=== PATIENT | female | born 1980 | race Caucasian/White ===

== ENCOUNTER 2017-12-29 21:03 | Emergency (ER) | payer OTHER, SELFPAY ==
[2017-12-29 21:10] VITALS: BP 126/74; PULSE 93; RESP 20; TEMP 37.2; O2SAT 99
--- NOTE | 2017-12-29 21:20 | W.ED.GENAD ---
Discharge Plan Disposition Patient Disposition: HOME Condition: Good Discharge Details Chief Complaint: Sorethroat Clinical Impression: Acute cervical adenitis Primary Care Provider: Rosa Martin ED Provider: Benigno Bentley Home Meds and New Rx's Prescriptions: New amoxicillin-pot clavulanate 875-125 mg tablet 1 tab PO BID 10 Days Qty: 20 RF: 0 fluconazole [Diflucan] 150 mg tablet 150 mg PO ONCE PRN (Reason: vaginal yeast infection) Qty: 1 RF: 0 No Action multivitamin [Daily Multi-Vitamin] 1 EACH tablet 1 ea PO DAILY RF: 0 Discharge Instructions Instructions: Adenitis (ED) Additional Instructions: Home to rest this evening. Small, frequent sips of fluids to maintain hydration. Please take Augmentin as prescribed. May use the prescribed Diflucan x1 if needed for the development of a vaginal yeast infection. Follow-up with regular doctor if not improving in 5 days time. Return to the emergency department for any acute concerns Medical Decision Making 37year-old female with left submandibular adenitis in the face of resolving URI, that was associated with expression of purulent fluid. I do feel that she ought to be treated for bacterial adenitis and will place on a course of Augmentin. Discussed with her home management. She does state that she has had antibiotic associated vaginal yeast infections therefore will prescribe a single one-time dose of Diflucan to be used if needed. Patient appropriate outpatient management. HPI General Mode of arrival: ambulatory. Date/Time Provider Initiated Documentation: 12/29/17 21:06. Limitations to Documentation: no limitations. Information obtained by: patient. HPI Narrative: Left submandibular swelling, discomfort, purulent discharge. This is a 37-year-old healthy female presents emerged department today complaining of 7-10 days of cough, congestion, sinus pain and pressure that is begun to improve. Associated with left submandibular lymphadenopathy and intraoral swelling. She states that she expressed some purulent fluid from her left tonsillar pillar at home and had some improvement. She has not had any change to voice or inability to swallow ; no shortness of breath Related Data Home Medications Medication Instructions Recorded Confirmed multivitamin [Multi-Vitamin Daily] 1 ea PO DAILY 11/07/14 12/29/17 amoxicillin-pot clavulanate 1 tab PO BID 10 Days #20 tab 12/29/17 fluconazole [Diflucan] 150 mg PO ONCE PRN #1 tab 12/29/17 Previous Rx's Medication Instructions Recorded amoxicillin-pot clavulanate 1 tab PO BID 10 Days #20 tab 12/29/17 fluconazole [Diflucan] 150 mg PO ONCE PRN #1 tab 12/29/17 Allergies Allergy/AdvReac Type Severity Reaction Status Date / Time prochlorperazine edisylate AdvReac Severe Extrapyramidal Unverified 12/29/17 21:14 [From Compazine] affects Metronidazole HCl AdvReac Intermediate HEADACHE Unverified 12/29/17 21:14 [From Flagyl] oxycodone AdvReac Intermediate VOMITS Unverified 12/29/17 21:14 General Stated Complaint: Sorethroat DO: 4 Review of Systems Review of Systems 4 systems reviewed and otherwise neg PFSH Family History Mother Essential hypertension Father Essential hypertension Heart disease Sister No problems noted. Brother No problems noted. Grandfather No problems noted. Grandfather No problems noted. Grandmother Personal history of malignant neoplasm Grandmother Personal history of malignant neoplasm Social History Smoking/Tobacco Use Status: Never Exam Narrative Exam Narrative: GEN: awake, alert, oriented 3. Pleasant, well groomed, interactive. HEAD: Normocephalic, atraumatic ENT: Mucous membranes moist, oropharynx with erythematous tonsillar pillars, the uvula is midline. There is no asymmetry. There is left submandibular tender adenopathy present. No overlying rash appreciated. Tympanic members are clear bilaterally without distention or erythema EYES: PERRL, EOMI NECK: Full ROM, no JAX, no menigismus CHEST/RESP: Nontender, clear to auscultation bilateral, no wheeze/rhonchi/rales CARDIOVASCULAR: RRR, no murmur, rub jamey. 2+ Rad pulse bilateral Neuro: Grossly normal neurologic exam, conversant, interactive. Psych: Speech fluent, thoughts congruent, affect normal Course Vital Signs Temperature 37.2 C 12/29/17 21:10 Pulse 93 H 12/29/17 21:10 Respiratory Rate 20 12/29/17 21:10 Blood Pressure 126/74 12/29/17 21:10 Pulse Oximetry 99 12/29/17 21:10 Temperature 37.2 C 12/29/17 21:10 Pulse 93 H 12/29/17 21:10 Respiratory Rate 20 12/29/17 21:10 Respiratory Effort Non-Labored 12/29/17 21:11 Blood Pressure 126/74 12/29/17 21:10 Blood Pressure Position Sitting 12/29/17 21:10 Pulse Oximetry 99 12/29/17 21:10 Oxygen Delivery Method Room Air 12/29/17 21:10 Oxygen Flow Rate 0 12/29/17 21:10 Pain Level 5 12/29/17 21:10
[2017-12-29] MEDS: Amoxicillin 875/Clav. 125 TAB PO (21:24)
--- NOTE | 2017-12-29 21:24 | ED.GENADUL_ITS ---
Discharge Plan Disposition Patient Disposition: HOME Condition: Good Discharge Details Chief Complaint: Sorethroat Clinical Impression: Acute cervical adenitis Primary Care Provider: Rosa Martin ED Provider: Benigno Bentley Home Meds and New Rx's Prescriptions: New amoxicillin-pot clavulanate 875-125 mg tablet 1 tab PO BID 10 Days Qty: 20 RF: 0 fluconazole [Diflucan] 150 mg tablet 150 mg PO ONCE PRN (Reason: vaginal yeast infection) Qty: 1 RF: 0 No Action multivitamin [Daily Multi-Vitamin] 1 EACH tablet 1 ea PO DAILY RF: 0 Discharge Instructions Instructions: Adenitis (ED) Additional Instructions: Home to rest this evening. Small, frequent sips of fluids to maintain hydration. Please take Augmentin as prescribed. May use the prescribed Diflucan x1 if needed for the development of a vaginal yeast infection. Follow-up with regular doctor if not improving in 5 days time. Return to the emergency department for any acute concerns Medical Decision Making 37year-old female with left submandibular adenitis in the face of resolving URI , that was associated with expression of purulent fluid. I do feel that she ought to be treated for bacterial adenitis and will place on a course of Augmentin. Discussed with her home management. She does state that she has had antibiotic associated vaginal yeast infections therefore will prescribe a single one-time dose of Diflucan to be used if needed. Patient appropriate outpatient management. HPI General Mode of arrival: ambulatory . Date/Time Provider Initiated Documentation: 12/29/17 21:06 . Limitations to Documentation: no limitations . Information obtained by: patient . HPI Narrative: Left submandibular swelling, discomfort, purulent discharge. This is a 37-year-old healthy female presents emerged department today complaining of 7-10 days of cough, congestion, sinus pain and pressure that is begun to improve. Associated with left submandibular lymphadenopathy and intraoral swelling. She states that she expressed some purulent fluid from her left tonsillar pillar at home and had some improvement. She has not had any change to voice or inability to swallow ; no shortness of breath Related Data Home Medications Medication Instructions Recorded Confirmed multivitamin [Multi-Vitamin Daily] 1 ea PO DAILY 11/07/14 12/29/17 amoxicillin-pot clavulanate 1 tab PO BID 10 Days #20 tab 12/29/17 fluconazole [Diflucan] 150 mg PO ONCE PRN #1 tab 12/29/17 Previous Rx's Medication Instructions Recorded amoxicillin-pot clavulanate 1 tab PO BID 10 Days #20 tab 12/29/17 fluconazole [Diflucan] 150 mg PO ONCE PRN #1 tab 12/29/17 Allergies Allergy/AdvReac Type Severity Reaction Status Date / Time prochlorperazine edisylate AdvReac Severe Extrapyramidal Unverified 12/29/17 21: 14 [From Compazine] affects Metronidazole HCl AdvReac Intermediate HEADACHE Unverified 12/29/17 21:14 [From Flagyl] oxycodone AdvReac Intermediate VOMITS Unverified 12/29/17 21:14 General Stated Complaint: Sorethroat DO: 4 Review of Systems Review of Systems 4 systems reviewed and otherwise neg PFSH Family History Mother Essential hypertension Father Essential hypertension Heart disease Sister No problems noted. Brother No problems noted. Grandfather No problems noted. Grandfather No problems noted. Grandmother Personal history of malignant neoplasm Grandmother Personal history of malignant neoplasm Social History Smoking/Tobacco Use Status: Never Exam Narrative Exam Narrative: GEN: awake, alert, oriented 3. Pleasant, well groomed, interactive. HEAD: Normocephalic, atraumatic ENT: Mucous membranes moist, oropharynx with erythematous tonsillar pillars, the uvula is midline. There is no asymmetry. There is left submandibular tender adenopathy present. No overlying rash appreciated. Tympanic members are clear bilaterally without distention or erythema EYES: PERRL, EOMI NECK: Full ROM, no JAX, no menigismus CHEST/RESP: Nontender, clear to auscultation bilateral, no wheeze/rhonchi/rales CARDIOVASCULAR: RRR, no murmur, rub jamey. 2+ Rad pulse bilateral Neuro: Grossly normal neurologic exam, conversant, interactive. Psych: Speech fluent, thoughts congruent, affect normal Course Vital Signs Temperature 37.2 C 12/29/17 21:10 Pulse 93 H 12/29/17 21:10 Respiratory Rate 20 12/29/17 21:10 Blood Pressure 126/74 12/29/17 21:10 Pulse Oximetry 99 12/29/17 21:10 Temperature 37.2 C 12/29/17 21:10 Pulse 93 H 12/29/17 21:10 Respiratory Rate 20 12/29/17 21:10 Respiratory Effort Non-Labored 12/29/17 21:11 Blood Pressure 126/74 12/29/17 21:10 Blood Pressure Position Sitting 12/29/17 21:10 Pulse Oximetry 99 12/29/17 21:10 Oxygen Delivery Method Room Air 12/29/17 21:10 Oxygen Flow Rate 0 12/29/17 21:10 Pain Level 5 12/29/17 21:10
[2017-12-29 21:33] VITALS: BP 133/80; PULSE 88; RESP 16; TEMP 36.8; O2SAT 99
== END 2017-12-29 21:34 | disposition home or self-care (01) ==
PROVIDERS: Emergency Provider Emergency Medicine; PCP Nurse Practitioner Gerontology
DX: L04.0 Acute lymphadenitis of face, head and neck (principal)
CPT/HCPCS: 99283

== ENCOUNTER 2019-01-28 00:37 | Outpatient (CLI) | payer OTHER, SELFPAY ==
[2019-01-28 08:00] LABS: Hemoglobin A1C 5.2 % (4.5-6.2)
[2019-01-28 08:23] LABS: Calculated LDL 109 mg/dL; Cholesterol 184 mg/dL (50-200); HDL Cholesterol 60 mg/dL (40-60); Triglyceride 77 mg/dL (30-150)
== END 2019-01-28 00:57 ==
PROVIDERS: PCP Nurse Practitioner; Visit Provider Nurse Practitioner
DX: Z13.6 Encounter for screening for cardiovascular disorders (principal); Z13.1 Encounter for screening for diabetes mellitus
CPT/HCPCS: 36415; 80061; 83036

== ENCOUNTER 2019-01-28 03:10 | Outpatient (CLI) | payer OTHER, SELFPAY ==
--- NOTE | 2019-01-28 08:40 | DI.US_ITS ---
EXAM: US PELVIS TRANSVAGINAL CLINICAL HISTORY: Irregular menses, N92.6 TECHNIQUE: Ultrasound performed using standard protocol. COMPARISON: No exams were available for comparison FINDINGS: Pelvic ultrasound was performed transabdominal and transvaginally. Please see the accompanying data sheet for measurements of the pelvic structures. Uterus is unremarkable in appearance with a 4 brandy meter homogeneous endometrial stripe. No free fluid identified in the cul-de-sac. Limited scanning of the kidneys is unremarkable. The ovaries have a normal follicular appearance. Note is made of prominence of ovarian veins bilater ally measuring up to 13-14 millimeters in diameter, clinical correlation requested regarding any poss ibility of pelvic congestion syndrome. IMPRESSION: Unremarkable examination except for prominent pelvic veins, consider pelvic congestion syndrome. Ple ase correlate clinically.
== END 2019-01-28 03:30 ==
PROVIDERS: PCP Nurse Practitioner; Visit Provider Obstetrics & Gynecology
DX: N92.6 Irregular menstruation, unspecified (principal); N94.89 Other specified conditions associated with female genital organs and menstrual cycle
CPT/HCPCS: 76830; 76856

== ENCOUNTER 2019-01-30 10:50 | Inpatient (IN) | payer OTHER, SELFPAY ==
[2019-01-30] VITALS (89 sets, daily range): BP systolic 77–115; BP diastolic 40–70; PULSE 68–113; RESP 10–36; TEMP 37–39; O2SAT 95–100
[2019-01-30] MEDS: Normal Saline 1,000 ML 1000 ML IV ×2 (11:25→12:42)
--- NOTE | 2019-01-30 11:31 | W.ED.GENAD ---
Discharge Plan Disposition Patient Disposition: [facility] INPATIENT Condition: Serious Discharge Details Chief Complaint: Abd Prob Clinical Impression: Nausea & vomiting, Acute hypotension, RUQ abdominal tenderness Primary Care Provider: Monique Bruno ED Provider: Julián Pena Home Meds and New Rx's Prescriptions: No Action ibuprofen 200 mg tablet 200 mg PO Q6H PRNRF: 0 Medical Decision Making 1130??38-year-old female presents with nausea, intractable vomiting, left upper abdominal pain since last night. Suspect gastritis. Patient notes Zofran not working. Allergy to Compazine. Has tolerated Phenergan in the past and requests this. We will give Phenergan IV slowly. Will give IV fluid bolus. Consider biliary disease. Will check LFTs. Less likely pancreatitis. Will check lipase. -- Labs reviewed and non diagnostic. LFTs nl. Lipase nl. Plan to give additional NS 1L. -- Patient hypotensive 77/40. Abdomen re examined and ttp RUQ. No peritoneal findings. Now febrile [address]F. Will CT abdomen and pelvis to assess for acute surgical process. Consider ulcer although no hematemesis, bright red blood per rectum or melena. --CT the abdomen pelvis interpreted by radiology: IMPRESSION: 1. No calcified gallstones. No definite gallbladder wall thickening or pericholecystic fluid. No significant biliary ductal dilatation. 2. The bowel is not opacified with contrast but there are findings suspicious for some bowel wall thickening particularly involving the distal small bowel. Findings could represent enteritis. 3. Small amount of free fluid within the pelvic cul-de-sac likely physiologic in a patient this age. 4. Prominent pelvic venous structures noted in the adnexa bilaterally greater on the left than the right. Prominence of the ovarian veins. In the appropriate setting the findings could be related to pelvic congestion syndrome. -- Repeat Hb decreased to 12.8 - suspect dillutional but will need to trend. Patient to recieve another 500mL bolus. 18:35 -- On reassessment, patient still feels generally weak. BP improved to 100/56 and HR improved 90s. Plan to admit. I called and spoke with Dr. Mireles who will admit the patient. He request surgery be notified of the patient's presentation. Patient has received approximately 2.5L IVF. 18:40 -- I called and consulted Dr. Westfall and discussed ED presentation and course including diagnostics. HPI General Mode of arrival: ambulatory. Date/Time Provider Initiated Documentation: 01/30/19 10:53. Limitations to Documentation: no limitations. Information obtained by: patient. HPI Narrative: 38-year-old female here with chief complaint of nausea. Patient notes she has been nauseous and vomiting every hour since last night around 9 PM. Symptoms are severe with no modifiers. She took Zofran 2 times this morning without relief. She has associated left upper abdominal discomfort that she believes is dyspepsia. She states she did have some abdominal pain prior to the onset of vomiting. She denies associated loose stool. There is a coworker with similar GI distress although shorter duration. She denies recent travel. No exotic or undercooked foods. Related Data Home Medications Medication Instructions Recorded Confirmed ibuprofen 200 mg tablet 200 mg PO Q6H PRN 01/28/19 01/30/19 Allergies Allergy/AdvReac Type Severity Reaction Status Date / Time prochlorperazine edisylate Allergy Severe Extrapyramidal Unverified 01/30/19 11:25 [From Compazine] affects Metronidazole HCl AdvReac Intermediate HEADACHE Unverified 01/30/19 11:25 [From Flagyl] oxycodone AdvReac Intermediate VOMITS Unverified 01/30/19 11:25 General Stated Complaint: Abd Prob DO: 3 Review of Systems All systems reviewed & are unremarkable except as noted in HPI and below Constitutional Constitutional: Denies fever(s) Gastrointestinal Gastrointestinal: Reports abdominal pain, Denies melena, Denies hematochezia, Denies coffee ground emesis, Denies diarrhea, Reports nausea and Reports vomiting PFSH Family History Mother Essential hypertension Father Essential hypertension Heart disease Aortic stenosis, CABG with valve in 2014 Alcohol abuse Colon cancer hemicolectomy Sister Cancer Substance abuse Maternal Grandfather No problems noted. Paternal Grandfather , MVA 1986 No problems noted. Maternal Grandmother Breast cancer Paternal Grandmother Colorectal cancer Daughter No problems noted. Daughter No problems noted. Social History Smoking/Tobacco Use Status: Never Alcohol Intake: current Alcohol Intake frequency: 0-2 drinks per day Alcohol type: wine Drug use: Never Substance use type: does not use Caregiver/Support person: No Household members: spouse and children Housing: house Communication Needs: Corrective Lenses Do you need help understanding health information?: Never Pets and animals: Yes Pets and animals: cat(s) Sexually active: Yes Do you think of yourself as: straight/heterosexual Current gender identity: female What is your relationship status?: How often do you talk on the phone with friends or family?: twice per week How often do you get together with friends or relatives?: once per week How often do you attend yazidi or episcopalian services?: decline to answer Do you belong to any clubs or organized social groups?: no Panel score (0-1 are the most socially isolated patients): 2 What type of physical activity do you participate in: bicycling, other Details: Skiing and running Duration: 45-60 minutes/day Frequency: 5-6 times per week Carmencita/Roman Catholic: None Special carmencita needs: No Seatbelt use: always Helmet use: Yes Drive intox or ride w/intox jitney driver: No Do you feel safe at home: Yes Do you feel safe in your relationship?: Yes Exam Const General: cooperative and uncomfortable HENKS Head: normocephalic Mouth: mucous membranes dry Eyes Conjunctivae: normal conjunctivae Sclera: normal sclerae Neck Neck: trachea midline and supple Resp Auscultation: clear to auscultation bilaterally, no rales, no rhonchi and no wheezes Cardio Jugular venous pressure: no JVD Rate: tachycardic Rhythm: regular rhythm GI Palpation: soft, not firm, no guarding, no masses, not rigid and tender in the RUQ; with no rebound tenderness Skin General skin exam: no rashes or lesions noted Neuro General: alert, awake and tone normal Extrem General: no edema Psych Appearance: grossly normal Mental Status: mental status grossly normal Course Vital Signs Vital signs: Vital Signs Temperature 37.0 C 01/30/19 10:53 Pulse 108 H 01/30/19 10:53 Respiratory Rate 20 01/30/19 10:53 Blood Pressure 115/70 01/30/19 10:53 Pulse Oximetry 98 01/30/19 10:53 Temperature 37.0 C 01/30/19 10:53 Temperature Source Tympanic 01/30/19 10:53 Pulse 108 H 01/30/19 10:53 Respiratory Rate 20 01/30/19 10:53 Respiratory Effort Non-Labored 01/30/19 11:19 Blood Pressure 115/70 01/30/19 10:53 Pulse Oximetry 98 01/30/19 10:53 Oxygen Delivery Method Room Air 01/30/19 10:53 Oxygen Flow Rate 0 01/30/19 10:53 Pain Level 6 01/30/19 10:53 Comment 01/30/19 10:53
[2019-01-30 11:37] LABS: Abs Immature Grans 0.01 k/cumm (0.0-0.09); Absolute Basophil Count 0.02 k/cumm (0.0-0.2); Absolute Eosinophil Count 0.01 k/cumm (0.0-0.7); Absolute Lymphocyte Count 0.17 k/cumm (1.2-3.4); Absolute Monocyte Count 0.63 k/cumm (0.11-0.7); Absolute Neutrophil Count 7.85 k/cumm (1.2-6.7); Basophils % 0.2; Eosinophils % 0.1; HGB 13.9 g/dL (12.0-15.5); Immature Grans % 0.1; Mean Corp. HGB Concentration 33.1 g/dL (32.0-36.0); Mean Corpuscular Volume 90.5 fL (80-95); Mean Platelet Volume 9.7 fL (8.0-11.0); Monocytes % 7.2; Neutrophils % 90.4; Platelet Count 332 x1000/uL (130-400); RBC 4.64 m/cumm (4.00-5.20); RBC Distribution Width 13.2 % (11.7-14.6); White Blood Cell Count 8.69 k/cumm (4.4-10.8)
[2019-01-30 11:58] LABS: ALT 21 U/L (14-59); AST 15 U/L (15-37); Albumin 3.9 g/dL (3.4-5.0); Alkaline Phosphatase 54 U/L (46-116); Anion Gap 11.3 mmol/L (3-11); BUN 19 mg/dL (7-18); Bilirubin, Total 0.8 mg/dL (0.2-1.0); CO2 24.7 mmol/L (21.0-32.0); CREATININE 0.78 mg/dL (0.55-1.02); Calcium 8.9 mg/dL (8.5-10.1); Chloride 106 mmol/L (98-107); Glucose 115 mg/dL (70-100); Lipase 53 U/L (73-393); Potassium 3.7 mmol/L (3.5-5.1); Sodium 142 mmol/L (136-145); Total Protein 7.8 g/dL (6.4-8.2)
[2019-01-30] MEDS: FAMOTIDINE 20 MG/50 ML BAG 200 MG IVPB (12:01)
[2019-01-30] MEDS: DEXTROSE 5%-0.9% SALINE 1,000 ML 150 ML IV (13:42)
[2019-01-30 13:46] LABS: Bilirubin Negative (Negative); Blood Trace-lysed (Negative); Clarity Clear (Clear); Glucose Negative (Negative); Ketones Trace mg/dL (Negative); Leukocyte Esterase Negative (Negative); Nitrite Negative (Negative); Urobilinogen 0.2 EU/dL (Up TO 0.2); pH 7.5 (5-8)
[2019-01-30 13:47] LABS: Lactate 1.3 mmol/L (0.6-1.4)
[2019-01-30 13:53] LABS: HCT 38.5 % (36.0-46.0); HGB 12.8 g/dL (12.0-15.5); Mean Corp. HGB Concentration 33.2 g/dL (32.0-36.0); Mean Corpuscular Hemoglobin 30.5 pg (27.0-33.0); Mean Corpuscular Volume 91.7 fL (80-95); Mean Platelet Volume 9.5 fL (8.0-11.0); Platelet Count 291 x1000/uL (130-400); RBC Distribution Width 13.1 % (11.7-14.6); White Blood Cell Count 7.53 k/cumm (4.4-10.8)
[2019-01-30 14:05] LABS: Bacteria Rare HPF (Negative); C & S Indicated? No; Casts Negative LPF (Negative); Crystals Negative HPF (Negative); Epithelial Cells Moderate HPF (Negative); Mucus Trace (Negative); Other Cells Rare Renal (Negative); WBC 0-2 HPF (0-5)
--- NOTE | 2019-01-30 14:16 | DI.CT_ITS ---
EXAM: CT ABDOMEN PELVIS W CLINICAL HISTORY: ruq ttp, low BP, nausea and vomiting TECHNIQUE: The exam was performed according to the usual protocol utilizing 100 cc's of Omnipaque 35 0. COMPARISON: No exams were available for comparison FINDINGS: No focal consolidating infiltrates are seen in the lung bases. The dome of the liver is not included. No hepatic mass is seen. The portal, superior mesenteric and splenic veins are patent. There are no stones seen within the gallbladder. No gallbladder wall thickening is present. There i s no biliary ductal dilatation. There is decreased attenuation adjacent to the gallbladder in the li raimundo. This may represent focal fatty infiltration. The pancreas and adrenal glands are unremarkable. Spleen is unremarkable except for a 9 mm cyst anteriorly. The kidneys, ureters and bladder are unremarkable. There are prominent venous structures within the adnexa bilaterally. The findings are more prominent on the left. This may represent pelvic congestion syndrome. The aorta is of normal caliber. There are mildly prominent lymph nodes in the mesentery in the left periaortic region. There is a small amount of free fluid in the pelvis. This may be physiologic in a patient of this ag e. No pneumoperitoneum is present. There does appear to be mild bowel wall thickening in the right lower quadrant. This appears to be w ithin the distal small bowel/ileum. There is no evidence of bowel obstruction. The appendix is not visualized definitively. There is a moderate amount of stool seen throughout the colon. There are mild degenerative changes seen in the spine. Incidental note is made of a small fat containing umbilical hernia. IMPRESSION: 1. Mild bowel wall thickening in the distal small bowel/ileum. The findings are suspicious for enter itis. 2. No evidence of cholelithiasis or gallbladder wall thickening. No biliary ductal dilatation. 3. Prominent veins in the adnexa bilaterally. This may reflect pelvic congestion syndrome. Please c orrelate clinically. 4. Small amount of free fluid in the pelvis. This may be physiologic in a patient this age.
[2019-01-30] MEDS: Omnipaque 350 MG/ML 100 ML BTL IJ (14:20)
[2019-01-30] MEDS: Normal Saline Flush 10 ML SYR IVP ×2 (14:21→23:02)
--- NOTE | 2019-01-30 14:34 | DI.VRAD_ITS ---
Addendum created by Damaris Goode MD on 01/30/2019 7:12:38 PM EST Results discussed withMiriam Sykeskhloe at 6:12 PM central time Initial report created on 01/30/2019 2:34:20 PM EST PROCEDURE INFORMATION: Exam: CT Abdomen And Pelvis With Contrast Exam date and time: 01/30/2019 2:10 PM Clinical history: 38 years old, female; Abdominal pain; Localized; Right upper quadrant (ruq) TECHNIQUE: Imaging protocol: Computed tomography of the abdomen and pelvis with intravenous contrast. Contrast material: OMNIPAQUE 350; Contrast volume: 100 ml; Contrast route: IV 20G RAC; COMPARISON: US PELVIS TRANSVAGINAL 01/28/2019 9:18 AM FINDINGS: Lungs: Lung bases are clear. Pleural effusion is not seen. Liver: No focal intrahepatic abnormality is identified. Gallbladder and bile ducts: No calcified gallstones are identified. There is no definite gallbladder wall thickening, significant pericholecystic fluid identified. There is no significant intra-nor extrahepatic biliary ductal dilatation. Pancreas: Pancreas is unremarkable. No pancreatic duct dilatation. No peripancreatic inflammation. Spleen: There is a small cyst noted anteriorly within the spleen. It measures approximately 9 mm in maximum diameter on series 4 image 8. Spleen is normal in size. Adrenals: Adrenals are unremarkable Kidneys and ureters: No radiopaque urinary tract calculi. No evidence of hydronephrosis. Stomach and bowel: There is no evidence of bowel obstruction, mass or pneumatosis. There are findings suspicious for possible bowel wall thickening particularly involving the distal small bowel/ileum. Findings could represent enteritis. Appendix: The appendix is not well delineated but there are no definite findings to suggest acute appendicitis. Intraperitoneal space: Small amount of free fluid is seen within the pelvic cul-de-sac which may be physiologic in a patient of this age. No significant ascites focal collections or free intraperitoneal air is identified. Vasculature: Aorta is non-aneurysmal. Lymph nodes: There are a few small mesenteric nodes which do not appear significantly enlarged by size criteria. Bladder: Bladder is unremarkable Reproductive: The uterus is anteverted. Prominent pelvic veins are noted greater on the left than the right. There is enlargement of the ovarian veins. There is no evidence of an adnexal mass. Bones/joints: There is no acute or destructive bony abnormality. Soft tissues: No significant subcutaneous abnormality. Incidental note is made of a small fat containing ventral/embolus hernia. IMPRESSION: 1. No calcified gallstones. No definite gallbladder wall thickening or pericholecystic fluid. No significant biliary ductal dilatation. 2. The bowel is not opacified with contrast but there are findings suspicious for some bowel wall thickening particularly involving the distal small bowel. Findings could represent enteritis. 3. Small amount of free fluid within the pelvic cul-de-sac likely physiologic in a patient this age. 4. Prominent pelvic venous structures noted in the adnexa bilaterally greater on the left than the right. Prominence of the ovarian veins. In the appropriate setting the findings could be related to pelvic congestion syndrome. Dictated and Authenticated by: Damaris Goode MD. Ordering:SIMEON Gallego MD
[2019-01-30] MEDS: Normal Saline 500 ML IV (18:47)
--- NOTE | 2019-01-30 19:46 | NUR.NOTE ---
Nursing Note: IVF rate decreased to 125ml/hour
--- NOTE | 2019-01-30 20:54 | SCONE_ITS ---
Date of service: 01/30/19 Time of Service: 20:54 Assessment and Plan Assessment and plan (1) Enteritis: Status: Acute Assessment and plan: I did speak w/ the rads who read her CT. The GB was nl- there was no GB wall thickening, no pericholecystic fluid, no GS, the intra/extra-H. ducts are nl. Bile ducts and pancreatic ducts are nl. Pancrease appears nl. There is no s/s of SBO. There is no s/s of any conduit cleaner pathology. The appendix wasn't seen. But, there was no fecalith/there is fluid in there area. There is some mild bowel wall thickening in the distal ileum/TI region. It does not involve the cecum. (there is no hx of IBD). There was a sm amount of fluid in the abdomen, but this is w/in the parameters of physiologic. (2) Hypotension: Status: Acute Assessment and plan: Her mucous membranes are still very dry. Her urine still appears concentrated despite for 4L of IVF. She has had a period ongoing for over 30days, but she did not have a Hgb checked. Her last Hgb on file was 07/02/15 nad was 12. her intial hgb on presentation to the ED was 123.9. repat was 12.8 and #3 11.9. Excluding - her hgb seems to run around 12. Again, she has been bleeding for the last 30 days, but did not have a hgb done on 01/28. Her hgb at this time may actually be lower than her nl of 12. She has not vomited up any blood at home. She has not vomited blood since she h as been in the ED. She does feel slt nauseated. She has no abdominal pain at this time, no distention. Mild pain with deep palpation- but this is prob from wretching. She is not passing any blood through the lower GI tract. I don't think this is from blood loss or sepsis. Continue hydration and antiemetics. follow hgb. PPI supportive care (3) Dehydration, moderate: Status: Acute History of Present Illness Narrative: pt presented to ED today w/ c/o of N/V. She was sin her normal state of good health [place] at work, but she has been having lots of back pain. This is more low back adn sciatica area, not in the T10 o the right area. She has had children. She has been taking lg amounts of NSAID's for this pain. She is not currently on a stomach meds. She has no HX of stomach problems. 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 She was started on a PPI, but didn't notice any difference and is not currently on any stomach meds. She does drink lots of coffee. Social ETOH use and non-smoker. She is very active. No one at home is ill. A co worker did have the flu- but it only lasted 24 hrs. Everyone in the family ate the same food and no one is ill. Prior to Friday night- She has not had any RUQ pain, no fatty food/pork intolerances. She has had no problems w/ H/I. She has no reflux s/s. She has had no diarrhea assoc w/ eating. She did eat maldonado last night. Prior to this episode, her bowels are regular. She has had no bloating or diarrhea. no wt loss, no food intolerances/allergies. She doesn't think she vomited up any blood. She has not noticed any blood om her stools. She has been having problems w/ continuous menstrual bleeding, and has had a period for more than 30 days. She had an pelvic US done on 01/28 than was nl except for enlargement of one of the ovarian veins. She says she doesn't have any abdominal pain currently. She had no pain prior to the n/v. She kobi fever/chills. She has no abdominal pain at this time. She has not had any diarrhea. She has never had anything like beofre. She denies trauma or unusual activity. She feels very tired. The nausea has passed. She is noted to be still very hypotensive adn dizzy when she stands She has not thrown up since she has been in the ED or ICU. She has not had a BM. Her urine is still very dark adn concentrated and has many a 1/2 tsp of blood in it. Her mucous membranes are still very dry. I did perform a bedside US- I was able to visualize the GB. There was no pericholecystic fluid, no wall thickening, no stones or sludge. No shadowing. The V. Cava appears full. There was no fluid around the liver. Consults Consult date: 01/30/19 Requesting physician: Cedrick Mireles Review of Systems All systems reviewed & are unremarkable except as noted in HPI and below Constitutional Constitutional: Reports as per HPI [facility] Medical History (Updated 01/30/19 @ 23:30 by Michelle Westfall DO) Dehydration, moderate (Acute) Enteritis (Acute) Hypotension (Acute) Nausea and vomiting in adult (Acute) Family History Mother Essential hypertension Father Essential hypertension Heart disease Aortic stenosis, CABG with valve in 2015 Alcohol abuse Colon cancer hemicolectomy Sister Cancer Substance abuse Maternal Grandfather No problems noted. Paternal Grandfather , MVA 1986 No problems noted. Maternal Grandmother Breast cancer Paternal Grandmother Colorectal cancer Daughter No problems noted. Daughter No problems noted. Social History Smoking/Tobacco Use Status: Never Alcohol Intake: current Alcohol Intake frequency: 0-2 drinks per day Alcohol type: wine Drug use: Never Substance use type: does not use Caregiver/Support person: No Household members: spouse and children Housing: house Communication Needs: Corrective Lenses Do you need help understanding health information?: Never Pets and animals: Yes Pets and animals: cat(s) Sexually active: Yes Do you think of yourself as: straight/heterosexual Current gender identity: female What is your relationship status?: How often do you talk on the phone with friends or family?: twice per week How often do you get together with friends or relatives?: once per week How often do you attend congregation or pentecostal services?: decline to answer Do you belong to any clubs or organized social groups?: no Panel score (0-1 are the most socially isolated patients): 2 What type of physical activity do you participate in: bicycling, other Details: Skiing and running Duration: 45-60 minutes/day Frequency: 5-6 times per week Carmencita/Temple: None Special carmencita needs: No Seatbelt use: always Helmet use: Yes 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 Do you feel safe at home: Yes Do you feel safe in your relationship?: Yes Exam Const General: cooperative, healthy appearing, comfortable, no acute distress, well developed and well groomed Nutritional Appearance: average body habitus and well nourished Orientation: alert, awake and oriented x3 [facility] Head: normal to inspection, normocephalic and atraumatic Ears: hearing grossly normal bilaterally and external ears normal General nose exam: external nose normal Face and sinus: normal facial exam and sinuses nontender Mouth: oral mucosae normal, lip normal, tongue normal and moist mucous membranes abnormal Teeth and gingiva: dentition normal Eyes General: appearance normal, both eyes and all related structures Conjunctivae: conjunctivae normal Sclera: sclerae normal Pupils: PERRL Neck Neck: normal visual inspection and full ROM Chest Chest: normal inspection of the chest Resp Effort & Inspection: normal respiratory effort, able to speak in complete sentences, no cough, no nasal flaring, not tachypneic and no use of accessory muscles Auscultation: clear to auscultation bilaterally, no rales, no rhonchi and no wheezes Cardio Jugular venous pressure: no JVD Rate: regular rate Rhythm: regular rhythm GI Inspection: normal to inspection, no edema and non-distended Palpation: soft, no masses, nontender and No ascites Auscultation: normal bowel sounds Other: no pain. some mild soreness in upper abdomen- but this may be from retching. no distention . no R/R/G + BS Skin General skin exam: no rashes or lesions noted Trauma: no lacerations or abrasions Neuro General: alert, oriented x3, oriented, gait normal, moves all extremities, no focal motor deficits and CN's II-XI intact bilaterally Cognition: normal cognition Speech: speech normal Gait: normal gait Motor: muscle tone normal throughout Extrem General: normal to inspection, full ROM and no clubbing, cyanosis or edema Psych Appearance: grossly normal and well kempt Mental Status: mental status grossly normal Speech and Movement: speech and movement normal Affect: normal affect Results Last Vital Signs Temp 37.2 C 01/30/19 20:21 Pulse 83 01/30/19 19:46 Resp 20 01/30/19 19:50 BP 89/48 L 01/30/19 19:46 Pulse Ox 98 01/30/19 19:50 Labs Result diagrams: 01/30/19 20:42 01/30/19 20:42 Labs: Laboratory Results - last 24 hr 01/30/19 01/30/19 01/30/19 11:00 11:00 13:27 WBC 8.69 RBC 4.64 Hgb 13.9 Hct 42.0 MCV 90.5 MCH 30.0 MCHC 33.1 RDW 13.2 Plt Count 332 MPV 9.7 Immature Gran % 0.1 Neutrophils % 90.4 Lymphocytes % 2.0 Monocytes % 7.2 Eosinophils % 0.1 Basophils % 0.2 Absolute Neutrophils 7.85 H Absolute Lymphocytes 0.17 L Absolute Monocytes 0.63 Absolute Eosinophils 0.01 Absolute Basophils 0.02 Sodium 142 Potassium 3.7 Chloride 106 Carbon Dioxide 24.7 Anion Gap 11.3 H BUN 19 H Creatinine 0.78 Estimated GFR/1.73 m2 >= 60.00 Glucose 115 H Lactate 1.3 Calcium 8.9 Total Bilirubin 0.8 AST 15 ALT 21 Alkaline Phosphatase 54 Total Protein 7.8 Albumin 3.9 Lipase 53 L Urine Color Urine Clarity Urine pH Ur Specific [place] Urine Protein Urine Ketones Urine Blood Urine Nitrite Urine Bilirubin Urine Urobilinogen Ur Leukocyte Esterase Urine RBC Urine WBC Ur Epithelial Cells Urine Crystals Urine Bacteria Urine Casts Urine Mucus Urine Other Ur Culture Indicated? Urine Glucose 01/30/19 01/30/19 13:27 13:40 WBC 7.53 RBC 4.20 Hgb 12.8 Hct 38.5 MCV 91.7 MCH 30.5 MCHC 33.2 RDW 13.1 Plt Count 291 MPV 9.5 Immature Gran % Neutrophils % Lymphocytes % Monocytes % Eosinophils % Basophils % Absolute Neutrophils Absolute Lymphocytes Absolute Monocytes Absolute Eosinophils Absolute Basophils Sodium Potassium Chloride Carbon Dioxide Anion Gap BUN Creatinine Estimated GFR/1.73 m2 Glucose Lactate Calcium Total Bilirubin AST ALT Alkaline Phosphatase Total Protein Albumin Lipase Urine Color Yellow Urine Clarity Clear Urine pH 7.5 Ur Specific [place] 1.020 Urine Protein Negative Urine Ketones Trace H Urine Blood Trace-lysed H Urine Nitrite Negative Urine Bilirubin Negative Urine Urobilinogen 0.2 Ur Leukocyte Esterase Negative Urine RBC 3-5 H Urine WBC 0-2 Ur Epithelial Cells Moderate Urine Crystals Negative Urine Bacteria Rare Urine Casts Negative Urine Mucus Trace Urine Other Rare renal Ur Culture Indicated? No Urine Glucose Negative
[2019-01-30 21:01] LABS: Lactate 0.8 mmol/L (0.6-1.4)
[2019-01-30 21:02] LABS: Abs Immature Grans 0.01 k/cumm (0.0-0.09); Absolute Basophil Count 0.01 k/cumm (0.0-0.2); Absolute Lymphocyte Count 0.44 k/cumm (1.2-3.4); Absolute Monocyte Count 0.46 k/cumm (0.11-0.7); Absolute Neutrophil Count 5.05 k/cumm (1.2-6.7); Basophils % 0.2; HCT 36.9 % (36.0-46.0); HGB 11.9 g/dL (12.0-15.5); Immature Grans % 0.2; Lymphocytes % 7.4; Mean Corp. HGB Concentration 32.2 g/dL (32.0-36.0); Mean Corpuscular Volume 92.9 fL (80-95); Mean Platelet Volume 9.6 fL (8.0-11.0); Monocytes % 7.7; Neutrophils % 84.5; Platelet Count 256 x1000/uL (130-400); RBC 3.97 m/cumm (4.00-5.20); RBC Distribution Width 13.4 % (11.7-14.6); White Blood Cell Count 5.97 k/cumm (4.4-10.8)
--- NOTE | 2019-01-30 21:14 | W.PM.HP.N ---
Date of service: 01/30/19 Time of Service: 21:14 Assessment and Plan Assessment and plan (1) RUQ abdominal pain: Status: Acute Assessment and plan: possible gastritis vs PUD vs GB disease. She may have developed stress ulcer or NSAID ulcer, her labs are not consistent w/ GB disease or pancreatitis and certainly nothing seen on her CT abd/pelvis other than possible enteritis however she has had no diarrhea to suggest and enteritis. I will allow her clear liquids and treat her w/ PPI and get a formal abdominal US either tomorrow or Friday and ask Dr. Westfall from surgery to evaluate her tonight. I will repeat her labs in the a.m. (2) Dehydration: Status: Acute Assessment and plan: Her BP seems to have stabilized after 3 1/2 liters of fluids. I have decreased her iv fluid rate but will watch her overnight in the ICU to be sure that she does not become hypotensive again. I have typed and screened her in the event she shows signs of GI bleeding. (3) Hypotension: Status: Acute Assessment and plan: continue iv fluids and monitor her hemogram and monitor for further hypotension. Qualifiers: Hypotension type: hypotension due to hypovolemia Qualified Code(s): I95.89 - Other hypotension; E86.1 - Hypovolemia (4) Anemia: Status: Acute Assessment and plan: she was not anemic on presentation but I suspect she was hemoconcentrated, she dropped 2 gm after 3 liters of iv fluids. I suspect that she was anemic from her metrorrhagia. I will chekc her iron levels off her admission labs from presentation to the ER. monitor her hemogram overnight. 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 She had been experiencing increased low back pain w/ radiation in left leg d/t prolonged standing in the OR this past week so she had been taking 600 to 1000 mg ibuprofen. However, she developed protracted vomting and nausea beginning Friday night. No hematemesis and no melena nor hematochezia or diarrhea. No rigors or chills and no dysuria or hematuria. She does report menorrhagia w/ daily menstrual bleeding for about one month which just stopped this past Friday. She followed up with her [employer] Dr. Freeman on Friday and had a pelvic US which she says was totally normal. For her nausea, the patient tried multiple doses of zofran w/out relief of her nausea and vomiting and therefore had a friend bring her to the ER so her would not have to bring her children into the ER with her. Upon presentation to the ER, the patient was hypotensive, 85/41 and 77/40 but not tachycardic, HR in the 80's and afebrile. During her stay in the ER she continued to demonstrate hypotensive even after couple liters of iv fluids. Workup in the ER included routine labs: CBC, CMP, lactate, lipase and CT of abdomen and pelvis with contrast only demonstrated some distal small bowel wall thickening suggestive of enteritis. No dilatation of the GB, no gall stones, no hydronephrosis, no ascites. She has some physiologic pelvic fluid in the cul de sac and she has prominent bilateral venous congestion of the ovarian veins. Labs did not show any leukocytosis and LFT's, renal function, electrolytes, lactate and lipase were all normal. CBC did not show any leukocytosis nor anemia. Labs were repeated and again did not show any leukocytosis nor any change in her LFT's. Potassium dropped to 3.4 and calcium dropped to 7.6 gm after 3 liters of iv fluids. Her hemoglobin dropped from 13.9 gm to 11.9 gm. Patient is admitted for hypotension and abdominal pain of undetermined origin. Surgical consultation has been requested of Dr. Westfall. [facility] Family History Mother Essential hypertension Father Essential hypertension Heart disease Aortic stenosis, CABG with valve in 2014 Alcohol abuse Colon cancer hemicolectomy Sister Cancer Substance abuse Maternal Grandfather No problems noted. Paternal Grandfather , MVA 1986 No problems noted. Maternal Grandmother Breast cancer Paternal Grandmother Colorectal cancer Daughter No problems noted. Daughter No problems noted. Social History Smoking/Tobacco Use Status: Never Alcohol Intake: current Alcohol Intake frequency: 0-2 drinks per day Alcohol type: wine Drug use: Never Substance use type: does not use Caregiver/Support person: No Household members: spouse and children Housing: house Communication Needs: Corrective Lenses Do you need help understanding health information?: Never Pets and animals: Yes Pets and animals: cat(s) Sexually active: Yes Do you think of yourself as: straight/heterosexual Current gender identity: female What is your relationship status?: How often do you talk on the phone with friends or family?: twice per week How often do you get together with friends or relatives?: once per week How often do you attend adventist or cheondoism services?: decline to answer Do you belong to any clubs or organized social groups?: no Panel score (0-1 are the most socially isolated patients): 2 What type of physical activity do you participate in: bicycling, other Details: Skiing and running Duration: 45-60 minutes/day Frequency: 5-6 times per week Carmencita/Quaker: None Special carmencita needs: No Seatbelt use: always Helmet use: Yes Drive 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 Do you feel safe at home: Yes Do you feel safe in your relationship?: Yes Meds Home Medications and Allergies Home Medications Medication Instructions Recorded Confirmed Type ibuprofen 200 mg tablet 200 mg PO Q6H PRN 01/28/19 01/30/19 History Allergies Allergy/AdvReac Type Severity Reaction Status Date / Time prochlorperazine edisylate Allergy Severe Extrapyramidal Unverified 01/30/19 11:25 [From Compazine] affects Metronidazole HCl AdvReac Intermediate HEADACHE Unverified 01/30/19 11:25 [From Flagyl] oxycodone AdvReac Intermediate VOMITS Unverified 01/30/19 11:25 Exam Const General: cooperative, well developed and ill appearing acutely Nutritional Appearance: average body habitus Orientation: alert, awake and oriented x3 HENMT Head: normal to inspection, no palpable skull fracture, normocephalic and atraumatic Ears: hearing grossly normal bilaterally, external ears normal, TM's normal bilaterally and EAC's normal General nose exam: external nose normal, nares normal, nasal mucous membranes and turbinates normal and no nasal discharge Face and sinus: normal facial exam and sinuses nontender Mouth: oral mucosae normal Teeth and gingiva: dentition normal Throat: posterior oropharynx normal Neck Neck: normal visual inspection, full ROM, no lymphadenopathy and no JVD Thyroid: thyroid normal Carotids: normal carotid upstroke Lymphatic: no lymphadenopathy noted Resp Effort & Inspection: normal respiratory effort and able to speak in complete sentences Auscultation: clear to auscultation bilaterally Cardio Jugular venous pressure: no JVD Palpation: normal PMI Rate: tachycardic Rhythm: regular rhythm Heart Sounds: S1 normal, S2 normal, normal, physiologic split S2, no gallops and no murmurs Bruits: no abdominal aortic bruits and no carotid bruits Pulses: normal peripheral pulses GI Inspection: normal to inspection Palpation: soft, no hepatosplenomegaly and tender in the RUQ; Sims's sign negative, psoas sign negative and with no rebound tenderness Percussion: normal to percussion Auscultation: normal bowel sounds General: bimanual renal exam normal bilaterally, bladder normal to inspection, bladder normal to palpation and No CVA tenderness Bimanual Exam- Vagina & Uterus: bladder normal to palpation Back/Spine/Pelvis Back: no CVA tenderness Cervical Spine: normal cervical lordosis Thoracic/Lumbar Spine: thoracic and lumbar spine normal to inspection, No paraspinal tenderness and No straight leg raise positive Pelvis: no pain with anterior-posterior compression and no pain with lateral compression Sacroiliac joints: on the right nontender and on the left nontender Skin General skin exam: no rashes or lesions noted Lesions: no lesions Rashes: no rashes Neuro General: alert, awake, oriented x3, moves all extremities, no meningeal signs and no focal motor deficits Cognition: normal cognition Speech: speech normal Motor: muscle tone normal throughout and strength 5/5 throughout Sensory Exam: no sensory deficits noted Extrem General: normal to inspection, full ROM, normal capillary refill, no joint enlargement, no clubbing, cyanosis or edema, no pedal edema and no calf tenderness Psych Appearance: grossly normal Mental Status: mental status grossly normal Speech and Movement: speech and movement normal Mood: congruent mood Affect: normal affect Attitude: cooperative Thought Process: normal Thought Content: normal Insight: insight good Judgment: judgment good Results Labs Result diagrams: 01/30/19 13:27 01/30/19 11:00 Labs: Laboratory Results - last 24 hr 01/30/19 01/30/19 01/30/19 11:00 11:00 13:27 WBC 8.69 RBC 4.64 Hgb 13.9 Hct 42.0 MCV 90.5 MCH 30.0 MCHC 33.1 RDW 13.2 Plt Count 332 MPV 9.7 Immature Gran % 0.1 Neutrophils % 90.4 Lymphocytes % 2.0 Monocytes % 7.2 Eosinophils % 0.1 Basophils % 0.2 Absolute Neutrophils 7.85 H Absolute Lymphocytes 0.17 L Absolute Monocytes 0.63 Absolute Eosinophils 0.01 Absolute Basophils 0.02 Sodium 142 Potassium 3.7 Chloride 106 Carbon Dioxide 24.7 Anion Gap 11.3 H BUN 19 H Creatinine 0.78 Estimated GFR/1.73 m2 >= 60.00 Glucose 115 H Lactate 1.3 Calcium 8.9 Total Bilirubin 0.8 AST 15 ALT 21 Alkaline Phosphatase 54 Total Protein 7.8 Albumin 3.9 Lipase 53 L Urine Color Urine Clarity Urine pH Ur Specific [place] Urine Protein Urine Ketones Urine Blood Urine Nitrite Urine Bilirubin Urine Urobilinogen Ur Leukocyte Esterase Urine RBC Urine WBC Ur Epithelial Cells Urine Crystals Urine Bacteria Urine Casts Urine Mucus Urine Other Ur Culture Indicated? Urine Glucose 01/30/19 01/30/19 01/30/19 13:27 13:40 20:42 WBC 7.53 RBC 4.20 Hgb 12.8 Hct 38.5 MCV 91.7 MCH 30.5 MCHC 33.2 RDW 13.1 Plt Count 291 MPV 9.5 Immature Gran % Neutrophils % Lymphocytes % Monocytes % Eosinophils % Basophils % Absolute Neutrophils Absolute Lymphocytes Absolute Monocytes Absolute Eosinophils Absolute Basophils Sodium Potassium Chloride Carbon Dioxide Anion Gap BUN Creatinine Estimated GFR/1.73 m2 Glucose Lactate 0.8 Calcium Total Bilirubin AST ALT Alkaline Phosphatase Total Protein Albumin Lipase Urine Color Yellow Urine Clarity Clear Urine pH 7.5 Ur Specific [place] 1.020 Urine Protein Negative Urine Ketones Trace H Urine Blood Trace-lysed H Urine Nitrite Negative Urine Bilirubin Negative Urine Urobilinogen 0.2 Ur Leukocyte Esterase Negative Urine RBC 3-5 H Urine WBC 0-2 Ur Epithelial Cells Moderate Urine Crystals Negative Urine Bacteria Rare Urine Casts Negative Urine Mucus Trace Urine Other Rare renal Ur Culture Indicated? No Urine Glucose Negative Last Vital Signs Temp 37.2 C 01/30/19 20:21 Pulse 83 01/30/19 19:46 Resp 20 01/30/19 19:50 BP 89/48 L 01/30/19 19:46 Pulse Ox 98 01/30/19 19:50
[2019-01-30 21:17] LABS: ALT 17 U/L (14-59); AST 12 U/L (15-37); Albumin 3.1 g/dL (3.4-5.0); Alkaline Phosphatase 45 U/L (46-116); BUN 14 mg/dL (7-18); Bilirubin, Total 0.6 mg/dL (0.2-1.0); CREATININE 0.82 mg/dL (0.55-1.02); Calcium 7.6 mg/dL (8.5-10.1); Chloride 110 mmol/L (98-107); Glucose 97 mg/dL (70-100); Potassium 3.4 mmol/L (3.5-5.1); Sodium 143 mmol/L (136-145); Total Protein 6.6 g/dL (6.4-8.2)
[2019-01-30 21:33] LABS: Procalcitonin 0.1 ng/mL
[2019-01-30] MEDS: Lactated Ringers 1,000 ML 150 ML IV (21:41)
[2019-01-30] MEDS: Pantoprazole 40 MG VIAL IVP (23:02)
[2019-01-30 23:15] LABS: Magnesium 1.7 mg/dL (1.8-2.4)
[2019-01-31] VITALS (15 sets, daily range): BP systolic 92–113; BP diastolic 47–76; PULSE 62–88; RESP 16–43; TEMP 36.5–38.2; O2SAT 97–100
[2019-01-31] MEDS: MAGNESIUM SULFATE 2 GM/50 ML BAG IVPB (00:42)
[2019-01-31] MEDS: Normal Saline Flush 10 ML SYR IVP ×2 (03:05→22:03)
[2019-01-31] MEDS: Lactated Ringers 1,000 ML 200 ML IV ×2 (04:20→09:17)
[2019-01-31 06:54] LABS: Abs Immature Grans 0.02 k/cumm (0.0-0.09); Absolute Basophil Count 0.02 k/cumm (0.0-0.2); Absolute Eosinophil Count 0.02 k/cumm (0.0-0.7); Absolute Lymphocyte Count 0.78 k/cumm (1.2-3.4); Absolute Monocyte Count 0.54 k/cumm (0.11-0.7); Absolute Neutrophil Count 4.61 k/cumm (1.2-6.7); Basophils % 0.3; Eosinophils % 0.3; HCT 33.4 % (36.0-46.0); HGB 10.7 g/dL (12.0-15.5); Immature Grans % 0.3; Mean Corpuscular Hemoglobin 29.7 pg (27.0-33.0); Mean Corpuscular Volume 92.8 fL (80-95); Mean Platelet Volume 9.8 fL (8.0-11.0); Neutrophils % 77.1; Platelet Count 222 x1000/uL (130-400); RBC Distribution Width 13.3 % (11.7-14.6); White Blood Cell Count 5.99 k/cumm (4.4-10.8)
[2019-01-31 07:12] LABS: ALT 13 U/L (14-59); AST 10 U/L (15-37); Albumin 2.8 g/dL (3.4-5.0); Alkaline Phosphatase 41 U/L (46-116); Anion Gap 8.2 mmol/L (3-11); BUN 9 mg/dL (7-18); Bilirubin, Total 0.5 mg/dL (0.2-1.0); CO2 22.8 mmol/L (21.0-32.0); CREATININE 0.61 mg/dL (0.55-1.02); Calcium 7.7 mg/dL (8.5-10.1); Chloride 110 mmol/L (98-107); Glucose 101 mg/dL (70-100); Potassium 3.5 mmol/L (3.5-5.1); Sodium 141 mmol/L (136-145); Total Protein 5.8 g/dL (6.4-8.2)
[2019-01-31] MEDS: Ondansetron 4 MG/2 ML VIAL IVP (09:15)
[2019-01-31] MEDS: Potassium Chloride 20 MEQ TABCR 40 MEQ PO (10:41)
[2019-01-31] MEDS: MAGNESIUM SULFATE 1 GM/100 ML BAG IVPB (10:43)
[2019-01-31] MEDS: Sucralfate 1 GM TAB PO ×3 (11:17→19:54)
--- NOTE | 2019-01-31 11:55 | PHARADMIT ---
Admission Pharmacy Clinical Review Abdominal pain, Hypotension Code Status Full Code Current Weight Wgt- 76 kg Renally Cleared and Narrow Therapeutic Index Meds CrCl~ 84.95 mL/min Meds-OK QTc Value / Action Taken NA BP Control, Fever BP-108/73 Tmax-37.6C Electrolytes reviewed Na- 141 K+3.5 Mag-1.7 DVT Prophylaxis DCD Lovenox Opiate Usage / Scheduled Bowel Regimen Ordered No No Plt/SCr for Heparin / Enoxaparin Plts-222 SCr-0.61 INR for Warfarin NA H/H stable, WBC/Bands H&H- 10.7/33.4 WBC-5.99 Antibiotic appropriateness none Cultures and Sensitivities Blood-pending Surgical ABX d/c within 24 hr NA DM control / Insulin Dosing BG- 101 Heart Failure (Check EF%) (KEATON's, B-Block, Diuretics) none IV to PO Switch No Home Meds Reviewed Yes Home Meds Not Ordered KEFLEX,IBUPROFEN, Comments
--- NOTE | 2019-01-31 12:02 | W.PM.PROGNOT ---
Date of Service Date of service: 01/31/19 Time of Service: 12:02 Assessment and Plan Assessment and plan (1) Enteritis: Start date: 01/31/19 Start time: 12:16 Status: Acute Assessment and plan: Pain is improving but still there. Pain to midepigastric area. Pain worse with palpation. Slightly distended. Continue PPI, add carafate Clear diet. IVF for hydration Surgery Consult (2) Dehydration, moderate: Start date: 01/31/19 Start time: 12:17 Status: Acute Assessment and plan: Prior to admission having tea colored urine, still appearing dry. Continue IVF, Monitor I/O (3) Hypotension: Start date: 01/31/19 Start time: 12:18 Status: Acute Assessment and plan: Likely secondary to slight anemia from a month long menses and dehydration. Continue to Hydrate. Followed by [facility] as outpatient for menses. Will hold off consult at this time. (4) Low back pain: Start date: 01/31/19 Start time: 12:25 Status: Acute Assessment and plan: Severe Pain resulting in nsaid use. Seen by PCP. MRI ordered for tomorrow. Qualifiers: Chronicity: chronic Back pain laterality: left Sciatica presence: with sciatica Sciatica laterality: sciatica of left side Qualified Code(s): M54.42 - Lumbago with sciatica, left side; G89.29 - Other chronic pain (5) Irregular menses: Start date: 01/31/19 Start time: 12:42 Status: Acute Assessment and plan: Endorses a month long menses. Ending just days ago. Seen by [facility] as an outpatient. Monitor H/H. See above. Above case was discussed with Dr. Garcia who is in agreement. Subjective Subjective Patient reports: no new complaints Interval history since last seen: Pain improving. Tolerating clears. After speaking with surgery at this time does not feel abd u/s needed. Likely gastritis/enteritis from NSAID use for severe back pain. MRI ordered for tomorrow for back. HH likely decreased after having menses for a month and diluted from hydration. Will order stool cultures. Denies CP, SOB, N/V/D. Appears to be dry still, continue IVF overnight. Exam Narrative Exam Narrative: Const: Young healthy appearing female sitting up in bed, cooperative. AAoX3 Eyes: PERRLA, EOMI, Neck: no lymphedema, goiter or jvd Resp: Even unlabored respiration. LSCTAB Cardio: regular rate and rhythm. No murmur appreciated. GI: pain to midepigastric area with palpation. Soft, slightly distended. SKin: intact, no clubbing, edema, or cyanosis. Objective Objective Clinical Data: Abnormal lab results 01/30/19 01/30/19 01/30/19 Range/Units 11:00 13:40 20:42 RBC (4.00-5.20) m/cumm Hgb (12.0-15.5) g/dL Hct (36.0-46.0) % Absolute Lymphocytes (1.2-3.4) k/cumm Potassium 3.4 L (3.5-5.1) mmol/L Chloride 110 H (98-107) mmol/L Anion Gap 11.3 H (3-11) mmol/L BUN 19 H (7-18) mg/dL Glucose 115 H (70-100) mg/dL Calcium 7.6 L (8.5-10.1) mg/dL Magnesium (1.8-2.4) mg/dL AST 12 L (15-37) U/L ALT (14-59) U/L Alkaline Phosphatase 45 L (46-116) U/L Total Protein (6.4-8.2) g/dL Albumin 3.1 L (3.4-5.0) g/dL Lipase 53 L (73-393) U/L Urine Ketones Trace H (Negative) mg/dL Urine Blood Trace-lysed H (Negative) Urine RBC 3-5 H (0-2) 01/30/19 01/30/19 01/31/19 Range/Units 20:42 20:42 06:20 RBC 3.97 L (4.00-5.20) m/cumm Hgb 11.9 L (12.0-15.5) g/dL Hct (36.0-46.0) % Absolute Lymphocytes 0.44 L (1.2-3.4) k/cumm Potassium (3.5-5.1) mmol/L Chloride 110 H (98-107) mmol/L Anion Gap (3-11) mmol/L BUN (7-18) mg/dL Glucose 101 H (70-100) mg/dL Calcium 7.7 L (8.5-10.1) mg/dL Magnesium 1.7 L (1.8-2.4) mg/dL AST 10 L (15-37) U/L ALT 13 L (14-59) U/L Alkaline Phosphatase 41 L (46-116) U/L Total Protein 5.8 L (6.4-8.2) g/dL Albumin 2.8 L (3.4-5.0) g/dL Lipase (73-393) U/L Urine Ketones (Negative) mg/dL Urine Blood (Negative) Urine RBC (0-2) 01/31/19 Range/Units 06:20 RBC 3.60 L (4.00-5.20) m/cumm Hgb 10.7 L (12.0-15.5) g/dL Hct 33.4 L (36.0-46.0) % Absolute Lymphocytes 0.78 L (1.2-3.4) k/cumm Potassium (3.5-5.1) mmol/L Chloride (98-107) mmol/L Anion Gap (3-11) mmol/L BUN (7-18) mg/dL Glucose (70-100) mg/dL Calcium (8.5-10.1) mg/dL Magnesium (1.8-2.4) mg/dL AST (15-37) U/L ALT (14-59) U/L Alkaline Phosphatase (46-116) U/L Total Protein (6.4-8.2) g/dL Albumin (3.4-5.0) g/dL Lipase (73-393) U/L Urine Ketones (Negative) mg/dL Urine Blood (Negative) Urine RBC (0-2) Vital Signs Temperature 37.1 C 01/31/19 08:34 Temperature Source Tympanic 01/31/19 08:34 Pulse 83 01/31/19 08:34 Pulse 84 01/31/19 07:01 Respiratory Rate 16 01/31/19 08:34 Respiratory Effort 01/31/19 06:31 Respiratory Depth Normal 01/31/19 06:31 Respiratory Pattern Normal 01/31/19 06:31 Blood Pressure 108/73 01/31/19 08:34 Blood Pressure Mean 84 01/31/19 07:01 Blood Pressure Position Supine 01/30/19 22:06 Pulse Oximetry 100 01/31/19 08:34 Oxygen Delivery Method Room Air 01/31/19 08:34 Oxygen Flow Rate 0 01/31/19 08:34 Pain Level 3 01/31/19 08:34 Comment 01/30/19 10:53 Intake & Output 01/30/19 01/31/19 01/31/19 23:59 11:59 23:59 Intake Total 3585.0 / 3636.0 2290.0 / 2290.0 Output Total 300 / 300 1500 / 1500 Balance 3285.0 / 3336.0 790.0 / 790.0 Weight 75.4 kg 76 kg Intake: IV 3345.0 / 3396.0 2040.0 / 2040.0 Oral 240 / 240 250 / 250 Output: Urine 300 / 300 1500 / 1500 Other: Urine Color Light Yazmin Yellow Urine Appearance Clear Clear Urine Odor None None Comment urine contained a moderate sized clot which pt reported was shed from her vagina. urine is mixed with stool Stool Occult Blood Negative Stool Size Small Stool Characteristics Formed Brown Voiding Methods Bedside Commode Toilet Laboratory Results WBC 5.99 k/cumm (4.4-10.8) 01/31/19 06:20 RBC 3.60 m/cumm (4.00-5.20) L 01/31/19 06:20 Hgb 10.7 g/dL (12.0-15.5) L 01/31/19 06:20 Hct 33.4 % (36.0-46.0) L 01/31/19 06:20 MCV 92.8 fL (80-95) 01/31/19 06:20 MCH 29.7 pg (27.0-33.0) 01/31/19 06:20 MCHC 32.0 g/dL (32.0-36.0) 01/31/19 06:20 RDW 13.3 % (11.7-14.6) 01/31/19 06:20 Plt Count 222 x1000/uL (130-400) 01/31/19 06:20 MPV 9.8 fL (8.0-11.0) 01/31/19 06:20 Immature Gran % 0.3 01/31/19 06:20 Neutrophils % 77.1 01/31/19 06:20 Lymphocytes % 13.0 01/31/19 06:20 Monocytes % 9.0 01/31/19 06:20 Eosinophils % 0.3 01/31/19 06:20 Basophils % 0.3 01/31/19 06:20 Absolute Neutrophils 4.61 k/cumm (1.2-6.7) 01/31/19 06:20 Absolute Lymphocytes 0.78 k/cumm (1.2-3.4) L 01/31/19 06:20 Absolute Monocytes 0.54 k/cumm (0.11-0.7) 01/31/19 06:20 Absolute Eosinophils 0.02 k/cumm (0.0-0.7) 01/31/19 06:20 Absolute Basophils 0.02 k/cumm (0.0-0.2) 01/31/19 06:20 Sodium 141 mmol/L (136-145) 01/31/19 06:20 Potassium 3.5 mmol/L (3.5-5.1) 01/31/19 06:20 Chloride 110 mmol/L (98-107) H 01/31/19 06:20 Carbon Dioxide 22.8 mmol/L (21.0-32.0) 01/31/19 06:20 Anion Gap 8.2 mmol/L (3-11) 01/31/19 06:20 BUN 9 mg/dL (7-18) 01/31/19 06:20 Creatinine 0.61 mg/dL (0.55-1.02) 01/31/19 06:20 Estimated GFR/1.73 m2 >= 60.00 (mL/min/1.73m2) 01/31/19 06:20 Glucose 101 mg/dL (70-100) H 01/31/19 06:20 Lactate 0.8 mmol/L (0.6-1.4) 01/30/19 20:42 Calcium 7.7 mg/dL (8.5-10.1) L 01/31/19 06:20 Magnesium 1.7 mg/dL (1.8-2.4) L 01/30/19 20:42 Total Bilirubin 0.5 mg/dL (0.2-1.0) 01/31/19 06:20 AST 10 U/L (15-37) L 01/31/19 06:20 ALT 13 U/L (14-59) L 01/31/19 06:20 Alkaline Phosphatase 41 U/L (46-116) L 01/31/19 06:20 Total Protein 5.8 g/dL (6.4-8.2) L 01/31/19 06:20 Albumin 2.8 g/dL (3.4-5.0) L 01/31/19 06:20 Lipase 53 U/L (73-393) L 01/30/19 11:00 Procalcitonin 0.1 ng/mL 01/30/19 20:42 Urine Color Yellow (Yellow) 01/30/19 13:40 Urine Clarity Clear (Clear) 01/30/19 13:40 Urine pH 7.5 (5-8) 01/30/19 13:40 Ur Specific [place] 1.020 (1.005-1.025) 01/30/19 13:40 Urine Protein Negative mg/dL (Negative) 01/30/19 13:40 Urine Ketones Trace mg/dL (Negative) H 01/30/19 13:40 Urine Blood Trace-lysed (Negative) H 01/30/19 13:40 Urine Nitrite Negative (Negative) 01/30/19 13:40 Urine Bilirubin Negative (Negative) 01/30/19 13:40 Urine Urobilinogen 0.2 EU/dL (Up TO 0.2) 01/30/19 13:40 Ur Leukocyte Esterase Negative (Negative) 01/30/19 13:40 Urine RBC 3-5 (0-2) H 01/30/19 13:40 Urine WBC 0-2 HPF (0-5) 01/30/19 13:40 Ur Epithelial Cells Moderate HPF (Negative) 01/30/19 13:40 Urine Crystals Negative HPF (Negative) 01/30/19 13:40 Urine Bacteria Rare HPF (Negative) 01/30/19 13:40 Urine Casts Negative LPF (Negative) 01/30/19 13:40 Urine Mucus Trace (Negative) 01/30/19 13:40 Urine Other Rare renal (Negative) 01/30/19 13:40 Ur Culture Indicated? No 01/30/19 13:40 Urine Glucose Negative mg/dL (Negative) 01/30/19 13:40 Patient ABO/Rh O Positive 01/30/19 20:42 Antibody Screen Negative 01/30/19 20:42
[2019-01-31 12:18] LABS: HCT 34.6 % (36.0-46.0); HGB 11.2 g/dL (12.0-15.5)
--- NOTE | 2019-01-31 15:27 | W.PM.PROGNOT ---
Date of Service Date of service: 01/31/19 Time of Service: 15:28 Assessment and Plan Assessment and plan (1) Enteritis: Status: Acute Assessment and plan: I think this stems from a bad virus and dehydration However, she has been taking lg amounts of NSAID's for chronic back pain. I advised her to use carafate when she needs NSAID's. I do think she needs a MRI of her low back for diagnosis. continue supportive care. (2) Anemia: Status: Acute Qualifiers: Anemia type: unspecified type Qualified Code(s): D64.9 - Anemia, unspecified (3) Dehydration, moderate: Status: Acute Subjective Subjective Interval history since last seen: pt is tolerating po's. The nausea has passed. She had a lg BM. There was no blood- BRB or dark blood. She has not thrown up any blood. She still has generalized mild abdominal pain that feels more sore- possibly from retching. No fever/chills. No localized RUQ or RLQ pain. She is still having vaginal bleeding. Her urine is still quite yellow. She doesn't feel dizzy or light headed. Just very tired. Her mucous membranes are moist today. Exam Const General: cooperative, healthy appearing, comfortable, no acute distress, well developed and well groomed Nutritional Appearance: average body habitus and well nourished Orientation: alert, awake and oriented x3 HENMT Head: normal to inspection, normocephalic and atraumatic Ears: hearing grossly normal bilaterally and external ears normal General nose exam: external nose normal Face and sinus: normal facial exam and sinuses nontender Mouth: oral mucosae normal, lip normal, tongue normal and moist mucous membranes Teeth and gingiva: dentition normal Eyes General: appearance normal, both eyes and all related structures Conjunctivae: conjunctivae normal Sclera: sclerae normal Pupils: PERRL Neck Neck: normal visual inspection and full ROM Chest Chest: normal inspection of the chest Resp Effort & Inspection: normal respiratory effort, able to speak in complete sentences, no cough, no nasal flaring, not tachypneic and no use of accessory muscles Auscultation: clear to auscultation bilaterally, no rales, no rhonchi and no wheezes Cardio Jugular venous pressure: no JVD Rate: regular rate Rhythm: regular rhythm GI Inspection: normal to inspection, no edema and non-distended Palpation: soft, no masses, nontender and No ascites Auscultation: normal bowel sounds Other: minimal tenderness in periumilical region. no R/R/G Skin General skin exam: no rashes or lesions noted Trauma: no lacerations or abrasions Neuro General: alert, oriented x3, oriented, gait normal, moves all extremities, no focal motor deficits and CN's II-XI intact bilaterally Cognition: normal cognition Speech: speech normal Gait: normal gait Motor: muscle tone normal throughout Other: chronic low back pain and sciatica- mild today. this has been chronic in nature. Extrem General: normal to inspection, full ROM and no clubbing, cyanosis or edema Psych Appearance: grossly normal and well kempt Mental Status: mental status grossly normal Speech and Movement: speech and movement normal Affect: normal affect Objective Objective Clinical Data: Abnormal lab results 01/30/19 01/30/19 01/30/19 Range/Units 20:42 20:42 20:42 RBC 3.97 L (4.00-5.20) m/cumm Hgb 11.9 L (12.0-15.5) g/dL Hct (36.0-46.0) % Absolute Lymphocytes 0.44 L (1.2-3.4) k/cumm Potassium 3.4 L (3.5-5.1) mmol/L Chloride 110 H (98-107) mmol/L Glucose (70-100) mg/dL Calcium 7.6 L (8.5-10.1) mg/dL Magnesium 1.7 L (1.8-2.4) mg/dL AST 12 L (15-37) U/L ALT (14-59) U/L Alkaline Phosphatase 45 L (46-116) U/L Total Protein (6.4-8.2) g/dL Albumin 3.1 L (3.4-5.0) g/dL 01/31/19 01/31/19 01/31/19 Range/Units 06:20 06:20 12:00 RBC 3.60 L (4.00-5.20) m/cumm Hgb 10.7 L 11.2 L (12.0-15.5) g/dL Hct 33.4 L 34.6 L (36.0-46.0) % Absolute Lymphocytes 0.78 L (1.2-3.4) k/cumm Potassium (3.5-5.1) mmol/L Chloride 110 H (98-107) mmol/L Glucose 101 H (70-100) mg/dL Calcium 7.7 L (8.5-10.1) mg/dL Magnesium (1.8-2.4) mg/dL AST 10 L (15-37) U/L ALT 13 L (14-59) U/L Alkaline Phosphatase 41 L (46-116) U/L Total Protein 5.8 L (6.4-8.2) g/dL Albumin 2.8 L (3.4-5.0) g/dL Vital Signs Temperature 37.1 C 01/31/19 08:34 Temperature Source Tympanic 01/31/19 08:34 Pulse 83 01/31/19 08:34 Pulse 84 01/31/19 07:01 Respiratory Rate 16 01/31/19 08:34 Respiratory Effort 01/31/19 06:31 Respiratory Depth Normal 01/31/19 06:31 Respiratory Pattern Normal 01/31/19 06:31 Blood Pressure 108/73 01/31/19 08:34 Blood Pressure Mean 84 01/31/19 07:01 Blood Pressure Position Supine 01/30/19 22:06 Pulse Oximetry 100 01/31/19 08:34 Oxygen Delivery Method Room Air 01/31/19 08:34 Oxygen Flow Rate 0 01/31/19 08:34 Pain Level 3 01/31/19 08:34 Comment 01/30/19 10:53 Intake & Output 01/30/19 01/31/19 01/31/19 23:59 11:59 23:59 Intake Total 3585.0 / 3636.0 2576.667 / 2826.667 250 / 2826.667 Output Total 300 / 300 2300 / 2300 Balance 3285.0 / 3336.0 276.667 / 526.667 250 / 526.667 Weight 75.4 kg 76 kg Intake: IV 3345.0 / 3396.0 2326.667 / 2326.667 Oral 240 / 240 250 / 500 250 / 500 Output: Urine 300 / 300 2300 / 2300 Other: Urine Color Light Yazmin Yellow Urine Appearance Clear Clear Urine Odor None None Comment urine contained a moderate sized clot which pt reported was shed from her vagina. urine is mixed with stool Stool Occult Blood Negative Stool Size Small Stool Characteristics Formed Brown Voiding Methods Bedside Commode Toilet Laboratory Results WBC 5.99 k/cumm (4.4-10.8) 01/31/19 06:20 RBC 3.60 m/cumm (4.00-5.20) L 01/31/19 06:20 Hgb 11.2 g/dL (12.0-15.5) L 01/31/19 12:00 Hct 34.6 % (36.0-46.0) L 01/31/19 12:00 MCV 92.8 fL (80-95) 01/31/19 06:20 MCH 29.7 pg (27.0-33.0) 01/31/19 06:20 MCHC 32.0 g/dL (32.0-36.0) 01/31/19 06:20 RDW 13.3 % (11.7-14.6) 01/31/19 06:20 Plt Count 222 x1000/uL (130-400) 01/31/19 06:20 MPV 9.8 fL (8.0-11.0) 01/31/19 06:20 Immature Gran % 0.3 01/31/19 06:20 Neutrophils % 77.1 01/31/19 06:20 Lymphocytes % 13.0 01/31/19 06:20 Monocytes % 9.0 01/31/19 06:20 Eosinophils % 0.3 01/31/19 06:20 Basophils % 0.3 01/31/19 06:20 Absolute Neutrophils 4.61 k/cumm (1.2-6.7) 01/31/19 06:20 Absolute Lymphocytes 0.78 k/cumm (1.2-3.4) L 01/31/19 06:20 Absolute Monocytes 0.54 k/cumm (0.11-0.7) 01/31/19 06:20 Absolute Eosinophils 0.02 k/cumm (0.0-0.7) 01/31/19 06:20 Absolute Basophils 0.02 k/cumm (0.0-0.2) 01/31/19 06:20 Sodium 141 mmol/L (136-145) 01/31/19 06:20 Potassium 3.5 mmol/L (3.5-5.1) 01/31/19 06:20 Chloride 110 mmol/L (98-107) H 01/31/19 06:20 Carbon Dioxide 22.8 mmol/L (21.0-32.0) 01/31/19 06:20 Anion Gap 8.2 mmol/L (3-11) 01/31/19 06:20 BUN 9 mg/dL (7-18) 01/31/19 06:20 Creatinine 0.61 mg/dL (0.55-1.02) 01/31/19 06:20 Estimated GFR/1.73 m2 >= 60.00 (mL/min/1.73m2) 01/31/19 06:20 Glucose 101 mg/dL (70-100) H 01/31/19 06:20 Lactate 0.8 mmol/L (0.6-1.4) 01/30/19 20:42 Calcium 7.7 mg/dL (8.5-10.1) L 01/31/19 06:20 Magnesium 1.7 mg/dL (1.8-2.4) L 01/30/19 20:42 Total Bilirubin 0.5 mg/dL (0.2-1.0) 01/31/19 06:20 AST 10 U/L (15-37) L 01/31/19 06:20 ALT 13 U/L (14-59) L 01/31/19 06:20 Alkaline Phosphatase 41 U/L (46-116) L 01/31/19 06:20 Total Protein 5.8 g/dL (6.4-8.2) L 01/31/19 06:20 Albumin 2.8 g/dL (3.4-5.0) L 01/31/19 06:20 Lipase 53 U/L (73-393) L 01/30/19 11:00 Procalcitonin 0.1 ng/mL 01/30/19 20:42 Urine Color Yellow (Yellow) 01/30/19 13:40 Urine Clarity Clear (Clear) 01/30/19 13:40 Urine pH 7.5 (5-8) 01/30/19 13:40 Ur Specific [place] 1.020 (1.005-1.025) 01/30/19 13:40 Urine Protein Negative mg/dL (Negative) 01/30/19 13:40 Urine Ketones Trace mg/dL (Negative) H 01/30/19 13:40 Urine Blood Trace-lysed (Negative) H 01/30/19 13:40 Urine Nitrite Negative (Negative) 01/30/19 13:40 Urine Bilirubin Negative (Negative) 01/30/19 13:40 Urine Urobilinogen 0.2 EU/dL (Up TO 0.2) 01/30/19 13:40 Ur Leukocyte Esterase Negative (Negative) 01/30/19 13:40 Urine RBC 3-5 (0-2) H 01/30/19 13:40 Urine WBC 0-2 HPF (0-5) 01/30/19 13:40 Ur Epithelial Cells Moderate HPF (Negative) 01/30/19 13:40 Urine Crystals Negative HPF (Negative) 01/30/19 13:40 Urine Bacteria Rare HPF (Negative) 01/30/19 13:40 Urine Casts Negative LPF (Negative) 01/30/19 13:40 Urine Mucus Trace (Negative) 01/30/19 13:40 Urine Other Rare renal (Negative) 01/30/19 13:40 Ur Culture Indicated? No 01/30/19 13:40 Urine Glucose Negative mg/dL (Negative) 01/30/19 13:40 Patient ABO/Rh O Positive 01/30/19 20:42 Antibody Screen Negative 01/30/19 20:42
--- NOTE | 2019-01-31 19:29 | INITIAL_ITS ---
Care Management Initial Assess REASON FOR HOSPITALIZATION:: Abdominal Pain, Hypotension PAST MEDICAL HISTORY/PAST SURGICAL HISTORY:: Chronic back pain PREVIOUS FUNCTIONAL STATUS/SOCIAL/FAMILY SUPPORTS:: Independent at baseline. Lives with her , blake, at their home in [place] CURRENT FUNCTIONAL STATUS:: Lying in bed and is receiving IV pain medication and fluids. ADVANCE DIRECTIVES:: None on file Has patient been provided with information about the portal?: Yes Did the patient sign up for the portal?: No CODE STATUS:: Full Code INSURANCE COVERAGE / FINANCIAL ISSUES:: [employer] [facility] Only CURRENT HOME/COMMUNITY SERVICES/EQUIPMENT:: None at this time PRIMARY CARE PHYSICIAN:: Devon Trinh - Monique Bruno NP POTENTIAL DISCHARGE NEEDS:: None identified at this time PATIENT/FAMILY EDUCATION NEEDS:: Discharge instructions ANTICIPATED BARRIERS TO DISCHARGE:: None TRANSPORTATION:: Family PLAN:: Anuradha will return home when medically cleared for discharge. will transport.
[2019-01-31] MEDS: Lactated Ringers 1,000 ML 100 ML IV (19:54)
[2019-01-31] MEDS: Pantoprazole 40 MG VIAL IVP (22:03)
[2019-02-01 07:17] VITALS: BP 118/79; PULSE 73; RESP 17; TEMP 37.4; O2SAT 98
[2019-02-01 07:30] LABS: Absolute Basophil Count 0.02 k/cumm (0.0-0.2); Absolute Eosinophil Count 0.08 k/cumm (0.0-0.7); Absolute Monocyte Count 0.54 k/cumm (0.11-0.7); Absolute Neutrophil Count 3.77 k/cumm (1.2-6.7); Basophils % 0.4; Eosinophils % 1.4; HCT 35.8 % (36.0-46.0); HGB 11.3 g/dL (12.0-15.5); Lymphocytes % 21.4; Mean Corp. HGB Concentration 31.6 g/dL (32.0-36.0); Mean Corpuscular Hemoglobin 29.7 pg (27.0-33.0); Mean Platelet Volume 9.9 fL (8.0-11.0); Monocytes % 9.6; Neutrophils % 67.2; Platelet Count 236 x1000/uL (130-400); RBC 3.81 m/cumm (4.00-5.20); RBC Distribution Width 13.3 % (11.7-14.6); White Blood Cell Count 5.61 k/cumm (4.4-10.8)
[2019-02-01 08:01] LABS: ALT 14 U/L (14-59); AST 14 U/L (15-37); Alkaline Phosphatase 43 U/L (46-116); Anion Gap 7.8 mmol/L (3-11); BUN 5 mg/dL (7-18); Bilirubin, Total 0.3 mg/dL (0.2-1.0); CO2 26.2 mmol/L (21.0-32.0); CREATININE 0.71 mg/dL (0.55-1.02); Calcium 8.6 mg/dL (8.5-10.1); Chloride 112 mmol/L (98-107); Glucose 90 mg/dL (70-100); Potassium 3.8 mmol/L (3.5-5.1); Sodium 146 mmol/L (136-145); Total Protein 6.4 g/dL (6.4-8.2)
[2019-02-01] MEDS: Sucralfate 1 GM TAB PO ×2 (08:02→11:39)
--- NOTE | 2019-02-01 11:07 | PGE_ITS ---
Date of Service Date of service: 02/01/19 Time of Service: 11:07 Assessment and Plan Assessment and plan (1) Enteritis: Status: Acute (2) Dehydration, moderate: Status: Acute (3) Irregular menses: Status: Acute (4) Low back pain: Status: Acute Assessment and plan: MRI today than d/c home Rx PPI and carafate. take if using nsaids's for pain ok to return to work on friday Pt saw photo checker. They want to wait and see if the cycle regulates itself. Pt does not tolerate hormonal therapy well. F/u prn Qualifiers: Chronicity: chronic Back pain laterality: left Sciatica presence: with sciatica Sciatica laterality: sciatica of left side Qualified Code(s): M54.42 - Lumbago with sciatica, left side; G89.29 - Other chronic pain Subjective Subjective Interval history since last seen: Pt is doing well. no headaches. No CP or SOB. no productive cough. no dysuria. no leg pain or swelling. mild soreness in abdomen- but i think this is just from retching. Hgb hs been stable otherwise. She has had bm and no blood. she is tolerating a regular and no pain or nausea. Exam GI Inspection: normal to inspection Palpation: soft Other: minimal diffuse tenderness- but this is more from abdom musculature rather than internal organ pain. Objective Objective Clinical Data: Abnormal lab results 01/31/19 02/01/19 02/01/19 Range/Units 12:00 07:00 07:00 RBC 3.81 L (4.00-5.20) m/cumm Hgb 11.2 L 11.3 L (12.0-15.5) g/dL Hct 34.6 L 35.8 L (36.0-46.0) % MCHC 31.6 L (32.0-36.0) g/dL Sodium 146 H (136-145) mmol/L Chloride 112 H (98-107) mmol/L BUN 5 L (7-18) mg/dL AST 14 L (15-37) U/L Alkaline Phosphatase 43 L (46-116) U/L Albumin 3.0 L (3.4-5.0) g/dL Vital Signs Temperature 37.4 C 02/01/19 07:17 Temperature Source Tympanic 02/01/19 07:17 Pulse 73 02/01/19 07:17 Pulse Rhythm Regular 02/01/19 08:56 Pulse 84 01/31/19 07:01 Respiratory Rate 17 02/01/19 07:17 Respiratory Effort 02/01/19 08:56 Respiratory Depth Normal 02/01/19 01:50 Respiratory Pattern Normal 01/31/19 06:31 Blood Pressure 118/79 02/01/19 07:17 Blood Pressure Mean 84 01/31/19 07:01 Blood Pressure Position Supine 01/30/19 22:06 Pulse Oximetry 98 02/01/19 07:17 Oxygen Delivery Method Room Air 02/01/19 07:17 Oxygen Flow Rate 0 02/01/19 07:17 Pain Level 1 02/01/19 07:17 Comment 01/31/19 16:05 Intake & Output 01/31/19 01/31/19 02/01/19 11:59 23:59 11:59 Intake Total 2576.667 / 3540.000 963.333 / 3540.000 630 / 630 Output Total 2300 / 2300 Balance 276.667 / 1240.000 963.333 / 1240.000 630 / 630 Weight 76 kg 76 kg Intake: IV 2326.667 / 3040.000 713.333 / 3040.000 380 / 380 Oral 250 / 500 250 / 500 250 / 250 Output: Urine 2300 / 2300 Other: Urine Color Yellow Urine Appearance Clear Urine Odor None Comment urine is mixed with stool Urine not seen, pt voiding independently. No issues reported. Stool Occult Blood Negative Stool Size Small Moderate Stool Characteristics Formed Brown Brown Voiding Methods Toilet Toilet Laboratory Results WBC 5.61 k/cumm (4.4-10.8) 02/01/19 07:00 RBC 3.81 m/cumm (4.00-5.20) L 02/01/19 07:00 Hgb 11.3 g/dL (12.0-15.5) L 02/01/19 07:00 Hct 35.8 % (36.0-46.0) L 02/01/19 07:00 MCV 94.0 fL (80-95) 02/01/19 07:00 MCH 29.7 pg (27.0-33.0) 02/01/19 07:00 MCHC 31.6 g/dL (32.0-36.0) L 02/01/19 07:00 RDW 13.3 % (11.7-14.6) 02/01/19 07:00 Plt Count 236 x1000/uL (130-400) 02/01/19 07:00 MPV 9.9 fL (8.0-11.0) 02/01/19 07:00 Immature Gran % 0.0 02/01/19 07:00 Neutrophils % 67.2 02/01/19 07:00 Lymphocytes % 21.4 02/01/19 07:00 Monocytes % 9.6 02/01/19 07:00 Eosinophils % 1.4 02/01/19 07:00 Basophils % 0.4 02/01/19 07:00 Absolute Neutrophils 3.77 k/cumm (1.2-6.7) 02/01/19 07:00 Absolute Lymphocytes 1.20 k/cumm (1.2-3.4) 02/01/19 07:00 Absolute Monocytes 0.54 k/cumm (0.11-0.7) 02/01/19 07:00 Absolute Eosinophils 0.08 k/cumm (0.0-0.7) 02/01/19 07:00 Absolute Basophils 0.02 k/cumm (0.0-0.2) 02/01/19 07:00 Sodium 146 mmol/L (136-145) H 02/01/19 07:00 Sodium Cancelled 02/01/19 07:00 Potassium 3.8 mmol/L (3.5-5.1) 02/01/19 07:00 Potassium Cancelled 02/01/19 07:00 Chloride 112 mmol/L (98-107) H 02/01/19 07:00 Chloride Cancelled 02/01/19 07:00 Carbon Dioxide 26.2 mmol/L (21.0-32.0) 02/01/19 07:00 Carbon Dioxide Cancelled 02/01/19 07:00 Anion Gap 7.8 mmol/L (3-11) 02/01/19 07:00 Anion Gap Cancelled 02/01/19 07:00 BUN 5 mg/dL (7-18) L 02/01/19 07:00 BUN Cancelled 02/01/19 07:00 Creatinine 0.71 mg/dL (0.55-1.02) 02/01/19 07:00 Creatinine Cancelled 02/01/19 07:00 Estimated GFR/1.73 m2 >= 60.00 (mL/min/1.73m2) 02/01/19 07:00 Estimated GFR/1.73 m2 Cancelled 02/01/19 07:00 Glucose 90 mg/dL (70-100) 02/01/19 07:00 Glucose Cancelled 02/01/19 07:00 Lactate 0.8 mmol/L (0.6-1.4) 01/30/19 20:42 Calcium 8.6 mg/dL (8.5-10.1) 02/01/19 07:00 Calcium Cancelled 02/01/19 07:00 Magnesium 2.0 mg/dL (1.8-2.4) 02/01/19 07:00 Total Bilirubin 0.3 mg/dL (0.2-1.0) 02/01/19 07:00 AST 14 U/L (15-37) L 02/01/19 07:00 ALT 14 U/L (14-59) 02/01/19 07:00 Alkaline Phosphatase 43 U/L (46-116) L 02/01/19 07:00 Total Protein 6.4 g/dL (6.4-8.2) 02/01/19 07:00 Albumin 3.0 g/dL (3.4-5.0) L 02/01/19 07:00 Lipase 53 U/L (73-393) L 01/30/19 11:00 Procalcitonin 0.1 ng/mL 01/30/19 20:42 Urine Color Yellow (Yellow) 01/30/19 13:40 Urine Clarity Clear (Clear) 01/30/19 13:40 Urine pH 7.5 (5-8) 01/30/19 13:40 Ur Specific [place] 1.020 (1.005-1.025) 01/30/19 13:40 Urine Protein Negative mg/dL (Negative) 01/30/19 13:40 Urine Ketones Trace mg/dL (Negative) H 01/30/19 13:40 Urine Blood Trace-lysed (Negative) H 01/30/19 13:40 Urine Nitrite Negative (Negative) 01/30/19 13:40 Urine Bilirubin Negative (Negative) 01/30/19 13:40 Urine Urobilinogen 0.2 EU/dL (Up TO 0.2) 01/30/19 13:40 Ur Leukocyte Esterase Negative (Negative) 01/30/19 13:40 Urine RBC 3-5 (0-2) H 01/30/19 13:40 Urine WBC 0-2 HPF (0-5) 01/30/19 13:40 Ur Epithelial Cells Moderate HPF (Negative) 01/30/19 13:40 Urine Crystals Negative HPF (Negative) 01/30/19 13:40 Urine Bacteria Rare HPF (Negative) 01/30/19 13:40 Urine Casts Negative LPF (Negative) 01/30/19 13:40 Urine Mucus Trace (Negative) 01/30/19 13:40 Urine Other Rare renal (Negative) 01/30/19 13:40 Ur Culture Indicated? No 01/30/19 13:40 Urine Glucose Negative mg/dL (Negative) 01/30/19 13:40 Patient ABO/Rh O Positive 01/30/19 20:42 Antibody Screen Negative 01/30/19 20:42
--- NOTE | 2019-02-01 11:42 | W.PM.DS.N ---
DS: Diagnosis Discharge Diagnosis (1) Enteritis: Start date: 02/01/19 Start time: 11:42 Status: Acute Asessment and Plan: Likely NSAID induced due to back pain. Started on carafate and PPI, will continue. Tolerating soft diet. Avoid NSAIDs. D/C today (2) Dehydration, moderate: Start date: 02/01/19 Start time: 11:43 Status: Acute Asessment and Plan: Resovled. (3) Irregular menses: Start date: 02/01/19 Start time: 11:44 Status: Acute Asessment and Plan: Likely cause of anemia. Being followed by gynocology. (4) Low back pain: Start date: 02/01/19 Start time: 11:44 Status: Acute Asessment and Plan: Reason for NSAID use. Will obtain MRI, have patient follow up with PCP for results. Likely sciatic by nature. If flared up consider steroid taper and CAMILO 2 inhibitor which tends to be less abrasive to the gut. Also continue PPI and carafate. Discharge Plan Disposition Patient Disposition: HOME Condition: Serious Discharge Details Chief Complaint: Abd Prob Clinical Impression: Nausea & vomiting, Acute hypotension, RUQ abdominal tenderness Reason For Visit: ABDOMINAL PAIN, HYPOTENSION Admit Date/Time: 01/30/19 20:03 Admit Provider: Cedrick Mireles Attending Provider: Cedrick Mireles Primary Care Provider: Monique Bruno ED Provider: Julián Pena Hospital Course Hospital Course: 38 y.o female with no significant PMH was admitted to [facility] after having severe RUQ pain with nausea and vomiting. Recently she was told to increase her Ibuprofen usage due to severe back pain and sciatic, she was not on a PPI at the time or H2 marion. She also had a month of menses which she was seen by Dr. Baez for. In the ED labs revealed no white count, slight anemia (likely due to lengthy menses), normal electrolytes. Imaging obtained identified findings that could represent enteritis. She was also found to be hypotensive and dry by appearance in the ED. She was admitted to [facility] and placed in ICU. Originally thought to have a GI bleed, causing her hypotension and anemia, therefore surgery was consulted. Stool was negative for blood. During the course of hospitalization she was hydrated with IVF, placed on prontonix and carafate. She was able to tolerate food without nausea or vomiting. Surgery felt this was an NSAID induced enteritis with a flu-like component. Today she looks well. She states she feels herself. Her only complaint at this time is her back. She will have an MRI with results to follow up with PCP. She will be discharged home on omeprazole and carafate. Follow up with PCP this week and Dr. Baez as needed. Her H/H stabilized she denies CP, SOB, N/V/D. Home Meds and New Rx's Prescriptions: New sucralfate 1 gram Tablet 1 g PO AC & HS Qty: 90 RF: 0 omeprazole 40 mg capsule,delayed release(DR/EC) 40 mg PO DAILY Qty: 30 RF: 0 tramadol [Ultram] 50 mg tablet 50 mg PO DAILY Qty: 10 RF: 0 Discontinued ibuprofen 200 mg tablet 200 mg PO Q6H PRNRF: 0 Discharge Instructions Instructions: Gastritis (GEN), Dehydration (GEN), Back Pain (GEN), Enteritis (GEN) Additional Instructions: Follow up with your PCP this week. Do not take ibuprofen. Take tramadol for pain as needed. Your PCP will go over the MRI results with you. You can return to work on 02/04 Stand Alone Forms: Nursing Discharge Form Referrals: Monique Bruno NP [Primary Care Provider] - 02/05/19 8:40 am Activity:: Activity as Tolerated Equipment/Supplies:: No Equipment Needed Diet:: As Tolerated Discharge Orders Discharge Orders: Discharge Order (Routine); Ordered 02/01/19 Ordered By: Latosha Quevedo DS: Summary Status at Discharge Functional status at discharge: independent ambulation Overall status at discharge: patient is back to baseline Mental Status: mental status grossly normal Speech and Movement: speech and movement normal Mood: congruent mood Affect: normal affect Exam Narrative Exam Narrative: Const: Young healthy appearing female sitting up in bed, cooperative. AAoX3 Eyes: PERRLA, EOMI, Neck: no lymphedema, goiter or jvd Resp: Even unlabored respiration. LSCTAB Cardio: regular rate and rhythm. No murmur appreciated. GI: pain resolved, BS x 4.Tolerting diet. SKin: intact, no clubbing, edema, or cyanosis. Psych Mental Status: mental status grossly normal Speech and Movement: speech and movement normal Mood: congruent mood Affect: normal affect DS: Data Vitals/I&O Vitals and I&O: Vital Signs Temperature 37.4 C 02/01/19 07:17 Temperature Source Tympanic 02/01/19 07:17 Pulse 73 02/01/19 07:17 Pulse Rhythm Regular 02/01/19 08:56 Pulse 84 01/31/19 07:01 Respiratory Rate 17 02/01/19 07:17 Respiratory Effort 02/01/19 08:56 Respiratory Depth Normal 02/01/19 01:50 Respiratory Pattern Normal 01/31/19 06:31 Blood Pressure 118/79 02/01/19 07:17 Blood Pressure Mean 84 01/31/19 07:01 Blood Pressure Position Supine 01/30/19 22:06 Pulse Oximetry 98 02/01/19 07:17 Oxygen Delivery Method Room Air 02/01/19 07:17 Oxygen Flow Rate 0 02/01/19 07:17 Pain Level 1 02/01/19 07:17 Comment 01/31/19 16:05 Intake & Output 01/31/19 01/31/19 02/01/19 11:59 23:59 11:59 Intake Total 2576.667 / 3540.000 963.333 / 3540.000 630 / 630 Output Total 2300 / 2300 Balance 276.667 / 1240.000 963.333 / 1240.000 630 / 630 Weight 76 kg 76 kg Intake: IV 2326.667 / 3040.000 713.333 / 3040.000 380 / 380 Oral 250 / 500 250 / 500 250 / 250 Output: Urine 2300 / 2300 Other: Urine Color Yellow Urine Appearance Clear Urine Odor None Comment urine is mixed with stool Urine not seen, pt voiding independently. No issues reported. Stool Occult Blood Negative Stool Size Small Moderate Stool Characteristics Formed Brown Brown Voiding Methods Toilet Toilet Data Completed and Pending Completed studies during hospitalization [Text1]: Exam(s) a CT:CT abdomen & pelvis w EXAM: CT ABDOMEN PELVIS W CLINICAL HISTORY: ruq ttp, low BP, nausea and vomiting TECHNIQUE: The exam was performed according to the usual protocol utilizing 100 cc's of Omnipaque 350. COMPARISON: No exams were available for comparison FINDINGS: No focal consolidating infiltrates are seen in the lung bases. The dome of the liver is not included. No hepatic mass is seen. The portal, superior mesenteric and splenic veins are patent. There are no stones seen within the gallbladder. No gallbladder wall thickening is present. There is no biliary ductal dilatation. There is decreased attenuation adjacent to the gallbladder in the liver. This may represent focal fatty infiltration. The pancreas and adrenal glands are unremarkable. Spleen is unremarkable except for a 9 mm cyst anteriorly. The kidneys, ureters and bladder are unremarkable. There are prominent venous structures within the adnexa bilaterally. The findings are more prominent on the left. This may represent pelvic congestion syndrome. The aorta is of normal caliber. There are mildly prominent lymph nodes in the mesentery in the left periaortic region. There is a small amount of free fluid in the pelvis. This may be physiologic in a patient of this age. No pneumoperitoneum is present. There does appear to be mild bowel wall thickening in the right lower quadrant. This appears to be within the distal small bowel/ileum. There is no evidence of bowel obstruction. The appendix is not visualized definitively. There is a moderate amount of stool seen throughout the colon. There are mild degenerative changes seen in the spine. Incidental note is made of a small fat containing umbilical hernia. IMPRESSION: 1. Mild bowel wall thickening in the distal small bowel/ileum. The findings are suspicious for enteritis. 2. No evidence of cholelithiasis or gallbladder wall thickening. No biliary ductal dilatation. 3. Prominent veins in the adnexa bilaterally. This may reflect pelvic congestion syndrome. Please correlate clinically. 4. Small amount of free fluid in the pelvis. This may be physiologic in a patient this age. Exam(s) Addendum created by Damaris Goode MD on 01/30/2019 7:12:38 PM EST Results discussed withDr. Valdivia at 6:12 PM central time Initial report created on 01/30/2019 2:34:20 PM EST PROCEDURE INFORMATION: Exam: CT Abdomen And Pelvis With Contrast Exam date and time: 01/30/2019 2:10 PM Clinical history: 38 years old, female; Abdominal pain; Localized; Right upper quadrant (ruq) TECHNIQUE: Imaging protocol: Computed tomography of the abdomen and pelvis with intravenous contrast. Contrast material: OMNIPAQUE 350; Contrast volume: 100 ml; Contrast route: IV 20G RAC; COMPARISON: US PELVIS TRANSVAGINAL 01/28/2019 9:18 AM FINDINGS: Lungs: Lung bases are clear. Pleural effusion is not seen. Liver: No focal intrahepatic abnormality is identified. Gallbladder and bile ducts: No calcified gallstones are identified. There is no definite gallbladder wall thickening, significant pericholecystic fluid identified. There is no significant intra-nor extrahepatic biliary ductal dilatation. Pancreas: Pancreas is unremarkable. No pancreatic duct dilatation. No peripancreatic inflammation. Spleen: There is a small cyst noted anteriorly within the spleen. It measures approximately 9 mm in maximum diameter on series 4 image 8. Spleen is normal in size. Adrenals: Adrenals are unremarkable Kidneys and ureters: No radiopaque urinary tract calculi. No evidence of hydronephrosis. Stomach and bowel: There is no evidence of bowel obstruction, mass or pneumatosis. There are findings suspicious for possible bowel wall thickening particularly involving the distal small bowel/ileum. Findings could represent enteritis. Appendix: The appendix is not well delineated but there are no definite findings to suggest acute appendicitis. Intraperitoneal space: Small amount of free fluid is seen within the pelvic cul-de-sac which may be physiologic in a patient of this age. No significant ascites focal collections or free intraperitoneal air is identified. Vasculature: Aorta is non-aneurysmal. Lymph nodes: There are a few small mesenteric nodes which do not appear significantly enlarged by size criteria. Bladder: Bladder is unremarkable Reproductive: The uterus is anteverted. Prominent pelvic veins are noted greater on the left than the right. There is enlargement of the ovarian veins. There is no evidence of an adnexal mass. Bones/joints: There is no acute or destructive bony abnormality. Soft tissues: No significant subcutaneous abnormality. Incidental note is made of a small fat containing ventral/embolus hernia. IMPRESSION: 1. No calcified gallstones. No definite gallbladder wall thickening or pericholecystic fluid. No significant biliary ductal dilatation. 2. The bowel is not opacified with contrast but there are findings suspicious for some bowel wall thickening particularly involving the distal small bowel. Findings could represent enteritis. 3. Small amount of free fluid within the pelvic cul-de-sac likely physiologic in a patient this age. 4. Prominent pelvic venous structures noted in the adnexa bilaterally greater on the left than the right. Prominence of the ovarian veins. In the appropriate setting the findings could be related to pelvic congestion syndrome. Labs on day of discharge: Labs from last 24 hours 02/01/19 02/01/19 02/01/19 07:00 07:00 07:00 WBC 5.61 RBC 3.81 L Hgb 11.3 L Hct 35.8 L MCV 94.0 MCH 29.7 MCHC 31.6 L RDW 13.3 Plt Count 236 MPV 9.9 Immature Gran % 0.0 Neutrophils % 67.2 Lymphocytes % 21.4 Monocytes % 9.6 Eosinophils % 1.4 Basophils % 0.4 Absolute Neutrophils 3.77 Absolute Lymphocytes 1.20 Absolute Monocytes 0.54 Absolute Eosinophils 0.08 Absolute Basophils 0.02 Sodium 146 H Cancelled Potassium 3.8 Cancelled Chloride 112 H Cancelled Carbon Dioxide 26.2 Cancelled Anion Gap 7.8 Cancelled BUN 5 L Cancelled Creatinine 0.71 Cancelled Estimated GFR/1.73 m2 >= 60.00 Cancelled Glucose 90 Cancelled Calcium 8.6 Cancelled Magnesium 2.0 Total Bilirubin 0.3 AST 14 L ALT 14 Alkaline Phosphatase 43 L Total Protein 6.4 Albumin 3.0 L 01/31/19 12:00 WBC RBC Hgb 11.2 L Hct 34.6 L MCV MCH MCHC RDW Plt Count MPV Immature Gran % Neutrophils % Lymphocytes % Monocytes % Eosinophils % Basophils % Absolute Neutrophils Absolute Lymphocytes Absolute Monocytes Absolute Eosinophils Absolute Basophils Sodium Potassium Chloride Carbon Dioxide Anion Gap BUN Creatinine Estimated GFR/1.73 m2 Glucose Calcium Magnesium Total Bilirubin AST ALT Alkaline Phosphatase Total Protein Albumin Preliminary micro results at discharge 01/30/19 20:54 Blood Culture - Preliminary Blood NO GROWTH 24 HOURS 01/30/19 21:00 Blood Culture - Preliminary Blood NO GROWTH 24 HOURS [facility] Medical History Dehydration, moderate (Acute) Enteritis (Acute) Hypotension (Acute) Nausea and vomiting in adult (Acute) Family History Mother Essential hypertension Father Essential hypertension Heart disease Aortic stenosis, CABG with valve in 2014 Alcohol abuse Colon cancer hemicolectomy Sister Cancer Substance abuse Maternal Grandfather No problems noted. Paternal Grandfather , MVA 1986 No problems noted. Maternal Grandmother Breast cancer Paternal Grandmother Colorectal cancer Daughter No problems noted. Daughter No problems noted. Social History Smoking/Tobacco Use Status: Never Alcohol Intake: current Alcohol Intake frequency: 0-2 drinks per day Alcohol type: wine Drug use: Never Substance use type: does not use Caregiver/Support person: No Household members: spouse and children Housing: house Communication Needs: Corrective Lenses Do you need help understanding health information?: Never Pets and animals: Yes Pets and animals: cat(s) Sexually active: Yes Do you think of yourself as: straight/heterosexual Current gender identity: female What is your relationship status?: How often do you talk on the phone with friends or family?: twice per week How often do you get together with friends or relatives?: once per week How often do you attend confucianist or yarsanism services?: decline to answer Do you belong to any clubs or organized social groups?: no Panel score (0-1 are the most socially isolated patients): 2 What type of physical activity do you participate in: bicycling, other Details: Skiing and running Duration: 45-60 minutes/day Frequency: 5-6 times per week Carmencita/Catholic: None Special carmencita needs: No Seatbelt use: always Helmet use: Yes Drive intox or ride w/intox courtesy car driver: No Do you feel safe at home: Yes Do you feel safe in your relationship?: Yes
--- NOTE | 2019-02-01 12:32 | DI.MRI_ITS ---
EXAM: MR LUMBAR SPINE WO CLINICAL HISTORY: back pain, spasms. TECHNIQUE: Multiplanar multisequence MRI was performed. COMPARISON: No exams were available for comparison FINDINGS: The conus medullaris has a normal appearance and location. Disc spaces show normal signal. No focal disc herniation, central spinal canal or neural foraminal s tenosis is seen in the lumbar spine. There is normal marrow signal. IMPRESSION: No focal disc herniation, central spinal canal or neural foraminal stenosis in the lumbar spine.
--- NOTE | 2019-02-01 17:06 | CMDISCH_ITS ---
- If Service Date Differs Date of service: 02/01/19 Time of Service: 17:06 LACE Index Scoring Tool - Questions: Length of Stay (in days): 3 Acuity (Admit via E.D.?): Yes E.D. Visits: 1 - Answers: Total Score: 7 Risk of Readmission: Low Risk Care Management Discharge Reason for Hospitalization: Abdominal Pain, Hypotension Discharge Plan: Anuradha will return home with no additional services at this time. She will follow up with her PCP, as recommended. Her will trans port her home via private vehicle. Patient/Family Education Needs: Review discharge instructions regarding activity levels and medications, discussion of self care needs including Ask Me Three
== END 2019-02-01 13:02 | disposition home or self-care (01) | DRG 395 ==
LOC: ER 20:10 → ICU 21:55 → MS 01-31 09:18 → ICU 02-03 15:12
PROVIDERS: Nurse Practitioner Family; Admitting Provider Internal Medicine; Emergency Provider Student in an Organized Health Care Education/Training Program; PCP Nurse Practitioner; Visit Provider Internal Medicine
DX: K52.1 Toxic gastroenteritis and colitis (principal); T39.395A Adverse effect of other nonsteroidal anti-inflammatory drugs [NSAID], initial encounter; I95.9 Hypotension, unspecified; A08.4 Viral intestinal infection, unspecified; E86.0 Dehydration; N92.1 Excessive and frequent menstruation with irregular cycle; D50.0 Iron deficiency anemia secondary to blood loss (chronic); M54.42 Lumbago with sciatica, left side
CPT/HCPCS: 36415; 80048; 80053; 83690; 84145; 85027; 86850; 86900; 86901; 87040; 96361; 96365; 96375; 99223; 99231; 99233; 99239; 99253; 99285; J1650; 72148; 74177; 81003; 81015; 83605; 83735; 85014; 85018; 85025; 99284; J2405; J3475; J3490; J7042

== ENCOUNTER 2019-03-29 06:08 | Day surgery (SDC) | payer OTHER, SELFPAY ==
[2019-03-29 06:16] VITALS: BP 115/75; PULSE 66; RESP 16; TEMP 36.7; O2SAT 98
--- NOTE | 2019-03-29 06:39 | W.PM.ENDDOP ---
Date of service: 03/29/19 Time of Service: 07: Endoscopy Report DATE OF PROCEDURE: 03/29/19 PRE-OP DIAGNOSIS: Colon CAncer Screening, family history of colon cancer and Gastritis POST-OP DIAGNOSIS: same PROCEDURE: 1. EGD with biopsies 2. Colonoscopy SURGEON: Altagracia Veras ANESTHESIA: other (General/ ASA 2/Nori Monique, MARS ) ESTIMATED BLOOD LOSS: 3 COMPLICATIONS: None DISPOSITION: same day INDICATIONS: 38 y/o female with history of hypotension and anemia presents for colonoscopy screening pre-op. Her last screening was over 10 years ago, which she reports was unremarkable, however she does mention it was expressed to her that she had a tortous bowel.. She reports a family history of colon cancer in her father in his 30s which resulted in him having a hemicolectomy. She denies any changes in bowel habits including bloody or black tarry stools, abdominal pain, diarrhea or constipation. She denies constitutional symptoms. Denies use of marijuana or any other recreational or illegal drugs. Of note she was recently hospitalized from 01/30/19-02/01/19 for RUQ pain, nausea and vomiting. At that time she was diagnosed with gastritis and was started on Protonix and carafate. Since being d/c from the hosptial she reports that she has refrained from drinking coffee and ETOH. She has stopped the carafate for this was causing abdominal bloating and discomfort. She has also since stopped taking the Omperazole secondary to increased flatus and passing mucus. Since stopping these medications all of these symptoms have resolved. PREP: Miralax/Dulcolax PROCEDURE START TIME: :27 PROCEDURE END TIME: 08:05 COLONOSCOPY RETRACTION TIME: 17 minutes FINDINGS: EGD- mild Gastritis. No ulcers Colonoscopy- 3 hyperplastic polyps PROCEDURE DESCRIPTION: After informed consent was obtained the patient was take to the procedure room and placed in a supine position. Monitors were applied and a time out was done. The patients name, date of , procedure type, allergies to medications and metal in their body was reviewed. A bite block was placed and the patient was sedated. Once sedated and comfortable the gastroscope was advanced through the oropharynx which was grossly normal into the esophagus. The esophagus were normal. The scope was advanced into the stomach and through the pylorus into the 3rd portion of the duodenum. The duodenum was noted to be normal. The scope was retracted back into the stomach and mild inflammation was noted. Biopsies were done to rule out H. pylori. There were no ulcers. The scope was retro-flexed. The cardia and fundus were noted to be normal. There was no hiatal hernia noted. The scope was retracted back into the esophagus. The Z line was regular. The GE junction was at 41 cm. While the patient was still sedated they were placed in a left decubitous position. A rectal exam was done. External exam was normal. Internal exam revealed a relaxed sphincter tone and no palpable masses. The scope was then introduced and retro-flexed. No internal hemorrhoids, masses or polyps were identified. The scope was then advanced to the cecum without difficulty. The colon was tortuous. The TI and appendiceal orifice were identified. The prep was adequate. The scope was then slowly retracted over 17 minutes back into the rectum. 3 small hyperplastic polyps were identified in the rectum and removed with cold forceps. The scope was removed and the patient was woken up and taken back to Same day surgery in stable condition. The patient tolerated the procedure well and there were no immediate complications. Follow up: 5 years for the next colonoscopy due to a family history of colon cancer.
--- NOTE | 2019-03-29 06:41 | W.PM.DSUDISC ---
Discharge Plan Disposition Patient Disposition: HOME Condition: Good Discharge Details Reason For Visit: Colon Cancer screening and Gastritis Attending Provider: Altagracia Veras Primary Care Provider: Monique Bruno Home Meds and New Rx's Prescriptions: No Action multivitamin Tablet 1 tab PO DAILY RF: 0 omeprazole 40 mg capsule,delayed release(DR/EC) 40 mg PO DAILY Qty: 30 RF: 0 Discharge Instructions Additional Instructions: Findings: Mild inflammation of the stomach 3 small hyperplastic polyps in the rectum Follow up: 5 years for next colonoscopy Please call if you develop: fevers >101.5 Nausea or Vomiting Abdominal pain that is not transient DAY SURGERY UNIT POST ENDOSCOPY INSTRUCTIONS 1. Because there will be medication in your system for the next 24 hours, you may feel a little sleepy. Your coordination will be affected. Therefore: a. Do not drive or operate dangerous equipment for 24 hours. b. Do not drink alcohol beverages for 24 hours (not even beer). c. Plan to go home and rest for the day. 2. Generally there are no restrictions on your activity after a day or so has gone by, but you may feel a bit fatigued for a few days. 3 After you arrive home you may have a light meal and return to a normal diet as you can tolerate it without feeling sick to your stomach. 4. After surgery, you may feel pain or discomfort. This should be only transient, but if it persists please contact your doctor. 5. If there are any questions regarding the findings of your procedure, please feel free to contact your doctor. 6. If you are unable to contact your doctor with a problem, contact the hospital at [phone]. 7. Continue all your regular medications unless directed otherwise. I understand the above instructions and have no questions. Signature of Patient or Responsible Adult Escort Date/Time Name of Responsible Adult Escort Signature of Nurse Date/Time Activity:: Activity as Tolerated Diet:: As Tolerated Discharge Orders Discharge Orders: Discharge Order (Routine); Ordered 03/29/19 Ordered By: Altagracia Veras DS: Diagnosis Discharge Diagnosis (1) Gastritis: Status: Acute
[2019-03-29] MEDS: Lactated Ringers 1,000 ML 80 ML IV (07:07)
--- NOTE | 2019-03-29 07:30 | STOM_PTH ---
PATIENT: Anuradha Dunlap LOC: [facility] U#:[id number] AGE/SX: 38/F ROOM: RE03/29/[address]: Altagracia Veras MD : 1980 BED: DIS: 03/29/2019 SPEC #: [id number] RECD: 03/29/19 12:41 STATUS: ANDRA REQ #: [id number] NAS: 03/29/19 07:[address]: Altagracia Veras DEPT: Surgical Specimen RECD BY: Yanni Pina ENTERED: 03/29/19 12:42 SP TYPE: STOMACH OTHR DR: Monique Bruno, PhD DEALER DEVELOPMENT MANAGER Tissues: 1 - STOMACH BIOPSY 2 - BIOPSY BOWEL Procedures: GROSS AND MICRO LEVEL 4 Comments: [id number]
[2019-03-29 08:37] VITALS: BP 83/46; PULSE 52; RESP 16; TEMP 36.4; O2SAT 99
== END 2019-03-29 09:20 | disposition home or self-care (01) ==
PROVIDERS: PCP Nurse Practitioner; Visit Provider Surgery
PROC: (CPT 45380; principal; 2019-03-29 07:30)
DX: Z12.11 Encounter for screening for malignant neoplasm of colon (principal); K63.89 Other specified diseases of intestine; K62.1 Rectal polyp; Z80.0 Family history of malignant neoplasm of digestive organs; K29.70 Gastritis, unspecified, without bleeding; K31.89 Other diseases of stomach and duodenum
CPT/HCPCS: 45380; 43239; 88305; J2001; J2405; J2704

== ENCOUNTER 2019-11-13 11:33 | Emergency (ER) | payer OTHER, SELFPAY ==
[2019-11-13 11:37] VITALS: BP 109/78; PULSE 68; RESP 18; TEMP 36.5; O2SAT 98
--- NOTE | 2019-11-13 11:37 | ED.GENADUL_ITS ---
Discharge Plan Disposition Patient Disposition: HOME Condition: Stable Discharge Details Chief Complaint: Nausea/Vomit/Diar Clinical Impression: Diarrhea, Abdominal cramping Primary Care Provider: Monique Bruno ED Provider: Christina Trinidad Home Meds and New Rx's Prescriptions: New ondansetron 4 mg tablet,disintegrating 4 mg PO TID PRN (Reason: nausea and vomiting) Qty: 6 RF: 0 Discharge Instructions Instructions: Acute Diarrhea (ED), Abdominal Pain (ED) Additional Instructions: Drink plenty of fluids and get plenty of rest. You can try [id number] Pepcid, Prilosec or Prevacid for your upper abdominal pain. Follow up with your primary care doctor in 1 week as needed. Return to the emergency department with any worsening or new concerning symptoms such as fever, increased pain, persistent vomiting. 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 She states if not for coronavirus, she would not of come into the ER today. Vitals are within normal limits. She appears nontoxic. She denies any pain at this time. Her abdomen is soft and nontender. She denies any URI or respiratory symptoms. Do not see medication for lab work or imaging and patient is agreeable. We will plan for COVID-19 testing here. 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 Advised to follow up with the primary care doctor for re-evaluation. Usual and customary return precautions given prior to discharge. Medical Records Medical records reviewed: Yes I reviewed the patient's medical records. HPI General Mode of arrival: ambulatory . Date/Time Provider Initiated Documentation: 11/13/19 11:36 . Limitations to Documentation: no limitations . Information obtained by: patient . 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 She denies any fever, chest pain, shortness of breath, cough, vomiting, urinary symptoms, recent travel, recent sick contacts or new medications. She denies any pain at present. She denies any rectal bleeding. Related Data Home Medications Medication Instructions Recorded Confirmed ondansetron 4 mg PO TID PRN #6 tab 11/13/19 Previous Rx's Medication Instructions Recorded ondansetron 4 mg PO TID PRN #6 tab 11/13/19 Allergies Allergy/AdvReac Type Severity Reaction Status Date / Time prochlorperazine edisylate Allergy Severe Extrapyramidal Unverified 11/13/19 1 1:45 [From Compazine] affects Metronidazole HCl AdvReac Intermediate HEADACHE Unverified 11/13/19 11:45 [From Flagyl] oxycodone AdvReac Intermediate VOMITS Unverified 11/13/19 11:45 promethazine [From Phenergan] AdvReac Mild The Verified 11/13/19 11:45 reaction ishypotension see that General DO: 3 Review of Systems All systems reviewed & are unremarkable except as noted in HPI and below Constitutional Constitutional: Reports as per HPI, Denies chills and Denies fever(s) Eyes Eyes: Denies blurry vision ENT Ears, Nose, Mouth, and Throat: Denies dizziness, Denies sore throat and Denies throat swelling Cardiovascular Cardiovascular: Denies chest pain and Denies dyspnea Respiratory Respiratory: Denies cough and Denies dyspnea Gastrointestinal Gastrointestinal: Reports abdominal pain, Reports diarrhea, Reports nausea and Denies vomiting Genitourinary Genitourinary: Denies hematuria and Denies dysuria Musculoskeletal Musculoskeletal: Denies back pain and Denies numbness Integumentary/Breasts Skin/Breast: Denies lesions and Denies rash Neurologic Neurologic: Denies dizziness, Denies localized weakness and Denies numbness Allergic/Immunologic Allergic/Immunologic: Denies throat swelling COUNT INCLUDES THE [facility] Medical History (Updated 11/13/19 @ 12:27 by Christina Trinidad DO) Dehydration, moderate (Acute) Encounter for supervision of other normal , third trimester (Inactive 04/19/15) Enteritis (Acute) Hyperemesis gravidarum before end of 22 week gestation with carbohydrate depletion (Inactive 12/22/14) Hypotension (Acute) Nausea and vomiting during (Inactive 06/01/15) Nausea and vomiting in adult (Acute) care and examination of lactating mother (Inactive 10/06/12) Supervision of other high risk pregnancies, first trimester (Inactive 12/22/14) Surgical History (Updated 03/29/19 @ 06:41 by Altagracia Veras MD) History of colonoscopy (Chronic ~03/29/19) 2008- nl Family History Mother Essential hypertension Father Essential hypertension Heart disease Aortic stenosis, CABG with valve in 2014 Alcohol abuse Colon cancer hemicolectomy Sister Cancer Substance abuse Maternal Grandfather No problems noted. Paternal Grandfather , MVA 1986 No problems noted. Maternal Grandmother Breast cancer Paternal Grandmother Colorectal cancer Daughter No problems noted. Daughter No problems noted. Social History (Updated 03/08/19 @ 10:17 by ZABRINA Sosa) Smoking/Tobacco Use Status: Never Alcohol Intake: current Alcohol Intake frequency: holidays/special occasions only Alcohol type: wine Drug use: Never Substance use type: does not use Caregiver/Support person: No Household members: spouse and children Housing: house Communication Needs: Corrective Lenses Do you need help understanding health information?: Never Pets and animals: Yes Pets and animals: cat(s) Sexually active: Yes Do you think of yourself as: straight/heterosexual Current gender identity: female What is your relationship status?: How often do you talk on the phone with friends or family?: twice per week How often do you get together with friends or relatives?: once per week How often do you attend shinto or buddhist services?: decline to answer Do you belong to any clubs or organized social groups?: no Panel score (0-1 are the most socially isolated patients): 2 What type of physical activity do you participate in: bicycling, other Details: Skiing and running Duration: 45-60 minutes/day Frequency: 5-6 times per week Carmencita/Mandaen: None Special carmencita needs: No Seatbelt use: always Helmet use: Yes Drive intox or ride w/intox flatbed truck driver: No Do you feel safe at home: Yes Do you feel safe in your relationship?: Yes Exam Const General: cooperative, healthy appearing and no acute distress [facility] Head: normal to inspection Face and sinus: normal facial exam Eyes General: appearance normal, both eyes and all related structures EOM: EOM intact bilaterally Neck Neck: normal visual inspection and No submandibular swelling Lymphatic: no lymphadenopathy noted Chest Chest: normal inspection of the chest and no tenderness Resp Effort & Inspection: normal respiratory effort and able to speak in complete sentences Auscultation: clear to auscultation bilaterally Cardio Rate: regular rate Rhythm: regular rhythm GI Inspection: normal to inspection Palpation: soft, not firm, not rigid and nontender Auscultation: normal bowel sounds Skin General skin exam: no rashes or lesions noted Neuro General: patient alert, patient awake and patient oriented x3 Cognition: normal cognition Speech: speech normal Motor: muscle tone normal throughout Sensory Exam: no sensory deficits noted Extrem General: normal to inspection, full ROM, capillary refill normal, no calf tenderness bilaterally and no edema Psych Appearance: grossly normal Mental Status: mental status grossly normal Speech and Movement: speech and movement normal Affect: normal affect
[2019-11-14 13:15] LABS: COVID-19 RT-PCR Result NEGATIVE (Negative)
--- NOTE | 2019-11-14 17:21 | NUR.NOTE ---
1720 pt called with Covid result--Negative.Nursing Note:
== END 2019-11-13 12:33 | disposition home or self-care (01) ==
PROVIDERS: Emergency Provider Physician Assistant; PCP Nurse Practitioner
DX: R19.7 Diarrhea, unspecified (principal); R11.0 Nausea; R10.10 Upper abdominal pain, unspecified; Z03.818 Encounter for observation for suspected exposure to other biological agents ruled out
CPT/HCPCS: 99283; U0003

== ENCOUNTER 2020-06-06 01:20 | Outpatient (CLI) | payer OTHER, SELFPAY ==
--- NOTE | 2020-06-06 10:20 | DI.MAMMO_ITS ---
EXAM: MAMMO SCREENING CLINICAL HISTORY: BASELINE, SCREENING, Z12.39 TECHNIQUE: Mammograms were interpreted according to the usual protocol including computer analysis w joblocal CAD system, tomosynthesis and C-view imaging. COMPARISON: FINDINGS: The breasts are heterogeneously dense. No dominant mass or clumped microcalcification is identified in either breast. Today's examination is a baseline examination. IMPRESSION: No specific evidence of malignancy at this time. Routine screening examinations are suggested at yea rly intervals in this age group according to the ACR guidelines. BI-RADS Category 1 - Negative Breast Density - Category C - Heterogeneously dense
== END 2020-06-06 01:40 ==
PROVIDERS: PCP Nurse Practitioner; Visit Provider Nurse Practitioner
DX: Z12.31 Encounter for screening mammogram for malignant neoplasm of breast (principal)
CPT/HCPCS: 77063; 77067

== ENCOUNTER 2020-06-22 16:01 | Outpatient (REF) | payer OTHER, SELFPAY ==
--- NOTE | 2020-06-22 15:15 | PAPFT_PTH ---
PATIENT: Anuradha Dunlap LOC: [facility] U#:[id number] AGE/SX: 40/F ROOM: RE06/22/[address]: Maddy Ureña DO : 1980 BED: DIS: 06/22/2020 SPEC #: [id number] RECD: 06/22/20 17:37 STATUS: ANDRA RECharlee #: [id number] NAS: 06/22/20 15:[address]: Maddy Ureña DEPT: [facility] Cytology RECD BY: Yanni Pina ENTERED: 06/22/20 17:37 SP TYPE: PAPFT OTHR DR: Monique Bruno, PhD KEYSEATER OPERATOR Tissues: 1 - CX/ENDOCX FOR PAP SMEARS Procedures: PAP THIN PREP/UVM Screening HPV DNA PROBE Comments: [id number] (CHLAMYDIA/GC)
[2020-06-23 14:11] LABS: Chlamydia Result Negative (Negative); GC Result Negative (Negative)
== END 2020-06-22 16:02 | disposition home or self-care (01) ==
LOC: LBN 16:01
PROVIDERS: PCP Nurse Practitioner; Visit Provider Obstetrics & Gynecology
DX: Z11.3 Encounter for screening for infections with a predominantly sexual mode of transmission (principal); Z12.4 Encounter for screening for malignant neoplasm of cervix; Z11.51 Encounter for screening for human papillomavirus (HPV)
CPT/HCPCS: 87491; 87591; 88142; 87624

== ENCOUNTER 2020-07-11 02:13 | Outpatient (CLI) | payer OTHER, SELFPAY ==
[2020-07-12 01:26] LABS: COVID-19 RT-PCR UVMMC Result Negative (Negative)
== END 2020-07-11 02:14 | disposition home or self-care (01) ==
LOC: LBO 02:13
PROVIDERS: PCP Nurse Practitioner; Visit Provider Nurse Practitioner
DX: Z20.822 Contact with and (suspected) exposure to COVID-19 (principal)
CPT/HCPCS: U0003

== ENCOUNTER 2021-07-02 12:14 | Outpatient (REF) | payer OTHER, SELFPAY ==
[2021-07-02 14:09] LABS: Source Nasal/Nares
[2021-07-02 16:39] LABS: COVID-19 PCR Negative (Negative)
== END 2021-07-02 12:15 | disposition home or self-care (01) ==
LOC: LBN 12:14
PROVIDERS: PCP Nurse Practitioner; Visit Provider Nurse Practitioner Family
DX: Z20.822 Contact with and (suspected) exposure to COVID-19 (principal)
CPT/HCPCS: 87635

== ENCOUNTER → 2021-10-09 00:21 | Outpatient (CLI) | payer OTHER, SELFPAY ==
--- OUTSIDE RECORDS SUMMARY | 2021-10-09 00:22 | XMS_ITS | Encounter Summary ---
:1980 Author Organization [facility] [place] [address] Care Team Providers Name Role Phone Monique Bruno APRN Primary Care Provider [phone] Encounter Details Date Type Department Care Team Description 03/19/2021 Telephone Dermatology at [facility] Carol Abarca MD [address] [facility] [place] [id number] [facility]DER[facility] [phone] [place], [place] [address] (Wo rk) Social History Tobacco Use Types Packs/Day Years Used Date Never Smoker Smokeless Tobacco: Never Used Alcohol Use Standard Drinks/Week Comments No 0 (1 standard drink = 0.6 oz pure alcoho l) Sex Assigned at Date Recorded Not on file documented as of this encounter Miscellaneous Notes Telephone Encounter - Dominique Moscoso - 03/19/2021 4:08 PM EST Left msg to schedule 1 yr FSE documented in this encounter Plan of Treatment Not on filedocumented as of this encounter Visit Diagnoses Not on filedocumented in this encounter Care Teams Director [employer] Relationship Specialty Start Date End Date Monique Bruno APRN PCP - General Family Medicine 01/27/[address] [place], [place] [address] documented as of this encounter
--- OUTSIDE RECORDS SUMMARY | 2021-10-09 00:22 | XMS_ITS | Continuity of Care Document ---
:1980 Author Organization [facility] [place] [address] Care Team Providers Name Role Phone Damion Moniqueleona Shoemaker APRN Primary Care Provider [phone] Encounters Date Type Specialty Care Team Description 03/19/2021 Telephone Dermatology Carol Abarca MD 04/03/2020 Office Visit Dermatology Carol Abarca Lentigines; MD Leigh Multiple benign nevi; Family history of skin cancer 02/23/2015 Telephone Obstetrics and Carmen Holbrook Results Gynecology R, MS 02/14/2015 Procedure visit Obstetrics and Joshua E Multigravi da of advanced maternal age, second trimester; Gynecology MD Elena Encounter for s upervision of other normal in second trimester 02/14/2015 Office Visit Obstetrics and Carmen Holbrook AMA (advanc ed Gynecology R, MS maternal age) multigravida 35 +, second trimeste r 02/14/2015 Hospital Encounter Radiology Pschirrlibrado, E Maternal age > 35, MD Elena multigravida, unspecified trimester 01/24/2015 Orders Only Obstetrics and Joshua E Maternal age > 35, Gynecology MD Elena multigravida, unspecified trimester Allergies Active Allergy Reactions Severity Noted Date Comments Oxycodone-Acetaminophen Prochlorperazine Metronidazole Hcl Other (See Comments) 02/14/2015 He adaches Medications Medication Sig Dispensed Refills Start Date End Date Status CIS Free Text Med - prenatals 0 11/13/2009 Active Additional Information Patient not taking. Reported on 04/03/2020 RANITIDINE HCL (ZANTAC ORAL) 0 11/13/2009 Active FOLIC ACID ORAL 0 11/13/2009 Act markell ibuprofen (ADVIL;MOTRIN) 600 mg 600 MG = 1 Tablet(s), PO, 0 11/13/2009 Active tablet Q6H,PRN Active Problems Problem Noted Date Supervision of other normal 02/14/2015 Multigravida of advanced maternal age 1102/14/2015 CIS - right labial cyst Resolved Problems Problem Noted Date Resolved Date CIS - Entered not Verified 10/13/2009 02/14/2015 Family History Medical History Relation Comments Denson Syndrome Father pt tested neg for fa milial mutation Cystic Fibrosis Father of Baby Relative FOB's cousin's c hild with CF Relation Status Comments Father Father of Baby Relative Social History Smoking Status as of 10/09/2021 Tobacco Use Types Packs/Day Years Used Date Never Assessed Sex Assigned at Date Recorded Not on file Last Filed Vital Signs Vital Sign Reading Time Taken Comments Blood Pressure 102/58 02/14/2015 9:36 AM EST Pulse - - Temperature - - Respiratory Rate - - Oxygen Saturation - - Inhaled Oxygen Concentration - - Weight 68 kg (150 lb) 02/14/2015 11:32 AM EST Height 167.6 cm (5' 6) 02/14/2015 11:32 AM EST Body Mass Index 24.21 02/14/2015 11:32 AM EST Plan of Treatment Not on file Procedures Procedure Name Priority Date/Time Associated Diagnosis Comme nts MISCELLANEOUS LAB Routine 02/14/2015 12:13 AMA (advanced Resul ts for this REQUEST PM EST maternal age) procedure are in multigravida 35+, the result s second trimester section. US OB DETAILED Routine 02/14/2015 11:10 Maternal age > 35, Res ults for this MORPHOLOGY AM EST multigravida, procedure are in unspecified the results trimester section. Results Miscellaneous Lab request (02/14/2015 12:13 PM EST) [facility] Time Signature [facility] Lab Request CERNER Result received in [facility] lab. Specimen Anatomical Collection Method Collection Time Receive d Time (Source) Location / / Volume Laterality Blood specimen 02/14/2015 12:13 5 1:34 (specimen) PM EST PM EST Resulting Agency Comment Spec In Lab E Elena Lewis MD HEMATOLOGY ORDERABLES Performing Organization Address City/State/[place] [address] [facility] OB Targeted Morphology (02/14/2015 11:10 AM EST) Anatomical Region Laterality Modality Pelvis, Abdomen Ultrasound Specimen (Source) Anatomical Collection Method Collection Time Re ceived Time Location / / Volume Laterality 02/14/2015 10:28 AM EST Impressions 02/14/2015 12:18 PM EST Impression 2nd Trimester - Targeted Morphology- Camacho mmary Single intrauterine with a ge stational age of 18w 3d based on clinical MORENO. Composite age based on the current ultr asound alone is 18w 3d. Current growth parameters are consisten t indicating normal growth. Amniotic fluid volume is appropriate fo r gestational age. Detailed anatomic evaluation was performed and no structural abnormalities are noted. I ??viewed the images and agree with janki loaiza above interpretation. ? Nuria Lewis MD Electronically Signed Final Report ?? 12:17 pm Narrative 02/14/2015 12:18 PM EST OBSTETRICS REPORT ?(Signed Final 02/14/2015 12:17 pm) Patient Info ID #: ? [id number] ?: ??[birth year] (34 yrs) Name: ? ANURADHA Abraham ? Visit Date: 02/14/2015 10:28 am ? ANANYA Performed By Performed By: ? Marley Maynard RDMS Attending: ?Nuria Lewis MD ? ?Elena Referred By: ?JAS MENDEZ MD Service(s) Provided ??[facility] - Targeted Morphology - Genetics - [id number] Indications ??AMA; E - Coordinates with gestational age ??or more than one week OB History Height: ? 5'3 ?Weight: ?? 1 48 ?BMI: ??26.21 Evaluation Num Of Fetuses: ? 1 Heart ? 135 Rate(bpm): Cardiac Activity: ?? Observed, normal r hythm Presentation: ? Cephalic Placenta: ? Posterior P. Cord Insertion: ??Within Normal Limi ts Amniotic Fluid KAILEE FV: ?Appropriate for gestati onal age -------- Biometry -------- BPD: ?40.7 ??mm ? G.Age: ?? 18w 2d OFD: ?51.7 ??mm HC: ?148.2 ??mm ? G.Age: ?? 17w 6d AC: ?149.5 ??mm ? G.Age: ?? 20w 1d FL: ? 25.1 ??mm ? G.Age: ?? 17w 4d HUM: ?24.9 ??mm ? G.Age: ?? 17w 6d CER: ?19.1 ??mm ? G.Age: ?? 18w 4d NFT: ? 4.6 ??mm NB: ?4.7 ??mm LV: ?6.2 ??mm CM: ?3.8 ??mm CI: ?78.7 ??% ? 70 - 86 FL/HC: ? 16.9 ??% ? 15.8 - 18 HC/AC: ? 0.99 ?1.07 - 1.29 FL/BPD: ?61.7 ??% FL/AC: ? 16.8 ??% ? Est. FW: ? 261 ?? gm ? 0 lb 9 o z Gestational Age Clinical MORENO: ??18w 3d ?MORENO: ?? 07/15/15 U/S Today: ? 18w 3d ?MORENO: ?? 07/15/15 Best: ?18w 3d ?? Det. By: ??Clinical MORENO ? MORENO: ?? 07/15/15 Targeted Anatomy Central Nervous System Calvarium: ?Within Norm al Limits Intracranial: ? Within Normal Limits Cavum: ?Visualized Lat. Ventricles: ?Within Normal Limits Cerebellum: ? Within Sherice l Limits Choroid Plexus: ? Within Normal Limits Cisterna Magna: ? Within Normal Limits Spine Cervical: ? Visualized Thoracic: ? Visualized Lumbar: ? Visualized Sacral: ? Visualized Head/Neck Face: ? Within No rmal Limits Nuchal Fold: ?Within Sherice l Limits Eyes: ? Visualize d Profile: ?Visualized Thorax Four Chamber: ? Within Normal Limits Cardiac Motion: ? Normal Rhythm R Outflow Tract: ?Visualized L Outflow Tract: ?Visualized Aortic Arch: ?Visualized Ductal Arch: ?Visualized Cardiac [place]: ? Visualized 3 Vessel View: ?Visualized Diaphragm: ?Visualized Abdomen Ventral Wall: ? Visualized Stomach: ?Visualized Lt Kidney: ?Visualized Rt Kidney: ?Visualized Bladder: ?Visualized Extremities Lt Humerus: ? Visualized Rt Humerus: ? Visualized Lt Forearm: ? Visualized Rt Forearm: ? Visualized Lt Hand: ?Visualized Rt Hand: ?Visualized Lt Femur: ? Visualized Rt Femur: ? Visualized Lt Lower Leg: ? Visualized Rt Lower Leg: ? Visualized Lt Foot: ?Visualized Rt Foot: ?Visualized Other Umbilical Cord: ? 3 vessel cord Cord Insertion: ? WIthin Normal Limits Comment: ? Nasal Bone: Visualize d Cervix Uterus Adnexa Left Ovary Not visualized Right Ovary Not visualized Procedure Note Nuria Lewis MD - 02/14/2015For matting of this note might be different from the original. OBSTETRICS REPORT (Signed Final 015 12:17 pm) Patient Info ID #: [id number] : [birth year] (34 y rs) Name: ANURADHA Abraham Visit Date: 02/14/2015 10:28 am ANANYA Performed By Performed By: Marley Maynard RDMS Attending: Nuria Lewis MD Referred By: JAS MENDEZ MD Service(s) Provided [facility] - Targeted Morphology - Genetics - [id number] Indications AMA; E - Coordinates with gestational a ge or more than one week OB History Height: 5'3 Weight: 148 BMI: 26.21 Evaluation Num Of Fetuses: 1 Heart 135 Rate(bpm): Cardiac Activity: Observed, normal rhyt hm Presentation: Cephalic Placenta: Posterior P. Cord Insertion: Within Normal Limits Amniotic Fluid KAILEE FV: Appropriate for gestational age -------- Biometry -------- BPD: 40.7 mm G.Age: 18w 2d OFD: 51.7 mm HC: 148.2 mm G.Age: 17w 6d AC: 149.5 mm G.Age: 20w 1d FL: 25.1 mm G.Age: 17w 4d HUM: 24.9 mm G.Age: 17w 6d CER: 19.1 mm G.Age: 18w 4d NFT: 4.6 mm NB: 4.7 mm LV: 6.2 mm CM: 3.8 mm CI: 78.7 % 70 - 86 FL/HC: 16.9 % 15.8 - 18 HC/AC: 0.99 1.07 - 1.29 FL/BPD: 61.7 % FL/AC: 16.8 % 20 - 24 Est. FW: 261 gm 0 lb 9 oz Gestational Age Clinical MORENO: 18w 3d MORENO: 07/15/15 U/S Today: 18w 3d MORENO: 07/15/15 Best: 18w 3d Det. By: Clinical MORENO MORENO: 07/15/15 Targeted Anatomy Central Nervous System Calvarium: Within Normal Limits Intracranial: Within Normal Limits Cavum: Visualized Lat. Ventricles: Within Normal Limits Cerebellum: Within Normal Limits Choroid Plexus: Within Normal Limits Cisterna Magna: Within Normal Limits Spine Cervical: Visualized Thoracic: Visualized Lumbar: Visualized Sacral: Visualized Head/Neck Face: Within Normal Limits Nuchal Fold: Within Normal Limits Eyes: Visualized Profile: Visualized Thorax Four Chamber: Within Normal Limits Cardiac Motion: Normal Rhythm R Outflow Tract: Visualized L Outflow Tract: Visualized Aortic Arch: Visualized Ductal Arch: Visualized Cardiac [place]: Visualized 3 Vessel View: Visualized Diaphragm: Visualized Abdomen Ventral Wall: Visualized Stomach: Visualized Lt Kidney: Visualized Rt Kidney: Visualized Bladder: Visualized Extremities Lt Humerus: Visualized Rt Humerus: Visualized Lt Forearm: Visualized Rt Forearm: Visualized Lt Hand: Visualized Rt Hand: Visualized Lt Femur: Visualized Rt Femur: Visualized Lt Lower Leg: Visualized Rt Lower Leg: Visualized Lt Foot: Visualized Rt Foot: Visualized Other Umbilical Cord: 3 vessel cord Cord Insertion: WIthin Normal Limits Comment: Nasal Bone: Visualized Cervix Uterus Adnexa Left Ovary Not visualized Right Ovary Not visualized IMPRESSION Impression 2nd Trimester - Targeted Morphology- Camacho mmary Single intrauterine with a ge stational age of 18w 3d based on clinical MORENO. Composite age based on the current ultr asound alone is 18w 3d. Current growth parameters are consisten t indicating normal growth. Amniotic fluid volume is appropriate fo r gestational age. Detailed anatomic evaluation was performed and no structural abnormalities are noted. I viewed the images and agree with the above interpretation. Nuria Lewis MD Electronically Signed Final Report 02/14 12:17 pm E Elena Lewis MD IMG US OB ORDERABLES Visit Diagnoses Diagnosis Start Date Maternal age > 35, multigravida, unspecified trimester 01/24/2015 Multigravida of advanced maternal age, second trimeste r 02/14/2015 Encounter for supervision of other normal in second trimester 02/14/2015 AMA (advanced maternal age) multigravida 35+, second t rimester 02/14/2015 Maternal age > 35, multigravida, unspecified trimester 02/14/2015 Lentigines 04/03/2020 Other dyschromia Multiple benign nevi 04/03/2020 Benign neoplasm of skin, site unspecified Family history of skin cancer 04/03/2020 Family history of other specified malignant neoplasm Care Teams Title One Kindergarten Teacher Relationship Specialty Start Date End Date Moniqeu Bruno APRN PCP - General Family Medicine 01/27/[address] [place] [address]
--- OUTSIDE RECORDS SUMMARY | 2021-10-09 00:22 | XMS_ITS | Encounter Summary ---
:1980 Author Organization [facility] Address [address] [place] [address] Care Team Providers Name Role Phone MigelmalloryRosa ROSTER CLERK Primary Care Provider Reason for Visit Reason Comments Advanced Maternal Age Consultation (Routine) - Closed Specialty Diagnoses / Procedures Referred By Contact Refer red To Contact Genetics / Obstetrics Diagnoses maternal age Nancy Isaac MD [facility] Scroll Shear Operator 5l and Gynecology Procedures full slot [address] [place], [place] [phone] [place] [phone] Phone: Fax: Referral ID Status Reason Start Date Expiration Date Visits Requ ested Visits Authorized [id number] Closed 01/18/2015 01/18/2016 2 2 Encounter Details Date Type Department Care Team Description 02/14/2015 Office Visit Obstetrics and Carmen Holbrook AMA (adv anced maternal Gynecology at [facility] MS age) multigravida 34+, [facility] sec ond trimester [address] [place] OBSTETRICS & [phone] GYNECOLOGY [phone] [place], [place] [address] Social History Tobacco Use Types Packs/Day Years Used Date Never Smoker Smokeless Tobacco: Never Used Alcohol Use Standard Drinks/Week Comments No 0 (1 standard drink = 0.6 oz pure alcoho l) Sex Assigned at Date Recorded Not on file documented as of this encounter Last Filed Vital Signs Vital Sign Reading Time Taken Comments Blood Pressure - - Pulse - - Temperature - - Respiratory Rate - - Oxygen Saturation - - Inhaled Oxygen Concentration - - Weight 68 kg (150 lb) 02/14/2015 11:32 AM EST Height 167.6 cm (5' 6) 02/14/2015 11:32 AM EST Body Mass Index 24.21 02/14/2015 11:32 AM EST documented in this encounter Progress Notes Carmen Holbrook, [place] - 02/14/2015 11:36 AM EST GENETIC COUNSELING NOTE Anuradhasatinder Dunlap was referred to the Diagnosis Program by Nancy Isaac MD. I met with Anuradha for a 35 minute genetic counseling visit. Chief Complaint Patient presents with ??? Advanced Maternal Age Family History Problem (# of Occurrences) Relation (Name,Age of Onset) Cystic Fibrosis (1) Father of Baby Relative: FOB's cousin's child with CF Denson Syndrome (1) Father: pt tested neg for familial mutation A three-generation pedigree was obtained and will be scanned into Anuradha's electronic medical record. OB History Grav Para Term Abortions TAB SAB Ect Mult Living 2 1 1 1 Patient's last menstrual period was 09/19/2014 (approximate). Estimated Date of Delivery: 07/15/15 based on early ultrasound dating (8w5d on 12/08/2014) Screening Results Test Result ??? Quad screen Screen negative ??? Open neural tube defect risk 1:40,200 ??? Down syndrome risk 1:1160 ??? Trisomy 18 risk 1:7010 ??? Ancestry-based carrier screening Prior negative CF carrier testing per pt report ??? Thalassemia screen MCV within normal limits (86 fL) Discussion 1. Advanced Maternal Age: We reviewed the association of maternal age and chromosomal aneuploidy. Wediscussed the options available to Anuradha, including anatomy ultrasound, non-invasive testing (NIPT), and amniocentesis, and each of their risks, benefits, and limitations. After our di scussion, Anuradha opted for NIPT. NIPT is approximately 99% accurate for Down syndrome and approximately 98% accurate for trisomy 18. A detection rate for trisomy 13 has not yet been published, given the rarity of this condition. Approximately 5% of samples will produce no results. The test can be drawn as early as 10w 0d. There is a ~10 day turn around time. In addition, we discussed the option of analysis of the X and Y chromosomes. Anuradha declined analysis of the X and Y. We will contact Anuradha directly once the results are complete. 2. Family History: ?? Cystic Fibrosis: Anuradha reported that her 's paternal first cousin has a child with CF. He has a 1/8 chance of being a CF carrier. Anuradha had negative CF carrier testing in her previous (per her report, no record sent). Assuming negative CF carrier testing for Anuradha, the overall risk for this couple to have a child with CF would not be increased. ?? Denson Syndrome: Patient reported her father has Denson syndrome with a known mutation; she has tested negative for this familial mutation (no records available for my review). The risk to Anuradha's children would not be increased. documented in this encounter Miscellaneous Notes Addendum Note - Alex Vazquez - 02/14/2015 11:53 AM EST Addended by: ALEX VAZQUEZ on: 02/14/2015 11:53 AM Modules accepted: Orders documented in this encounter Plan of Treatment Not on filedocumented as of this encounter Procedures Procedure Name Priority Date/Time Associated Diagnosis Comme nts MISCELLANEOUS LAB Routine 02/14/2015 12:13 AMA (advanced Resul ts for this REQUEST PM EST maternal age) procedure are in multigravida 35+, the result s second trimester section. documented in this encounter Results Miscellaneous Lab request (02/14/2015 12:13 PM EST) Patholo gist Method Time Signature [facility] Lab Request CERNER Result received in [facility] lab. Specimen Anatomical Collection Method Collection Time Receive d Time (Source) Location / / Volume Laterality Blood specimen 02/14/2015 12:13 5 1:34 (specimen) PM EST PM EST Resulting Agency Comment Spec In Lab E Elena Lewis MD HEMATOLOGY ORDERABLES Performing Organization Address City/State/ZIP [place] [address] [facility] documented in this encounter Visit Diagnoses Diagnosis AMA (advanced maternal age) multigravida 35+, second trimester documented in this encounter Care Teams Film Sound Engineer Relationship Specialty Start Date End Date Rosa Martin APRN PCP - General Family Medicine 01/23/15 01/26/20 documented as of this encounter
--- OUTSIDE RECORDS SUMMARY | 2021-10-09 00:22 | XMS_ITS | Encounter Summary ---
:1980 Author Organization [facility] [place] [address] Care Team Providers Name Role Phone Rosa Martin RECORDS MANAGEMENT ANALYST Primary Care Provider Encounter Details Date Type Department Care Team Description 02/14/2015 Hospital Encounter Radiology at [facility] Nuria Lewis Maternal age > 35, [facility] MD Elena multigravida, Drive [facility] [place], [place] [address] [address] OBSTETRICS & [phone] [place] [address] Social History Tobacco Use Types Packs/Day Years Used Date Never Smoker Smokeless Tobacco: Never Used Alcohol Use Standard Drinks/Week Comments No 0 (1 standard drink = 0.6 oz pure alcoho l) Sex Assigned at Date Recorded Not on file documented as of this encounter Medications at Time of Discharge Medication Sig Dispensed Refills Start Date End Date CIS Free Text Med - 0 11/13/2009 prenatals RANITIDINE HCL (ZANTAC 0 11/13/2009 ORAL) FOLIC ACID ORAL 0 11/13/2009 ibuprofen (ADVIL;MOTRIN) 600 MG = 1 0 11/13/2009 600 mg tablet Tablet(s), PO, Q6H,PRN documented as of this encounter Plan of Treatment Not on filedocumented as of this encounter Procedures Procedure Name Priority Date/Time Associated Diagnosis Comme nts US OB DETAILED Routine 02/14/2015 11:10 Maternal age > 35, Res ults for this MORPHOLOGY AM EST multigravida, procedure are in unspecified the results trimester section. documented in this encounter Results US OB Targeted Morphology (02/14/2015 11:10 AM EST) [...] 12:17 pm) Patient Info ID #: ? [id number] ?: ??[birth year] (34 yrs) Name: ? ANURADHA Abraham ? Visit Date: 02/14/2015 10:28 am ? ANANYA Performed By Performed By: ? Marley Maynard RDMS Attending: ?Nuria Lewis MD ? ?Elena Referred By: ?JAS MENDEZ MD Service(s) Provided ??[facility] - Targeted Morphology - Genetics - [id number] Indications ??AMA; E - Coordinates with gestational [...] ?61.7 ??% FL/AC: ? 16.8 ??% ? 20 - 24 Est. FW: ? 261 ?? gm ? [...] Aortic Arch: ?Visualized Ductal Arch: ?Visualized Cardiac [place]: ? Visualized 3 Vessel View: ?Visualized Diaphragm: [...] 015 12:17 pm) Patient Info ID #: [id number] : [birth year] (34 y rs) Name: ANURADHA Abraham Visit Date: 02/14/2015 10:28 am ANANYA Performed By Performed By: Marley Maynard RDMS Attending: Nuria Lewis MD Referred By: JAS MENDEZ MD Service(s) Provided [facility] - Targeted Morphology - Genetics - [id number] Indications AMA; E - Coordinates with gestational [...] Aortic Arch: Visualized Ductal Arch: Visualized Cardiac [place]: Visualized 3 Vessel View: Visualized Diaphragm: Visualized [...] Elena Lewis MD IMG US OB ORDERABLES documented in this encounter Visit Diagnoses Diagnosis Maternal age > 35, multigravida, unspeci fied trimester documented in this encounter Care Teams Cloud Automation Tester Relationship Specialty Start Date End Date Rosa Martin APRN PCP - General Family Medicine 01/23/15 01/26/20 documented as of this encounter
--- OUTSIDE RECORDS SUMMARY | 2021-10-09 00:22 | XMS_ITS | Encounter Summary ---
:1980 Author Organization [facility] [place] [address] Care Team Providers Name Role Phone MigelRosa tejada LORNA Primary Care Provider Reason for Visit Reason Onset Date Comments Results 02/23/2015 Encounter Details Date Type Department Care Team Description 02/23/2015 Telephone Obstetrics and Gynecology at Carmen Santa [place] Results [facility] Alayna fitzgerald OBSTETRICS & [place] [address] [place] [address] [phone] (Wo rk) Social History Tobacco Use Types Packs/Day Years Used Date Never Smoker Smokeless Tobacco: Never Used Alcohol Use Standard Drinks/Week Comments No 0 (1 standard drink = 0.6 oz pure alcoho l) Sex Assigned at Date Recorded Not on file documented as of this encounter Miscellaneous Notes Telephone Encounter - Carmen Holbrook MS - 02/23/2015 2:38 PM EST Anuradha Givens opted for non-invasive testing on 02/14/2015. I have left two messages for Tosha with the following information, but she has not yet returned my call. [place] Test: ?? Low risk (less than 1/10,000) for trisomy 21 ?? Low risk (less than 1/10,000) for trisomy 18 ?? Low risk (less than 1/10,000) for trisomy 13 The [place] Test is a non-invasive test for aneuploidy that analyzes cell-free DNAin maternal blood. Based on a risk cut-off of 1/100 (1%), the detection rates for trisomy 21 and trisomy 18 are greater than 99% and greater than 98%, respectively. The detection rate for trisomy 13 isuncertain given the rarity of the condition and the limited number of cases analyzed. Based on this result, Tosha declines additional testing at this time. documented in this encounter Plan of Treatment Not on filedocumented as of this encounter Visit Diagnoses Not on filedocumented in this encounter Care Teams Certified Optician Relationship Specialty Start Date End Date Rosa Martin APRN PCP - General Family Medicine 01/23/15 01/26/20 documented as of this encounter
--- OUTSIDE RECORDS SUMMARY | 2021-10-09 00:22 | XMS_ITS | Encounter Summary ---
:1980 Author Organization [facility] [place] [address] Care Team Providers Name Role Phone MigelterrellRosa rajan BOARDING KENNEL OR CATTERY OPERATOR Primary Care Provider Reason for Visit Consultation (Routine) - Closed Specialty Diagnoses / Procedures Referred By Contact Refer red To Contact Genetics / Obstetrics Diagnoses maternal age Nancy Isaac MD [facility] Obstetrician/Gynecologist 5l and Gynecology Procedures full slot [address] [place], [place] [phone] [place] [phone] Phone: Fax: Referral ID Status Reason Start Date Expiration Date Visits Requ ested Visits Authorized [id number] Closed 01/18/2015 01/18/2016 2 2 Encounter Details Date Type Department Care Team Description 02/14/2015 Procedure visit Obstetrics and Pschirrer, E Multigravi da of advanced maternal age, second trimester; Gynecology at [facility] MD Elena Encounter for supervision of other bart l in second trimester [facility] KATIE Rhoades OBSTETRICS & [phone] GYNECOLOGY [phone] [place], [place] [address] Social History Tobacco Use Types [...] - Inhaled Oxygen Concentration - - Weight 68.7 kg (151 lb 8 oz) 02/14/2015 9:36 AM EST Height 167.6 cm (5' 6) 02/14/2015 9:36 AM EST Body Mass Index 24.45 02/14/2015 9:36 AM EST documented in this encounter Progress Notes Nuria Lewis MD - 02/14/2015 3:58 PM EST The case was discussed at the time of the visit or immediately after the visit. The assessment and plan were formulated in discussion with me and I agree with them as documented. I have reviewed the history, physical exam, assessment and plan with the resident. Major issues discussed today: Recalculation of maternal quad screen. Normal morphology ultrasound. Plan: Ms. Dunlap opted for cell-free DNA screening today. Nuria LEWIS MD Guerda Mckeon MD - 02/14/2015 10:36 AM EST Maternal Medicine Consultation Anuradha Dunlap was seen today for diagnosis secondary to advanced maternal age at the request of Nancy Isaac. The patient is a 34 y.o. at 18w3d gestation by US at 10w5d gestation. Anuradha is without related complaints. She was seen today for genetic counseling with Carmen Holbrook LG, ultrasound evaluation, and maternal medicine consultation. Patient feels well today. She has back pain with her advancing gestation. Otherwise endorses active movement and denies cramping / contractions, loss of fluid, vaginal bleeding. The patient had a quad screen performed this ; inadvertantly, intiially, this was submittedwith incorrect dating, which resulted in a incorrectly screen positive. Recalculation withcorrect dating confirmed low risk quad screen result. An ultrasound examination was performed, and a report will be included with this note to the referring provider. The patient appeared well, there are no neurological deficits, she is alert and oriented; The biometry was consistent with prior dating. The placental location and amniotic fluid volume were normal. morphology survey was normal. We reviewed the genetic counseling provided today. Please refer to the note for full details. There are no additional issues that impact today's visit. Patient Active Problem List Diagnosis ??? Supervision of other normal ??? Multigravida of advanced maternal age ??? CIS - right labial cyst OB History Para Term AB TAB SAB Ectopic Multiple Living 2 1 1 1 # Outc Date GA Lbr Ankur/2nd Wgt Sex Del Anes PTL Lv 1 Term 2 Current Family history: No FH of mental retardation, defects, or loss. Second degree paternal relative carrier of cystic fibrosis. Patient's father and sister with Denson syndrome. No additional risk factors were identified. The patient was counseled as to her risk of aneuploidy and the possibility of definitive diagnosis by amniocentesis. We explained that amniocentesis only counts chromosomes and looks for large pieces that are missing or duplicated or rearranged. Amniocentesis will not diagnose cerebral palsy, autism, learning disabilities or single gene defects. The limitations of serum screening and ultrasound in predicting aneuploidy, and risk of loss due to amniocentesis were also discussed. Given a normal morphology scan with adequate imaging of all structures, the patient's risk of aneuploidy is decreased. She chooses to defer amnioc entesis. She desires cell free DNA testing today to further assess her aneuploidy risk. No follow-up examinations are indicated. Thank you for allowing us to participate in the care of your patient. Please do not hesitate to contact the office should further questions arise. Patient was seen and discussed with Dr Lewis, maternal medicine attending physician, with whom the care plan was formulated. GUERDA MCKEON MD, PGY4 02/14/2015 Cc: Nancy Isaac MD [address] [place] [address], with copy of ultrasound report documented in this encounter Plan of Treatment Not on filedocumented as of this encounter Visit Diagnoses Diagnosis Multigravida of advanced maternal age, s econd trimester Encounter for supervision of other bart l in second trimester documented in this encounter Care Teams Human Resources Communications Manager Relationship Specialty Start Date End Date Rosa Martin APRN PCP - General Family Medicine 01/23/15 01/26/20 documented as of this encounter
--- OUTSIDE RECORDS SUMMARY | 2021-10-09 00:22 | XMS_ITS | Encounter Summary ---
:1980 Author Organization [facility] Address [facility] [place] [address] Care Team Providers Name Role Phone Rosa Martin SWATCH CHECKER Primary Care Provider Encounter Details Date Type Department Care Team Description 01/24/2015 Orders Only Obstetrics and Pschirrer, E Maternal age > 35, Gynecology at [facility] [place] Elena multigravida, [facility] uns pec[place] [address] OBSTETRICS & [phone] GYNECOLOGY [place], [place] [address] Social History Tobacco Use Types Packs/Day Years Used Date Never Assessed Sex Assigned at Date Recorded Not on file documented as of this encounter Plan of Treatment Not on filedocumented as of this encounter Results US OB Targeted Morphology [...] agree with janki loaiza above interpretation. ? E R Pschirrer, MD Electronically Signed Final Report ?? 12:17 pm Narrative 02/14/2015 12:18 PM EST OBSTETRICS REPORT ?(Signed Final 02/14/2015 12:17 pm) Patient Info ID #: ? [id number] ?: ??[birth year] (34 yrs) Name: ? ANURADHA Abraham ? Visit Date: 02/14/2015 10:28 am ? ANANYA Performed By Performed By: ? Marley Maynard RDMS Attending: ?Nuria Lewis MD ? ?Elena Referred By: ?JAS MENDEZ MD Service(s) Provided ??[facility] - Targeted Morphology - Genetics - [id number] Indications ??AMA; E - Coordinates with gestational [...] Aortic Arch: ?Visualized Ductal Arch: ?Visualized Cardiac [place]: ? Visualized 3 Vessel View: ?Visualized Diaphragm: [...] 015 12:17 pm) Patient Info ID #: [id number] : [birth year] (34 y rs) Name: ANURADHA Abraham Visit Date: 02/14/2015 10:28 am ANANYA Performed By Performed By: Marley Maynard RDMS Attending: Nuria Lewis MD Referred By: JAS MENDEZ MD Service(s) Provided [facility] - Targeted Morphology - Genetics - [id number] Indications AMA; E - Coordinates with gestational [...] Aortic Arch: Visualized Ductal Arch: Visualized Cardiac [place]: Visualized 3 Vessel View: Visualized Diaphragm: Visualized [...] age > 35, multigravida, unspeci fied trimester Maternal age > 35, multigravida, unspeci fied trimester documented in this encounter Care Teams Folding Machine Operator Relationship Specialty Start Date End Date Rosa Martin, LORNA PCP - General Family Medicine 01/23/15 01/26/20 documented as of this encounter
--- OUTSIDE RECORDS SUMMARY | 2021-10-09 00:23 | XMS_ITS | Encounter Summary ---
:1980 Author Organization [facility] Address [address] [place] [address] Care Team Providers Name Role Phone Unknown, Provider Primary Care Provider Encounter Details Date Type Department Care Team Description 11/13/2019 Lab Requisition [facility] Outr Resulting Lab, Pathology & Laboratory Provider [facility] acute hospital [address] [place] [address] Social History Tobacco Use Types Packs/Day Years Used Date Never Assessed Sex Assigned at Date Recorded Not on file documented as of this encounter Plan of Treatment Not on filedocumented as of this encounter Procedures Procedure Name Priority Date/Time Associated Comments Diagnosis DO NOT ORDER Today 11/13/2019 12:30 Results for this STANDALONE - BROAD EDT procedure are in COVID TEST the results section. COVID-19 TESTING Routine 11/13/2019 12:30 Results for this EDT procedure are i n the results section. documented in this encounter Results DO NOT ORDER STANDALONE - BROAD COVID TEST (11/13/2019 12:30 EDT) COVID-19 rt-PCR NEGATIVE Negative [facility] Result Comment: LABORATORY 2019-novel Coronavirus (2019 -nCoV) not detected by the qRT-PCR assay. Consider testing for other respiratory viruses or re-collecting for 2019-nCoV testing. Note: Optimum timing for peak viral levels du ring infections caused by 20 -nCoV have not been determined. Collection of multiple specimens from the same patient may be necessary to detect the virus. Limitations Positive results are indicat markell of active infection with SARS-CoV-2 but do not rule out bacterial infection or co-infection with other viruses. The agent detected may not be the definite cause of diseas e. In addition, detection of viral RNA may not indicate the presence of infectious virus or that SARS-CoV-2 is the causative agent for clinical symptoms. Negative results do not prec lude SARS-CoV-2 infection and should not be used as the sole basis for patient management decisions. Negative results must be combined with clinical observations, patient his tory, and epidemiological in formation. False negative results may also occur if amplification inhibitors are present in the specimen or if inadequate numbers of organisms are present in the specimen. Op timum specimen types and priscila ing for peak viral levels during infections caused by SARS-CoV-2 have not been fully determined. Collection of multiple specimens (types and time points) from the same patient may be necessary to detect the virus. The test was validated for u se with upper respiratory specimens obtained via nasopharyngeal or oropharyngeal swabs in VTM, UTM, M4, M5, M6, saline, and MTM media. The performance of this test has not be en established for other spe cimens. Specimens collected using other FDA recommended Specimen Collection Materials listed in the FDA COVID-19 [employer] communication (June 17, 2019) are pr ocessed with the caveat that they were not all validated for use with this test and the result must be interpreted in this context. Furthermore, a false negative results may occur if a specimen is improperly collected, transported or handled. If the virus mutates in the RT-PCR target region, SARS-CoV-2 may not be detected or may be detected less predictably. Inhibitors or other types of interference may produce a false negative result. An interference study evaluating the effect of common cold medications was not performed. This test is not FDA-cleared but its performance characteristics were established by our CLIA-certified, CAP-accredited, high complexity laboratory in accordance with CLIA regulations, College of [employer] an [employer]ologists (CAP) guidel haresh (Jun 10, 2019), and FDA guidance (May 22, 2019). This test is only for use un tye the Food and Drug Administration's Emergency Use Authorization. Specimen Swab - Entire nasopharynx (body structur e) Performing Organization Address City/State/ZIP Code Phon e Number [facility] [place], [place] COVID-19 TESTING (11/13/2019 12:30 EDT) COVID-19 rt-PCR NEGATIVE Negative [facility] Result Comment: LABORATORY 2019-novel Coronavirus (2019 -nCoV) not detected by the qRT-PCR assay. Consider testing for other respiratory viruses or re-collecting for 2019-nCoV testing. Note: Optimum timing for peak viral levels du ring infections caused by 20 -nCoV have not been determined. Collection of multiple specimens from the same patient may be necessary to detect the virus. Limitations Positive results are indicat markell of active infection with SARS-CoV-2 but do not rule out bacterial infection or co-infection with other viruses. The agent detected may not be the definite cause of diseas e. In addition, detection of viral RNA may not indicate the presence of infectious virus or that SARS-CoV-2 is the causative agent for clinical symptoms. Negative results do not prec lude SARS-CoV-2 infection and should not be used as the sole basis for patient management decisions. Negative results must be combined with clinical observations, patient his tory, and epidemiological in formation. False negative results may also occur if amplification inhibitors are present in the specimen or if inadequate numbers of organisms are present in the specimen. Op timum specimen types and priscila ing for peak viral levels during infections caused by SARS-CoV-2 have not been fully determined. Collection of multiple specimens (types and time points) from the same patient may be necessary to detect the virus. The test was validated for u with upper respiratory specimens obtained via nasopharyngeal or oropharyngeal swabs in VTM, UTM, M4, M5, M6, saline, and MTM media. The performance of this test has not be en established for other spe cimens. Specimens collected using other FDA recommended Specimen Collection Materials listed in the FDA COVID-19 [employer] communication (June 17, 2019) are pr ocessed with the caveat that they were not all validated for use with this test and the result must be interpreted in this context. Furthermore, a false negative results may occur if a specimen is improperly collected, transported or handled. If the virus mutates in the RT-PCR target region, SARS-CoV-2 may not be detected or may be detected less predictably. Inhibitors or other types of interference may produce a false negative result. An interference study evaluating the effect of common cold medications was not performed. This test is not FDA-cleared but its performance characteristics were established by our CLIA-certified, CAP-accredited, high complexity laboratory in accordance with CLIA regulations, College of [employer] an Pathologists (CAP) guidel haresh (Jun 10, 2019), and FDA guidance (May 22, 2019). This test is only for use un tye the Food and Drug Administration's Emergency Use Authorization. Performing Lab [facility] LABORATORY SERVICES Specimen Swab Performing Organization Address City/State/[facility] Code Phon e Number [facility] [address] [place] [address] SERVICES [facility] [place], [place] documented in this encounter Visit Diagnoses Not on filedocumented in this encounter Care Teams Buckle Sewer Machine Relationship Specialty Start Date End Date Unknown, Provider, PCP - General 02/07/12 documented as of this encounter
--- OUTSIDE RECORDS SUMMARY | 2021-10-09 00:23 | XMS_ITS | Encounter Summary ---
:1980 Author Organization [facility] Address [address] [place] [address] Care Team Providers Name Role Phone Unknown, Provider Primary Care Provider Encounter Details Date Type Department Care Team Description 06/22/2020 Lab Requisition [facility] Outr Resulting Lab, Pathology & Laboratory Provider [facility] [address] [place] [address] Social History Tobacco Use Types Packs/Day Years Used Date Never Assessed Sex Assigned at Date Recorded Not on file documented as of this encounter Plan of Treatment Not on filedocumented as of this encounter Procedures Procedure Name Priority Date/Time Associated Comments Diagnosis CHLAMYDIA/N. Routine 06/22/2020 15:15 Results for this GONORRHOEAE AMPLIFIED EDT proced ure are in RNA, THINPREP the results section. documented in this encounter Results CHLAMYDIA/N. GONORRHOEAE AMPLIFIED RNA, THINPREP (06/22/2020 15:15 EDT) Pathologist Sig nature Gonococcus Result Negative Negative [facility] SERVICES Chlamydia Result Negative Negative [facility] SERVICES Specimen Pap Test - Cervix and/or Endocervix Performing Organization Address City/State/ZIP Code Phon e Number [facility] [address] [place] [address] SERVICES documented in this encounter Visit Diagnoses Not on filedocumented in this encounter Care Teams Test Administrator Relationship Specialty Start Date End Date Unknown, Provider, PCP - General 02/07/12 documented as of this encounter
--- OUTSIDE RECORDS SUMMARY | 2021-10-09 00:23 | XMS_ITS | Encounter Summary ---
:1980 Author Organization [facility] Address [address] [place] [address] Care Team Providers Name Role Phone Unknown, Provider Primary Care Provider Encounter Details Date Type Department Care Team Description 07/11/2020 Lab Requisition [facility] Outr Resulting Lab, Pathology & Laboratory Provider [facility] [address] [place] [address] Social History Tobacco Use Types Packs/Day Years Used Date Never Assessed Sex Assigned at Date Recorded Not on file documented as of this encounter Plan of Treatment Not on filedocumented as of this encounter Procedures Procedure Name Priority Date/Time Associated Diagnosis Comme nts COVID-19 TEST [facility] Today 07/11/2020 10:16 LAB PCR EDT COVID-19 TESTING Routine 07/11/2020 10:16 Results for this EDT procedure are i n the results section. documented in this encounter Results COVID-19 TEST [facility] LAB PCR (07/11/2020 10:16 EDT) Specimen Swab - Entire nasopharynx (body structur e) Performing Organization Address City/State/ZIP Code Phon e Number [facility] [address] [place] [address] SERVICES COVID-19 TESTING (07/11/2020 10:16 EDT) COVID-19 rt-PCR Negative Negative [facility] Result Comment: CENTER LABORATORY This test has not been FDA c leared or approved. This test has been authorized by FDA under an EUA for use by authorized laboratories. This test has been authorized only for detection of nucleic acid fro SERVICES m 2019-nCoV, not for any oth er viruses or pathogens. This test is only authorized for the duration of the declaration that circumstances exist justifying the authorization of emergency use of in vitro d iagnostic tests for detectio n and/or diagnosis of 2019-nCoV under section 564(b)(1) of Act, 21 U.S.C ?? 360bbb-3(b) (1), unless the authorization is terminated or revoked sooner. Negative results do not prec lude 2019-nCoV infection and should not be used as the sole basis for treatment or other patient management decisions. Negative results must be combined with clinical observa tions, patient history, and epidemiological informatio n. Performed on the [employer] Fusion instrument Performing Lab [place] [facility] Lab [facility] SERVICES Specimen Swab Performing Organization Address City/State/ZIP Code Phon e Number [facility] [address] [place] [address] SERVICES documented in this encounter Visit Diagnoses Not on filedocumented in this encounter Care Teams Special Warfare Boat Operator Relationship Specialty Start Date End Date Unknown, Provider, PCP - General 02/07/12 documented as of this encounter
--- OUTSIDE RECORDS SUMMARY | 2021-10-09 00:23 | XMS_ITS | Encounter Summary ---
:1980 Author Organization [facility] Address [address] [place] [address] Care Team Providers Name Role Phone Unknown, Provider Primary Care Provider Encounter Details Date Type Department Care Team Description 03/26/2021 Lab Requisition [facility] Outr Resulting Lab, Pathology & Laboratory Provider [facility] [address] [place] [address] Social History Tobacco Use Types Packs/Day Years Used Date Never Assessed Sex Assigned at Date Recorded Not on file documented as of this encounter Plan of Treatment Not on filedocumented as of this encounter Procedures Procedure Name Priority Date/Time Associated Diagnosis Comme nts COVID-19 TEST [facility] Today 03/26/2021 8:30 EST LAB PCR COVID-19 TESTING Routine 03/26/2021 8:30 EST Resu lts for this procedure are i n the results section. documented in this encounter Results COVID-19 TEST [facility] LAB PCR (03/26/2021 8:30 EST) Specimen Swab Performing Organization Address City/State/ZIP Code Phon e Number [facility] [address] [place] [address] SERVICES COVID-19 TESTING (03/26/2021 8:30 EST) COVID-19 rt-PCR Negative Negative [facility] Result Comment: CENTER LABORATORY This test has not been FDA c leared or approved. This test has been authorized by FDA under an EUA for use by authorized laboratories. This test has been authorized only for detection of nucleic acid fro SERVICES m 2018-nCo, not for any oth er viruses or [...] and epidemiological informatio n. Performed on the [employer] Fusion instrument Performing Lab [place] [facility] Lab [facility] SERVICES Specimen Swab Performing Organization Address City/State/ZIP Code Phon e Number [facility] [address] [place] [address] SERVICES documented in this encounter Visit Diagnoses Not on filedocumented in this encounter Care Teams Braille Teacher Relationship Specialty Start Date End Date Unknown, Provider, PCP - General 02/07/12 documented as of this encounter
--- OUTSIDE RECORDS SUMMARY | 2021-10-09 00:23 | XMS_ITS | Encounter Summary ---
:1980 Author Organization [facility] Address [address] [place] [address] Care Team Providers Name Role Phone Unknown, Provider Primary Care Provider Encounter Details Date Type Department Care Team Description 02/06/2012 Results Only [facility] Fernando Watts, [facility] - [place], [place] [address] [facility] [id number] [place] [address] [phone] Social History Tobacco Use Types Packs/Day Years Used Date Never Assessed Sex Assigned at Date Recorded Not on file documented as of this encounter Plan of Treatment Not on filedocumented as of this encounter Procedures Procedure Name Priority Date/Time Associated Diagnosis Comme nts PAP TEST- RESULT Routine 02/06/2012 0:00 EST Resu lts for this ONLY procedure are i n the results section. documented in this encounter Results PAP TEST- RESULT ONLY (02/06/2012 0:00 EST) Pathology Report: CYTOPATHOLOGY REPORT [facility] Reports generated via electronic interface contain cynthia ginal data; however they are lacking the format of the original re port. Caution should be taken when reading/interpreting unfo rmatted reports. Name: ? ANURADHA DUNLAP ? Accession #: ? [id number] ? : ? 1980 (Age: 31) ??F ?Collect Da te: ? 02/06/2012 ? Location: ? [facility] ? Receive Date: ? 012 ? Provider: KEVIN WATTS CNM Copy to: ? Final Report SPECIMEN ADEQUACY ? Satisfactory for Evaluation - assessment of transformation zone component not appl icable ( e.g. atrophy, vaginal sample, hysterectomy) - scant squamous epithelial component secondary to exc essive blood GENERAL CATEGORIZATION ? Negative for Intraepithelial Lesion or Malignan cy ?? Last Menstural Period: 04/02/2011 Menstural/ Status: ??Post Specimen/Source: ??Pap Test, Cervix/Endocervix, ThinPr ep Imaging System with manual evaluation Document reviewed and electronically signed by: ? Chioma Shah, CT(ASCP) ? Report ??Date: 02/19/2012 08:08 HPV with Pap Test ? Date Ordered: ? 02/19/2012 ? Status: ?? Signed Out ?Date Complete: ? 02/21/2012 ? By: ??S ystem Interface ? Date Reported: ? 02/21/2012 ? Interpretation RESULT: Negative for HPV. No E6 or E7 mRNA is detected from HPV types 16,18,31,3 3,35, 39,45,51,52,56,58,59,66, and 68 by biomedical engineering supervisor media eden amplification. Comments Document reviewed and electronically signed by: ? System Interface ? Report date: 02/21/2012 By the signature above, the attending physician certif ies that he/she has personally conducted a gross and/or microscopic examin ation of the described specimens and rendered or confirmed the above diagnosi s. End of Report Specimen Performing Organization Address [facility]/State/ZIP Code Phon e Number [facility] [address] [place] [address] SERVICES [facility] [address] [place] [address] documented in this encounter Visit Diagnoses Not on filedocumented in this encounter Care Teams Optical Glass Inspector Relationship Specialty Start Date End Date Unknown, Provider, PCP - General 02/07/12 documented as of this encounter
--- OUTSIDE RECORDS SUMMARY | 2021-10-09 00:23 | XMS_ITS | Encounter Summary ---
:1980 Author Organization [facility] Address [address] [place] [address] Care Team Providers Name Role Phone Unknown, Provider Primary Care Provider Encounter Details Date Type Department Care Team Description 05/28/2017 Results Only [facility] Anastasiia Alberto, RIVETING MACHINE OPERATOR [phone] [address] [place] [address] Social History Tobacco Use Types Packs/Day Years Used Date Never Assessed Sex Assigned at Date Recorded Not on file documented as of this encounter Plan of Treatment Not on filedocumented as of this encounter Procedures Procedure Name Priority Date/Time Associated Diagnosis Comme nts PAP TEST- RESULT Routine 05/28/2017 0:00 EST Resu lts for this ONLY procedure are i n the results section. documented in this encounter Results PAP TEST- RESULT ONLY (05/28/2017 0:00 EST) Pathology Report: CYTOPATHOLOGY REPORT [facility] Reports generated via electronic interface contain cynthia ginal data; SERVICES however they are lacking the format of the original re port. Caution should be taken when reading/interpreting unfo rmatted reports. Name: ? ANURADHA DUNLAP ? Accession #: ? [id number] ? : ? 1980 (Age: 37 ) ??F ?Collect Date: ? 2017 ? Location: ? [facility] ? Receive Date: ? 8 ? Provider: ANASTASIIA WESTON RIVETING MACHINE OPERATOR Copy to: CARMELA HAYS VP COMMUNICATIONS ? Final Report SPECIMEN ADEQUACY ? Satisfactory for Evaluation - transformation zone component present GENERAL CATEGORIZATION ? Negative for Intraepithelial Lesion or Malignan cy ?? Last Menstrual Period: 05/22/17 Specimen/Source: ??Pap Test, Cervix, ThinPrep Imaging System with manual evaluation Document reviewed and electronically signed by: ? Chioma Shah, CT(ASCP) ? Report ??Date: 06/05/2017 14:44 HPV with Pap Test ? Date Ordered: ? 06/05/2017 ? Status: ?? Signed Out ?Date Complete: ? 06/06/2017 ? By: ??Sy stem Interface ? Date Reported: ? 06/06/2017 ? Interpretation RESULT: Negative for HPV. No E6 or E7 mRNA is detected from HPV types 16,18,31,3 3,35, 39,45,51,52,56,58,59,66, and 68 by survey associate media eden amplification. Comments Document reviewed and electronically signed by: ? System Interface ? Report date: 06/06/2017 By the signature above, the attending physician certif ies that he/she has personally conducted a gross and/or microscopic examin ation of the described specimens and rendered or confirmed the above diagnosi s. End of Report Specimen Performing Organization Address City/State/ZIP Code Phon e Number [facility] [address] [place] [address] SERVICES documented in this encounter Visit Diagnoses Not on filedocumented in this encounter Care Teams Wildlife Control Agent Relationship Specialty Start Date End Date Unknown, Provider, PCP - General 02/07/12 documented as of this encounter
--- OUTSIDE RECORDS SUMMARY | 2021-10-09 00:23 | XMS_ITS | Encounter Summary ---
:1980 Author Organization [facility] Address [address] [place] [address] Care Team Providers Name Role Phone Unknown, Provider Primary Care Provider Encounter Details Date Type Department Care Team Description 04/17/2021 Lab Requisition [facility] Outr Resulting Lab, Pathology & Laboratory Provider [facility] [address] [place] [address] Social History Tobacco Use Types Packs/Day Years Used Date Never Assessed Sex Assigned at Date Recorded Not on file documented as of this encounter Plan of Treatment Not on filedocumented as of this encounter Procedures Procedure Name Priority Date/Time Associated Diagnosis Comme nts [facility] Today 04/17/2021 9:15 EST LAB PCR COVID-19 TESTING Routine 04/17/2021 9:15 EST Resu lts for this procedure are i n the results section. documented in this encounter Results COVID-19 TEST [facility] PCR (04/17/2021 9:15 EST) Specimen Swab Performing Organization Address City/State/ZIP Code Phon e Number [facility] [address] [place] [address] SERVICES COVID-19 TESTING (04/17/2021 9:15 EST) COVID-19 rt-PCR Negative Negative [facility] Result Comment: CENTER LABORATORY This test has not been FDA c leared or approved. This test has been authorized by FDA under an EUA for use by authorized laboratories. This test has been authorized only for detection of nucleic acid fro SERVICES m 2019-nCo, not for any oth er viruses or [...] and epidemiological informatio n. Performed on the [employer] Fusion instrument Performing Lab [place] [facility] SERVICES Specimen Swab Performing Organization Address City/State/ZIP Code Phon e Number [facility] [address] [place] [address] SERVICES documented in this encounter Visit Diagnoses Not on filedocumented in this encounter Care Teams Telephone Service Adviser Relationship Specialty Start Date End Date Unknown, Provider, PCP - General 02/07/12 documented as of this encounter
--- OUTSIDE RECORDS SUMMARY | 2021-10-09 00:23 | XMS_ITS | Encounter Summary ---
:1980 Author Organization [facility] Address [address] [place] [address] Care Team Providers Name Role Phone Unknown, Provider Primary Care Provider Encounter Details Date Type Department Care Team Description 06/23/2020 Lab Requisition [facility] Maddy Ureña Encounter for other Pathology & [address] [place] [address] general examination Laboratory Medicine [facility] [id number] [address] [facility] [phone] [place] [address] (Work) [phone] Social History Tobacco Use Types Packs/Day Years Used Date Never Assessed Sex Assigned at Date Recorded Not on file documented as of this encounter Plan of Treatment Not on filedocumented as of this encounter Procedures Procedure Name Priority Date/Time Associated Comments Diagnosis PAP TEST Today 06/22/2020 15:15 Encounter for other Resu lts for this EDT general examination procedur e are in the results section. HUMAN PAPILLOMAVIRUS Today 06/22/2020 15:15 Encounter for ot her Results for this (HPV) DETECTION-HIGH EDT general examination procedure are in RISK TYPES the results section. documented in this encounter Results HUMAN PAPILLOMAVIRUS (HPV) DETECTION-HIGH RISK TYPES (06/22/2020 15:15 EDT) Human Papillomavirus NegativeComment: No Negative [facility] (HPV) Detection-High E6 or E7 mRNA is CENTER LABORATOR Y Types detected from HPV SERVICES types 16,18,31,33,35,39,45 ,51,52,56,58,59,66, and 68 by inspector balance bridge mediated amplification. Specimen Pap Test - Cervix and/or Endocervix Performing Organization Address City/State/ZIP Code Phon e Number [facility] [address] [place] [address] SERVICES PAP TEST (06/22/2020 15:15 EDT) Specimens A. Cervix and/or [facility] Endocervix , ThinPrep CENTER Imaging System with LABORATORY Manual Evaluation SERVICES Specimen Adequacy Satisfactory for [facility] Evaluation - CENTER transformation zone LABORATORY component present SERVICES General Negative for [facility] intraepithelial [place] lesion or malignancy LABORATORY SERVICES Attestation . [facility] Electronically CENTER signed by EEVR Lopez CT(ASCP ) on SERVICES 06/30/2020 at 151 5 Clinical History See below [facility] SERVICES HPV The result for the Human Pap illomavirus (HPV) Detection-High Risk Types is Negative. No E6 or E7 mRNA is detected from HPV types 16,18,31,33,35,39,45,51,52,56,58,59,66, and 68 by inspector balance bridge mediated [facility] amplification.Testing was pe rformed on specimen [id number] and was resulted on 06/30/2020 1513 EDT by BRYANNA, LAB INSTRUMENT RESULTS IN [facility] SERVICES Performing Lab [facility] SERVICES Scanned Images [facility] SERVICES Specimen Pap Test - Cervix and/or Endocervix Performing Organization Address City/State/ZIP Code Phon e Number [facility] [address] [place] [address] SERVICES documented in this encounter Visit Diagnoses Diagnosis Encounter for other general examination documented in this encounter Care Teams Associate Professor Of Engineering Relationship Specialty Start Date End Date Unknown, Provider, PCP - General 02/07/12 documented as of this encounter
--- OUTSIDE RECORDS SUMMARY | 2021-10-09 00:23 | XMS_ITS | Encounter Summary ---
:1980 Author Organization [facility] Address [address] [place] [address] Care Team Providers Name Role Phone Unavailable Primary Care Provider Unavailable Encounter Details Date Type Department Care Team Description 07/04/2009 Results Only [facility] Jose Bailey MD Laboratory Services - [facility] [address] [place] [address] [place] [address] [phone] Social History Tobacco Use Types Packs/Day Years Used Date Never Assessed Sex Assigned at Date Recorded Not on file documented as of this encounter Plan of Treatment Not on filedocumented as of this encounter Procedures Procedure Name Priority Date/Time Associated Comments Diagnosis HPV DETECTION, HIGH Routine 07/04/2009 9:58 Resul ts for this RISK TYPES EDT procedure are i n the results section. CYTOPATHOLOGY Routine 07/04/2009 0:00 Results for this EDT procedure are i n the results section. documented in this encounter Results HUMAN PAPILLOMA VIRUS DNA TEST (07/04/2009 9:58 EDT) Specimen Description Cervix, ThinPrep [facility] vial Result Negative for HPV [facility] types 16, 18, 31, 33, 35, 39, 45, 51, 52, 56, 58, 59, and 68. Report Status Final [facility] 07/13/2009 Specimen Performing Organization Address City/State/ZIP Code Phon e Number [facility] [address] [place] [address] SERVICES [facility] [address] [place] [address] CYTOPATHOLOGY (07/04/2009 0:00 EDT) Pathology Report: CYTOPATHOLOGY REPORT ? BRAN ALL EN ? LAB Reports generated via elect[employer] interface contain original data; ? however they are lacking the format of the original report. ? Caution should be taken when reading/interpreting unformatted reports. ? Name: ? ANURADHA DUARTE ? Accession #: ? [id number] ? : ? 1980 (Age: 29) ??F ?Collect Date: ? 07/04/2009 ? Location: ? [facility] ? Receive Date: ? 07/05/2009 ? Provider: ?JOSE READY MD ? Copy to: ? Specimen/Source: ? Pap Test, Cervix/Endocervix, ThinPrep Imaging System ? with manual evaluation ? Last Menstrual Period: ? 3/1/10 ? Other: ? HPVDX - HPV testing requeste d regardless of diagnosis on current ThinPrep Pap ?? test. ? SPECIMEN ADEQUACY ? Satisfactory for Eval uation ? - transformation zone compon ent present ? GENERAL CATEGORIZATION ? Negative for Intraepi thelial Lesion or Malignancy ? Document reviewed and electr onically signed by: ? Nico N. Phil, CT (ASCP) ? Report Date: ??04/20/ 2010 13:04 ? End of Report ? Specimen Performing Organization Address City/State/ZIP Code Phon e Number [facility] [address] [place] [address] SERVICES [facility] [address] [place] [address] documented in this encounter Visit Diagnoses Not on filedocumented in this encounter
--- OUTSIDE RECORDS SUMMARY | 2021-10-09 00:23 | XMS_ITS | Encounter Summary ---
:1980 Author Organization [facility] Address [address] [place] [address] Care Team Providers Name Role Phone Unknown, Provider Primary Care Provider Encounter Details Date Type Department Care Team Description 04/02/[address] [facility] Outr Resulting Lab, Pathology & Laboratory Provider [facility] [address] [place] [address] Social History Tobacco Use Types Packs/Day Years Used Date Never Assessed Sex Assigned at Date Recorded Not on file documented as of this encounter Plan of Treatment Not on filedocumented as of this encounter Procedures Procedure Name Priority Date/Time Associated Diagnosis Comme nts COVID-19 TEST [facility] Today 04/02/2021 8:32 EST LAB PCR COVID-19 TESTING Routine 04/02/2021 8:32 EST Resu lts for this procedure are i n the results section. documented in this encounter Results COVID-19 TEST [facility] LAB PCR (04/02/2021 8:32 EST) Specimen Swab Performing Organization Address City/State/ZIP Code Phon e Number [facility] [address] [place] [address] SERVICES COVID-19 TESTING (04/02/2021 8:32 EST) COVID-19 rt-PCR Negative Negative [facility] Result Comment: CENTER LABORATORY This test [...] and epidemiological informatio n. Performed on the [employer] Fusion instrument Performing Lab [place] [facility] Lab [facility] SERVICES Specimen Swab Performing Organization Address City/State/ZIP Code Phon e Number [facility] [address] [place] [address] SERVICES documented in this encounter Visit Diagnoses Not on filedocumented in this encounter Care Teams Chiropractor Assistant Relationship Specialty Start Date End Date Unknown, Provider, PCP - General 02/07/12 documented as of this encounter
--- OUTSIDE RECORDS SUMMARY | 2021-10-09 00:23 | XMS_ITS | Encounter Summary ---
:1980 Author Organization [facility] Address [address] [place] [address] Care Team Providers Name Role Phone Unknown, Provider Primary Care Provider Encounter Details Date Type Department Care Team Description 11/22/2015 Results Only [facility] Jas Isaac MD [phone] [place] [address] Social History Tobacco Use Types Packs/Day Years Used Date Never Assessed Sex Assigned at Date Recorded Not on file documented as of this encounter Plan of Treatment Not on filedocumented as of this encounter Procedures Procedure Name Priority Date/Time Associated Diagnosis Comme nts PAP TEST- RESULT Routine 11/22/2015 0:00 EDT Resu lts for this ONLY procedure are i n the results section. documented in this encounter Results PAP TEST- RESULT ONLY (11/22/2015 0:00 EDT) Pathology Report: CYTOPATHOLOGY REPORT [facility] Reports generated via electronic interface contain cynthia ginal data; SERVICES however they are lacking the format of the original re port. Caution should be taken when reading/interpreting unfo rmatted reports. Name: ? ANURADHA DUNLAP ? Accession #: ? [id number] ? : ? 1980 (Age: 35 ) ??F ?Collect Date: ? 11/22/2015 ? Location: ? [facility] ? Receive Date: ? 6 ? Provider: JAS ISAAC MD Copy to: CARMELA HAYS LOAN ANALYST ? Final Report SPECIMEN ADEQUACY ? Satisfactory for Evaluation - transformation zone component present GENERAL CATEGORIZATION ? Negative for Intraepithelial Lesion or Malignan cy ?? Other: Additional clinical information: last pap 2011 Neg/Neg Specimen/Source: ??Pap Test, Cervix/Endocervix, ThinPr ep Imaging System with manual evaluation Document reviewed and electronically signed by: ? Jana Stevenson, CT(ASCP)(IAC) ? Report ??Date: 11/28/2015 16:06 HPV with Pap Test ? Date Ordered: ? 11/28/2015 ? Status: ?? S igned Out ?Date Complete: ? 11/29/2015 ? By: ??Sys tem Interface ? Date Reported: ? 11/29/2015 ? Interpretation RESULT: Negative for HPV. No E6 or E7 mRNA is detected from HPV types 16,18,31,3 3,35, 39,45,51,52,56,58,59,66, and 68 by senior national account manager media [place] amplification. Comments Document reviewed and electronically signed by: ? System Interface ? Report date: 11/29/2015 By the signature above, the attending physician certif ies that he/she has personally conducted a gross and/or microscopic examin ation of the described specimens and rendered or confirmed the above diagnosi s. End of Report Specimen Performing Organization Address City/State/ZIP Code Phon e Number [facility] [address] [place] [address] SERVICES documented in this encounter Visit Diagnoses Not on filedocumented in this encounter Care Teams Machine Erector Relationship Specialty Start Date End Date Unknown, Provider, PCP - General 02/07/12 documented as of this encounter
--- OUTSIDE RECORDS SUMMARY | 2021-10-09 00:23 | XMS_ITS | Clinical Summary ---
:[address] [facility] Address [address] [place] [address] Care Team Providers Name Role Phone Unknown, Provider Primary Care Provider Social History Tobacco Use Types Packs/Day Years Used Date Never Assessed Sex Assigned at Date Recorded Not on file Plan of Treatment Not on file Care Teams Head Swamper Relationship Specialty Start Date End Date Unknown, Provider, PCP - General 02/07/12
--- NOTE | 2021-10-09 07:30 | DI.MRI_ITS ---
Exam(s) MR LUMBAR SPINE WO EXAM: MR LUMBAR SPINE WO CLINICAL HISTORY: LBP w/ L radiculopathy. Occas. intense coccyx pain, radiating to lt leg. TECHNIQUE: Multiplanar multisequence MRI of the Lumbar spine was performed. COMPARISON: MR MR LUMBAR SPINE WO from 02/01/2019 FINDINGS: Conus medullaris is at normal level. There is no evidence of conus mass nor subjacent clumping of in trathecal nerve roots to suggest arachnoiditis. The distal thecal sac appears unremarkable.There is no evidence of Tarlov intrasacral cysts nor other significant findings within the sacral canal Bones:There are no fractures nor ominous osseous lesions in the lumbar vertebral bodies and visualize d sacrum. With respect to the individual levels... T12-L1: Unremarkable L1-2: Normal disc height and signal. No disc herniation nor central canal stenosis.No foraminal steno sis L2-3: Normal disc height. No disc herniation nor central canal stenosis.No foraminal stenosis.No face t arthropathy. L3-4: Normal disc height. No disc herniation or central canal stenosis.No foraminal stenosis.No face t arthropathy. L4-5: Normal disc height and signal. Minimal annular bulging lateral right, unchanged. No new disc herniation. No central canal stenosis. No foraminal stenosis. No facet arthropathy. L5-S1: Normal disc height and signal. No disc herniation. No canal stenosis. No foraminal stenosis . No facet arthropathy. Soft tissues: paraspinal soft tissues appear unremarkable. IMPRESSION: 1. No significant findings on this MRI scan of the lumbosacral spine and no significant change compar ed to the prior MRI study of January 2019. DATA REPOSITORY:
== END ==
PROVIDERS: PCP Nurse Practitioner; Visit Provider Nurse Practitioner Family
DX: M53.3 Sacrococcygeal disorders, not elsewhere classified; M54.16 Radiculopathy, lumbar region
CPT/HCPCS: 72148

== ENCOUNTER → 2022-01-30 02:08 | Outpatient (CLI) | payer OTHER, SELFPAY ==
--- NOTE | 2022-01-30 07:30 | DI.MAMMO_ITS ---
Exam(s) MAMMO SCREENING EXAM: MAMMO SCREENING CLINICAL HISTORY: screening,z12.39 TECHNIQUE: Bilateral full field digital CC and MLO mammographic images were obtained with 3D tomosyn thesis and utilizing computer aided detection (CAD). COMPARISON: Available for comparison. FINDINGS: Masses/Architectural Distortion: None seen. Microcalcifications: No suspicious pleomorphic-type are seen. Skin Thickening/Nipple Retraction: None. IMPRESSION: 1. No significant interval change with no specific features of malignancy noted. 2. Unless there is more urgent need, screening mammography is recommended, as per [place] [employer] guidelines. BI-RADS Category 1 - Negative Breast Density - Category C - Heterogeneously dense Breast density category C or D implies that the patient has dense breast tissue. Dense breast tissue is very common and is not abnormal but dense breast tissue can make it harder to find cancer on a ma mmogram. Also, dense breast tissue may increase their breast cancer risk. This information about the result of the mammogram report was provided to the patient to raise their awareness. Use this report when you speak with the patient about their risks for breast cancer, which includes their family hist ory. At that time, you may recommend for more screening tests (Ultrasound or MRI) as they might be us eful based on their risk. A negative radiographic report should not delay biopsy if a dominant or clinically suspicious mass is present. Up to ten percent of cancers are not identified on mammography. A negative report may reinforce clinical impression. Adenosis and dense breasts may obscure an underlying neoplasm. False positive reports average 6 to 10%. Patient will receive a letter notifying them of these results.
== END ==
PROVIDERS: PCP Nurse Practitioner Family; Visit Provider Obstetrics & Gynecology
DX: Z12.31 Encounter for screening mammogram for malignant neoplasm of breast (principal)
CPT/HCPCS: 77063; 77067

== ENCOUNTER 2022-08-30 17:14 | Outpatient (CLI) | payer OTHER, SELFPAY ==
--- NOTE | 2022-08-30 14:36 | DI.RAD_ITS ---
Exam(s) XR SHOULDER LT COMPLETE 2+V EXAM: XR SHOULDER LT COMPLETE 2+V CLINICAL HISTORY: lt shoulder pain,m25.512. TECHNIQUE: 2D digital imaging was performed of the left shoulder. Four images were obtained. AP, G rashey, Y-view and axillary views were obtained. COMPARISON: No exams were available for comparison FINDINGS: BONES: No acute fracture is present. No bony destructive lesion is seen. JOINTS: No dislocation present. SOFT TISSUE: Normal. IMPRESSION: Unremarkable radiographs of the left shoulder. DATA REPOSITORY: RADIATION DOSE DELIVERED:
== END 2022-08-30 17:34 ==
LOC: DI 17:14
PROVIDERS: PCP Nurse Practitioner Family; Visit Provider Student in an Organized Health Care Education/Training Program
DX: M25.512 Pain in left shoulder (principal)
CPT/HCPCS: 73030

== ENCOUNTER 2022-11-20 13:07 | Outpatient (REF) | payer OTHER, SELFPAY | END 2022-11-20 13:08 | disposition home or self-care (01) | LOC: LBN 13:07 | PROVIDERS: PCP Nurse Practitioner Family; Visit Provider Obstetrics & Gynecology | DX: N89.8 Other specified noninflammatory disorders of vagina (principal); N76.0 Acute vaginitis | CPT/HCPCS: 87480; 87510; 87660 ==

== ENCOUNTER 2022-11-26 14:51 | Outpatient (REF) | payer OTHER, SELFPAY ==
[2022-11-27 13:55] LABS: HSV 1 DNA Result Negative (Negative); HSV 2 DNA Result Negative (Negative)
== END 2022-11-26 14:52 | disposition home or self-care (01) ==
LOC: LBN 14:51
PROVIDERS: PCP Nurse Practitioner Family; Visit Provider Obstetrics & Gynecology
DX: N90.89 Other specified noninflammatory disorders of vulva and perineum (principal); Z11.59 Encounter for screening for other viral diseases
CPT/HCPCS: 87529

== ENCOUNTER 2022-11-26 15:59 | Outpatient (CLI) | payer OTHER, SELFPAY ==
[2022-11-27 10:26] LABS: HSV Type 1 Ab, IgG Positive (Negative); HSV Type 2 Ab, IgG Negative (Negative)
== END 2022-11-26 16:00 | disposition home or self-care (01) ==
LOC: LBO 16:00
PROVIDERS: PCP Nurse Practitioner Family; Visit Provider Obstetrics & Gynecology
DX: N90.89 Other specified noninflammatory disorders of vulva and perineum (principal)
CPT/HCPCS: 36415; 87529; 86695; 86696

== ENCOUNTER → 2023-02-21 00:51 | Outpatient (CLI) | payer OTHER, SELFPAY ==
--- NOTE | 2023-02-21 08:00 | DI.MAMMO_ITS ---
Exam(s) MAMMO SCREENING EXAM: MAMMO SCREENING CLINICAL HISTORY: screening,z12.39 TECHNIQUE: Bilateral full field digital CC and MLO mammographic images were obtained with 3D tomosyn thesis and utilizing computer aided detection (CAD). COMPARISON: Available for comparison. FINDINGS: Masses/Architectural Distortion: None seen. Microcalcifications: No suspicious pleomorphic-type are seen. Skin Thickening/Nipple Retraction: None. IMPRESSION: 1. No significant interval change with no specific features of malignancy noted. 2. Unless there is more urgent need, screening mammography is recommended, as per [place] [employer] guidelines. BI-RADS Category 1 - Negative Breast Density - Category C - Heterogeneously dense Breast density category C or D implies that the patient has dense breast tissue. Dense breast tissue is very common and is not abnormal but dense breast tissue can make it harder to find cancer on a ma mmogram. Also, dense breast tissue may increase their breast cancer risk. This information about the result of the mammogram report was provided to the patient to raise their awareness. Use this report when you speak with the patient about their risks for breast cancer, which includes their family hist ory. At that time, you may recommend for more screening tests (Ultrasound or MRI) as they might be us eful based on their risk. A negative radiographic report should not delay biopsy if a dominant or clinically suspicious mass is present. Up to ten percent of cancers are not identified on mammography. A negative report may reinforce clinical impression. Adenosis and dense breasts may obscure an underlying neoplasm. False positive reports average 6 to 10%. Patient will receive a letter notifying them of these results.
== END ==
PROVIDERS: PCP Nurse Practitioner Family; Visit Provider Obstetrics & Gynecology
DX: Z12.31 Encounter for screening mammogram for malignant neoplasm of breast (principal)
CPT/HCPCS: 77063; 77067

== ENCOUNTER 2023-02-25 11:39 | Outpatient (REF) | payer OTHER, SELFPAY ==
[2023-02-25 12:23] LABS: Source Nasal/Nares
[2023-02-25 13:03] LABS: COVID-19 PCR POSITIVE (Negative)
== END 2023-02-25 11:40 | disposition home or self-care (01) ==
LOC: LBN 11:39
PROVIDERS: PCP Nurse Practitioner Family; Visit Provider Family Medicine
DX: Z11.52 Encounter for screening for COVID-19 (principal)
CPT/HCPCS: 87635

== ENCOUNTER 2023-06-12 13:31 | Outpatient (CLI) | payer OTHER, SELFPAY ==
[2023-06-12 14:24] LABS: Hemoglobin A1C 5.2 % (<5.7)
[2023-06-12 14:56] LABS: TSH (W/Ref FT4) 1.14 uIU/mL (0.36-3.74)
[2023-06-12 15:03] LABS: C-Reactive Protein < 0.50 mg/dL (<or=0.5)
[2023-06-12 15:40] LABS: Vitamin D 25 Total 41.5 ng/mL (30-100)
[2023-06-13 14:33] LABS: IgA 252 mg/dL (85-499); Interpretation (See Note); Tissue Transglutaminase IgA 59.7 CU (<20.0)
== END 2023-06-12 13:32 | disposition home or self-care (01) ==
LOC: LBO 13:33
PROVIDERS: PCP Nurse Practitioner Family; Visit Provider Nurse Practitioner Family
DX: D64.9 Anemia, unspecified (principal); E86.1 Hypovolemia; N92.6 Irregular menstruation, unspecified; R63.5 Abnormal weight gain; R53.83 Other fatigue; Z00.00 Encounter for general adult medical examination without abnormal findings; R11.2 Nausea with vomiting, unspecified; Z83.79 Family history of other diseases of the digestive system
CPT/HCPCS: 36415; 82306; 82784; 83516; 83036; 84443; 86140

== ENCOUNTER 2023-07-21 06:16 | Day surgery (SDC) | payer OTHER, SELFPAY ==
--- NOTE | 2023-07-20 15:27 | W.PREOPHP ---
Assessment and Plan Assessment and plan (1) Family history of celiac disease: Status: Acute Assessment and plan: We reviewed the plan for EGD with diagnostic biopsies, as well as the risks and benefits of the procedure. She provided consent, we can proceed as planned History of Present Illness History of Present Illness Chief Complaint: Celiac disease Narrative: She is 43 years old, she experiences intermittent mid epigastric abdominal discomfort, and is known to have some history of anemia. She underwent serum tissue transglutaminase testing, which was intermediate. She is here for EGD with diagnostic biopsies [facility] All Active Problems Encounter for screening colonoscopy (Acute) Family history of celiac disease (Acute) Vulvar irritation (Acute) Piriformis syndrome of left side (Acute) Encounter for screening for other viral diseases (Acute) Low back pain radiating to left leg (Acute) Colon polyp, hyperplastic (Acute) Irregular menses (Acute) Hypotension (Acute) Anemia (Acute) Medical History Other general counseling and advice for contraceptive management Gastritis 03/29/2019- endoscopy, mild gastritis, no other concerning findings Dehydration, moderate Hypotension Nausea and vomiting in adult Enteritis Encounter for supervision of other normal , third trimester (04/19/15) Hyperemesis gravidarum before end of 22 week gestation with carbohydrate depletion (12/22/14) care and examination of lactating mother (10/06/12) Supervision of other high risk pregnancies, first trimester (12/22/14) Nausea and vomiting during (06/01/15) Surgical History History of colonoscopy (~03/29/19) 2008- nl Family History Mother Essential hypertension Father , 73 Essential hypertension Heart disease Aortic stenosis, CABG with valve in 2014 Alcohol abuse Colon cancer hemicolectomy Sister Substance abuse Maternal Grandfather No problems noted. Paternal Grandfather , MVA 1986 No problems noted. Maternal Grandmother Breast cancer Paternal Grandmother Colorectal cancer Daughter No problems noted. Daughter No problems noted. Social History Smoking/Tobacco Use Status: Never Second Hand Exposure: Yes Smoking risk assessment performed?: Yes Alcohol Intake: current Alcohol Intake frequency: a few times a week Alcohol type: wine Drug use: Never Substance use type: does not use Adopted: No Caregiver/Support person: No Foster care: No Household members: spouse and children Housing: house Number of Children: 2 Communication Needs: None Education Level: college Do you need help understanding health information?: Never current occupation: RN Pets and animals: Yes Pets and animals: cat(s) Sexually active: Yes Do you think of yourself as: straight/heterosexual Current gender identity: female What is your relationship status?: How often do you talk on the phone with friends or family?: twice per week How often do you get together with friends or relatives?: twice per week Do you belong to any clubs or organized social groups?: no Panel score (0-1 are the most socially isolated patients): 2 What type of physical activity do you participate in: bicycling, other Details: hiking,skiing and running Duration: 60-90 minutes/day Frequency: daily Carmencita/Mosque: No preference Special carmencita needs: No Agree to transfusion: Yes Seatbelt use: always Helmet use: Yes Drive intox or ride w/intox otr tanker truck driver: No Working smoke detector in home: Yes Firearms in home: No Do you feel safe at home: Yes Do you feel safe in your relationship?: Yes Victim of physical abuse: No Victim of emotional abuse: No Victim of sexual abuse: No Would you like helpful sources: No Meds Allergies and Home Medications Allergies Allergy/AdvReac Type Severity Reaction Status Date / Time prochlorperazine edisylate Allergy Severe Extrapyramidal Verified 07/21/23 06:19 [From Compazine] affects Metronidazole HCl AdvReac Intermediate HEADACHE Verified 07/21/23 06:19 [From Flagyl] oxycodone AdvReac Intermediate VOMITS Verified 07/21/23 06:19 promethazine [From Phenergan] AdvReac Mild The Verified 07/21/23 06:19 reaction ishypotension see that Home Medications Medication Instructions Recorded Confirmed Type Unknown [No Known Home Meds] 12/17/22 07/17/23 History
--- NOTE | 2023-07-20 15:30 | PDOC.DSDIS_ITS ---
Date of service: 07/21/23 Time of Service: 07:43 Discharge Plan Disposition Patient Disposition: Home Condition: Good Discharge Details Reason For Visit: screening colonoscopy Attending Provider: Brian Karimi Primary Care Provider: Malgorzata Soto Home Meds and New Rx's Prescriptions: No Action No Known Home Meds Discharge Instructions Additional Instructions: Tosha, the procedure went just fine today, and I hope it was fairly comfortable for you. I did do several biopsies within the duodenum, as well as the duodenal bulb in an effort to help confirm or refute the diagnosis of celiac disease. The biopsies went smoothly, and I do not suspect you will have any issue with this. To the naked eye, the duodenum appeared pretty normal. Although there were a few areas that I suppose could represent blunting of the duodenal villi. I made sure to get retail service representative samples of those areas. Biopsies have been running about 5 or 6 days, but as soon as I see them I will give you a call. If you need anything in the meantime, please let me know. 1. If tolerated, consume a soft, low fiber diet for 1-2 days. [address] Do not drive, drink alcohol, operate machinery, make critical decisions, or do activities that require coordination or balance for 24 hours. 3. You may experience a sore throat for 24 to 48 hours. You may use throat lozenges or gargle with warm salt water to relieve the discomfort. 4. Because air was put into your stomach during the procedure, you may experience some belching. 5. Go directly to the emergency room if you notice any of the following: Develop chills (warm to touch), or if you have a thermometer and your temperature is above 101 Difficulty breathing or difficultly swallowing Persistent vomiting Severe abdominal pain, other than gas cramps Severe chest pain Black, tarry stools Any bleeding ? exceeding one tablespoon 6. Call your physician if the site where your intravenous was started becomes red, swollen, painful, and warm to touch. 7. Your physician has reviewed your pre-procedure medications. Please continue to take those medications as previously ordered. You will be given specific information/education regarding any changes to your medications before leaving. Activity:: Activity as Tolerated Diet:: As Tolerated Discharge Orders Discharge Orders: Discharge Order (Routine); Ordered 07/20/23 Ordered By: Brian Karimi DS: Diagnosis Discharge Diagnosis (1) Family history of celiac disease: Status: Acute Asessment and Plan: Follow-up on biopsy results
--- NOTE | 2023-07-20 15:31 | W.COLOREPORT ---
Date of service: 07/21/23 Colonoscopy Report Date of procedure: 07/21/23 Pre-op diagnosis general: screening colonoscopy Procedure: Colonoscopy Surgeon: Brian Karimi Anesthesia Type: General:No Airway Complications: None Disposition: same day Indications: Tosha is a 43 year old woman with a fmaily history of colon cancer who needs her next screening colonoscopy Prep: Miralax/Dulcolax
[2023-07-21 06:37] VITALS: BP 116/70; PULSE 58; RESP 16; TEMP 36.7; O2SAT 98
[2023-07-21] MEDS: Lactated Ringers 1,000 ML 80 ML IV (06:40)
--- NOTE | 2023-07-21 07:12 | W.ANESPRE ---
General Info Date of Service Date Performed: 07/21/23 Height: 5 ft 5.5 in Weight: 66.5 kg Body Mass Index (BMI): 24.0 Surgical Procedure: Operation Date: 07/21/23 07:35 Proposed Procedure Side Surgeon p Gastroscopy w/Biopsy Brian Karimi MD Meds Allergies and Home Medications Allergies Allergy/AdvReac Type Severity Reaction Status Date / Time prochlorperazine edisylate Allergy Severe Extrapyramidal Verified 07/21/23 06:19 [From Compazine] affects Metronidazole HCl AdvReac Intermediate HEADACHE Verified 07/21/23 06:19 [From Flagyl] oxycodone AdvReac Intermediate VOMITS Verified 07/21/23 06:19 promethazine [From Phenergan] AdvReac Mild The Verified 07/21/23 06:19 reaction ishypotension see that Home Medication Medication Instructions Recorded Unknown [No Known Home Meds] 12/17/22 Current Visit Medications: Current Medications Generic Name Dose Route Start Last Admin Trade Name Freq PRN Reason Stop Dose Admin Hyoscyamine Sulfate 0.125 mg 07/20/23 15:32 Hyoscyamine 0.125 Mg Sl/Oral/Chew SL 08/19/23 15:31 DIRECTED PRN Ringer's Solution 1,000 mls @ 80 mls/hr 07/21/23 06:00 07/21/23 06:40 IV 07/21/23 23:59 80 mls/hr INFUSION JOHN Administration IV Miscellaneous Supplies 1 each 07/21/23 06:00 Iv Access IV 07/21/23 23:59 DIRECTED JOHN Ondansetron HCl 4 mg 07/20/23 15:32 Ondansetron 4 Mg/2 Ml Vial IVP 08/19/23 15:31 Q4H PRN PRN Nausea / Vomiting Sodium Chloride 0 ml 07/21/23 06:00 Normal Saline Flush 10 Ml Syr IV 07/21/23 23:59 PRN PRN Sodium Chloride 0 ml 07/21/23 06:00 Normal Saline 10 Ml Vial IJ 07/21/23 23:59 DIRECTED PRN Sterile Water 0 ml 07/21/23 06:00 Water,Injection,Sterile 10 Ml Vial IJ 07/21/23 23:59 DIRECTED PRN PFSH Active Problems Active Problems: Problem Status Onset Code Encounter for screening colonoscopy Z12.11 Family history of celiac disease Z83.79 Vulvar irritation N90.89 Piriformis syndrome of left side G57.02 Encounter for screening for other viral diseases Z11.59 Low back pain radiating to left leg M54.50, M79.605 Colon polyp, hyperplastic K63.5 Irregular menses N92.6 Hypotension I95.9 Anemia D64.9 Medical History Medical History Other general counseling and advice for contraceptive management Gastritis 03/29/2019- endoscopy, mild gastritis, no other concerning findings Dehydration, moderate Hypotension Nausea and vomiting in adult Enteritis Encounter for supervision of other normal , third trimester (04/19/15) Hyperemesis gravidarum before end of 22 week gestation with carbohydrate depletion (12/22/14) care and examination of lactating mother (10/06/12) Supervision of other high risk pregnancies, first trimester (12/22/14) Nausea and vomiting during (06/01/15) Surgical History Surgical History History of colonoscopy (~03/29/19) 2009- Tobacco Smoking/Tobacco Use Status: Never Passive smoking exposure: Yes Second hand exposure: Yes Alcohol Alcohol Intake: current Alcohol intake frequency: a few times a week Alcohol type: wine Substance Use Substance use: Never Substance use type: does not use Vital Signs and Lab Results Vital Signs Most Recent Vital Signs in EMR: Most Recent Vital Signs Temp Pulse Resp BP Pulse Ox 36.7 C 58 L 16 116/70 98 07/21/23 06:37 07/21/23 06:37 07/21/23 06:37 07/21/23 06:37 07/21/23 06:37 Lab Results Blood Type / Crossmatch: No Data to Display Complete Blood Count: No Data to Display Complete Metabolic Panel: No Data to Display Liver Function Panel: No Data to Display Coagulation Panel: No Data to Display Cardiac Panel: No Data to Display Arterial Blood Gas: No Data to Display Venous Blood Gas: No Data to Display Pancreas Panel: No Data to Display Thyroid Panel: No Data to Display Infectious Disease: No Data to Display Blood Cultures: No Data to Display Toxicology Panel: No Data to Display Panel: No Data to Display Anesthesia Assessment and Plan Anesthesia History Personal History: No History of Anesthesia Complications Family History: No Family History of Anesthesia Complications Exercise Tolerance Exercise Tolerance: Metabolic Equivalents>4 Pertinent Negatives Pertinent Negatives: No Symptoms of GERD Cardiac & Pulmonary Exam Cardiac Exam: Normal S1/S2 Heart Sounds Pulmonary Exam: Clear Bilateral Breath Sounds Implantable Cardiac Device Does patient have a Pacemaker or an ICD?: No Airway Exam Known Difficult Airway: No Mallampati Class: 2 Mouth Opening: Normal (> 3cm) Thyromental Distance: Greater than 3 cm Neck Range of Motion: Full ROM Neck Circumference: Normal Teeth Condition: Normal Dentition ASA Classification ASA Score: ASA 2 Emergency Case?: No NPO Status NPO Status: NPO Clears >2 hours, Solids >8 hours Status Status: Negative HCG Anesthesia Plan Resuscitation Status: Full Code Anesthesia Technique: General Anesthesia Airway Planned: Natural Airway Monitors Used: Standard Monitors
[2023-07-21 07:13] VITALS: BMI 24.0
--- NOTE | 2023-07-21 07:18 | ENDO_ITS ---
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 She needs a diagnostic EGD with biopsies PROCEDURE START TIME: 07:32 PROCEDURE END TIME: 07:39 FINDINGS: Normal esophagus. Normal Z-line and GE junction at 36 cm from the incisors. Generally normal-appearing duodenal mucosa. PROCEDURE DESCRIPTION: After the initiation of anesthesia, and with the assistance of a bite block, I advanced a standard gastroscope through the mouth past the hypopharynx and into the esophagus.? Under the direct vision of the scope, I advanced down the esophagus towards the stomach.? The Z-line and GE junction were encountered around 36 cm from the incisors. The Z-line was regular, and I did not see any signs of Harris's esophagus. The camera was advanced down into the stomach and retroflexed. I did not see any signs of a hiatal hernia. The stomach was insufflated until the gastric rugae were obliterated. The gastric mucosa was all normal and healthy appearing. I advanced down to the incisura angularis. The gastric antrum and pylorus were normal-appearing. I was able to get across the pylorus without any difficulty. Maybe there were some punctate areas of villous blunting within the duodenal bulb. I advanced down into the second portion of the duodenum. All of this was normal-appearing. I did do cold forceps biopsies of the main portion of the duodenum and several areas. There was no concerning bleeding. I brought the camera back up to the duodenal bulb. I performed cold forceps biopsies here as well. I did take great care to ensure that there were some guest relations representative samples of some areas that did appear consistent with villous blunting. These biopsies were also performed with cold forceps without any issue. The stomach was then emptied, and the camera was brought back out along the length of the esophagus which was examined 1 more time. This was all normal.
--- NOTE | 2023-07-21 07:35 | BOWEL_PTH ---
PATIENT: Anuradha Dunlap LOC: [facility] U#:[id number] AGE/SX: 43/F ROOM: RE07/21/[address]: Brian Karimi MD : 1980 BED: DIS: 07/21/2023 SPEC #: [id number] RECD: 07/21/23 12:51 STATUS: ANDRA RE #: [id number] NAS: 07/21/23 07:[address]: Brian Karimi DEPT: Surgical Specimen RECD BY: Yanni Pina ENTERED: 07/21/23 12:53 SP TYPE: Bowel OTHR DR: Malgorzata Soto, METAL FURNITURE PANEL COVERER Tissues: 1 - BIOPSY BOWEL 2 - BIOPSY BOWEL Procedures: GROSS AND MICRO LEVEL 4 Comments: [id number]
[2023-07-21 07:46] VITALS: BP 96/59; PULSE 63; RESP 22; TEMP 36.5; O2SAT 96
--- NOTE | 2023-07-21 07:57 | W.ANESPOSTOP ---
Postoperative Evaluation Date, Time and Location Date Performed: 07/21/23 Time Performed: 07:57 Patient Location: Day Surgery Unit Vital Signs Most Recent Imported Vital Signs: Most Recent Vital Signs Temp Pulse Resp BP Pulse Ox 36.7 C 58 L 16 116/70 98 07/21/23 06:37 07/21/23 06:37 07/21/23 06:37 07/21/23 06:37 07/21/23 06:37 Pain Score Most Recent Pain Score: Most Recent Pain Score Pain Level 0 07/21/23 06:37 Assessment Mental Status: Awake (Alert & Oriented to Patient Baseline) Airway and Respiratory Function: Patent airway with normal (patient baseline) respiratory exam Cardiovascular Function: Hemodynamically Stable Hydration Status: Adequately Hydrated Nausea & Vomiting: No Nausea or Vomiting Pain: Pt. Denies Any Pain Peripheral Nerve Block: Patient did not receive a nerve block
[2023-07-21 08:20] VITALS: BP 104/70; PULSE 60; RESP 17; TEMP 36.5; O2SAT 98
== END 2023-07-21 08:45 | disposition home or self-care (01) ==
LOC: SUR 06:17
PROVIDERS: PCP Nurse Practitioner Family; Visit Provider Surgery
PROC: 0DJ68ZZ Inspection of Stomach, Via Natural or Artificial Opening Endoscopic (ICD-10-PCS; CPT 43235; principal; 2023-07-21 07:30)
DX: Z83.79 Family history of other diseases of the digestive system; R10.9 Unspecified abdominal pain; D64.9 Anemia, unspecified
CPT/HCPCS: 43239; 81025; 88305; J2001; J2250; J2704

== ENCOUNTER 2023-08-19 15:39 | Outpatient (CLI) | payer OTHER, SELFPAY ==
--- NOTE | 2023-08-19 10:45 | DI.RAD_ITS ---
Exam(s) XR KNEE RT 3V AP,LAT,BABAK EXAM: XR KNEE RT 3V AP,LAT,BABAK CLINICAL HISTORY: RIGHT KNEE PAIN. TECHNIQUE: 2D digital imaging was performed of the right knee. Four views obtained. Merchant, AP, la teral and PA tunnel views were obtained. COMPARISON: No priors for comparison. FINDINGS: BONES: No acute fracture is present. No bony destructive lesion is seen. JOINTS: The knee is normally aligned. No joint effusion is seen. SOFT TISSUE: Normal. IMPRESSION: Unremarkable radiographs of the right knee. DATA REPOSITORY: RADIATION DOSE DELIVERED:
== END 2023-08-19 15:40 | disposition home or self-care (01) ==
LOC: DIORS 15:39
PROVIDERS: PCP Nurse Practitioner Family; Visit Provider Student in an Organized Health Care Education/Training Program
DX: M25.561 Pain in right knee (principal)
CPT/HCPCS: 73562

== ENCOUNTER 2023-11-20 14:28 | Outpatient (RCR) | payer OTHER, SELFPAY ==
--- NOTE | 2023-11-20 10:30 | HOLTER_ITS ---
APPROVED REPORT Conclusion This is a 48-hour Holter monitor Predominant rhythm was sinus with an average heart rate of 82. Minimum was 51, maximum 176 A total of 2 premature ventricular contractions were recorded There were very rare isolated atrial premature beats There was no atrial fibrillation, no high-grade AV block, no pauses greater than 3 seconds No patient symptoms were reported
== END 2023-11-22 23:59 | disposition home or self-care (01) ==
LOC: CARDOPNVT 14:28
PROVIDERS: PCP Nurse Practitioner Family; Visit Provider Internal Medicine Cardiovascular Disease
DX: R00.2 Palpitations (principal)
CPT/HCPCS: 93225

== ENCOUNTER 2023-11-23 16:32 | Outpatient (RCR) | payer OTHER, SELFPAY | END 2023-12-22 23:59 | disposition home or self-care (01) | LOC: CARDOPNVT 16:32 | PROVIDERS: PCP Nurse Practitioner Family; Visit Provider Internal Medicine Cardiovascular Disease | DX: R00.2 Palpitations (principal) | CPT/HCPCS: 93226 ==

== ENCOUNTER 2024-01-22 10:15 | Outpatient (CLI) | payer OTHER, SELFPAY ==
[2024-01-22 10:43] LABS: Abs Immature Grans 0.01 10^3/uL (0.0-0.06); Absolute Basophil Count 0.02 10^3/uL (0.0-0.2); Absolute Eosinophil Count 0.03 10^3/uL (0.0-0.7); Absolute Lymphocyte Count 1.07 10^3/uL (1.2-3.4); Absolute Monocyte Count 0.37 10^3/uL (0.1-0.8); Absolute Neutrophil Count 2.13 10^3/uL (1.2-6.7); Basophils % 0.6 %; Eosinophils % 0.8 %; HCT 39.3 % (36.0-46.0); HGB 13.1 g/dL (11.2-15.7); Immature Grans % 0.3 %; Lymphocytes % 29.5 %; MCH 27.9 pg (27.0-33.0); MCHC 33.3 % (32.0-36.0); MCV 84 fL (80-95); MPV 10.1 fL (8.0-11.0); Monocytes % 10.2 %; Neutrophils % 58.6 %; Platelet Count 312 10^3/uL (130-400); RDW 13.5 % (11.7-14.6); RDW-SD 41.3 fL; WBC 3.63 10^3/uL (4.4-10.8)
[2024-01-22 11:21] LABS: Iron 71 ug/dL (50-170); Total Iron Binding Capacity 246 ug/dL (250-450); Transferrin Sat 29 % (15-50)
[2024-01-22 11:35] LABS: ALT 71 U/L (14-59); AST 57 U/L (15-37); Albumin 3.3 g/dL (3.4-5.0); Alkaline Phosphatase 166 U/L (46-116); BUN 11 mg/dL (7-18); Bilirubin, Total 0.42 mg/dL (0.2-1.0); CREATININE 0.6 mg/dL (0.55-1.02); Calcium 9.5 mg/dL (8.5-10.1); Chloride 107 mmol/L (98-107); Estimated GFR 113.44 (mL/min/1.73m2); Ferritin 227 ng/mL (8-252); Folate 11.1 ng/mL (8.6-20.0); Glucose 102 mg/dL (74-106); Potassium 4.2 mmol/L (3.5-5.1); Sodium 142 mmol/L (136-145); TSH (W/Ref FT4) < 0.01 uIU/mL (0.36-3.74); Total Protein 7.4 g/dL (6.4-8.2); Vitamin B12 436 pg/mL (193-986); Vitamin D 25 Total 43.7 ng/mL (30-100)
[2024-01-22 11:57] LABS: FREE T4 2.87 ng/dL (0.76-1.46); NT-proBNP 93 pg/mL (<300)
[2024-01-22 14:17] LABS: Lab Add On Test DONE
[2024-01-22 22:08] LABS: T3, Total 601 ng/dL (97-169)
== END 2024-01-22 10:16 | disposition home or self-care (01) ==
LOC: LBO 10:21
PROVIDERS: PCP Nurse Practitioner Family; Visit Provider Nurse Practitioner Family
DX: D64.9 Anemia, unspecified (principal); I95.89 Other hypotension; E86.1 Hypovolemia; R00.0 Tachycardia, unspecified; R29.898 Other symptoms and signs involving the musculoskeletal system; R79.89 Other specified abnormal findings of blood chemistry
CPT/HCPCS: 36415; 80053; 81401; 82172; 82306; 83695; 82607; 82728; 82746; 83036; 83540; 83550; 83880; 84439; 84443; 84480; 85025

== ENCOUNTER 2024-02-09 20:10 | Outpatient (REF) | payer OTHER, SELFPAY ==
[2024-02-09 19:51] LABS: Bilirubin Negative (Negative); Blood Negative (Negative); Clarity Clear (Clear); Glucose Negative (Negative); Ketones Negative (Negative); Leukocyte Esterase Negative (Negative); Nitrite Negative (Negative); Specific Gravity 1.015 (1.005-1.025); Urobilinogen 0.2 mg/dL (Up to 0.2); pH 7.5 (5-8)
== END 2024-02-09 20:11 | disposition home or self-care (01) ==
LOC: LBN 20:10
PROVIDERS: PCP Nurse Practitioner Family; Visit Provider Nurse Practitioner Family
DX: R30.0 Dysuria (principal)
CPT/HCPCS: 81003

== ENCOUNTER 2024-02-25 16:37 | Outpatient (CLI) | payer OTHER, SELFPAY ==
[2024-02-25 16:36] LABS: Abs Immature Grans 0.04 10^3/uL (0.0-0.06); Absolute Basophil Count 0.04 10^3/uL (0.0-0.2); Absolute Eosinophil Count 0.04 10^3/uL (0.0-0.7); Absolute Lymphocyte Count 1.61 10^3/uL (1.2-3.4); Absolute Neutrophil Count 8.57 10^3/uL (1.2-6.7); Basophils % 0.4 %; Eosinophils % 0.4 %; HCT 38.1 % (36.0-46.0); HGB 12.7 g/dL (11.2-15.7); Immature Grans % 0.4 %; Lymphocytes % 14.6 %; MCH 27.4 pg (27.0-33.0); MCHC 33.3 % (32.0-36.0); MCV 82 fL (80-95); Monocytes % 6.4 %; Neutrophils % 77.8 %; Platelet Count 248 10^3/uL (130-400); RBC 4.64 10^6/uL (3.93-5.22); RDW 11.7 % (11.7-14.6); RDW-SD 34.8 fL; WBC 11.01 10^3/uL (4.4-10.8)
== END 2024-02-25 16:38 | disposition home or self-care (01) ==
LOC: LBO 16:38
PROVIDERS: PCP Nurse Practitioner Family; Visit Provider Surgery
DX: D70.9 Neutropenia, unspecified (principal)
CPT/HCPCS: 36415; 85025

== ENCOUNTER 2024-03-04 14:59 | Outpatient (REF) | payer OTHER, SELFPAY ==
--- NOTE | 2024-03-04 15:00 | PAPFT_PTH ---
PATIENT: Anuradha Dunlap LOC: [facility] U#:[id number] AGE/SX: 43/F ROOM: RE03/04/[address]: Maddy Ureña DO : 1980 BED: DIS: 03/04/2024 SPEC #: [id number] RECD: 03/04/24 16:39 STATUS: SOUMartin REQ #: [id number] NAS: 03/04/24 15:[address]: Maddy Ureña [facility]PT[facility] Cytology RECD BY: Yanni Pina ENTERED: 03/04/24 16:39 SP TYPE: PAPFT OTHR DR: Malgorzata Soto, ALYCIA Tissues: 1 - CX/ENDOCX FOR PAP SMEARS Procedures: PAP THIN PREP/UVM Screening HPV DNA PROBE Comments: [id number] (HPV 16 & 18/45)
== END 2024-03-04 15:00 | disposition home or self-care (01) ==
LOC: LBN 14:59
PROVIDERS: PCP Nurse Practitioner Family; Visit Provider Obstetrics & Gynecology
DX: Z12.39 Encounter for other screening for malignant neoplasm of breast (principal); Z01.419 Encounter for gynecological examination (general) (routine) without abnormal findings; E05.90 Thyrotoxicosis, unspecified without thyrotoxic crisis or storm
CPT/HCPCS: 88142; 87624

== ENCOUNTER 2024-03-05 11:53 | Outpatient (CLI) | payer OTHER, SELFPAY ==
[2024-03-05 12:08] LABS: Abs Immature Grans 0.01 10^3/uL (0.0-0.06); Absolute Basophil Count 0.04 10^3/uL (0.0-0.2); Absolute Eosinophil Count 0.07 10^3/uL (0.0-0.7); Absolute Lymphocyte Count 1.86 10^3/uL (1.2-3.4); Absolute Neutrophil Count 3.93 10^3/uL (1.2-6.7); Basophils % 0.6 %; Eosinophils % 1.1 %; HCT 38.8 % (36.0-46.0); HGB 13.1 g/dL (11.2-15.7); Immature Grans % 0.2 %; Lymphocytes % 29.5 %; MCH 27.5 pg (27.0-33.0); MCHC 33.8 % (32.0-36.0); MCV 81 fL (80-95); MPV 9.7 fL (8.0-11.0); Monocytes % 6.3 %; Neutrophils % 62.3 %; Platelet Count 342 10^3/uL (130-400); RBC 4.77 10^6/uL (3.93-5.22); RDW-SD 35.8 fL; WBC 6.31 10^3/uL (4.4-10.8)
[2024-03-05 12:36] LABS: ALT 35 U/L (14-59); AST 26 U/L (15-37); Albumin 3.7 g/dL (3.4-5.0); Alkaline Phosphatase 230 U/L (46-116); Bilirubin, Direct 0.1 mg/dL (0.0-0.2)
[2024-03-05 12:38] LABS: ALT 36 U/L (14-59); AST 27 U/L (15-37); Albumin 3.7 g/dL (3.4-5.0); Alkaline Phosphatase 234 U/L (46-116); Anion Gap 5.3 mmol/L (3-11); BUN 4 mg/dL (7-18); Bilirubin, Total 0.41 mg/dL (0.2-1.0); CO2 30.7 mmol/L (21.0-32.0); CREATININE 0.7 mg/dL (0.55-1.02); Calcium 9.7 mg/dL (8.5-10.1); Chloride 104 mmol/L (98-107); Glucose 94 mg/dL (74-106); Potassium 4.2 mmol/L (3.5-5.1); Sodium 140 mmol/L (136-145)
[2024-03-05 12:45] LABS: FREE T4 1.15 ng/dL (0.76-1.46)
[2024-03-05 12:47] LABS: TSH < 0.01 uIU/mL (0.36-3.74)
== END 2024-03-05 11:54 | disposition home or self-care (01) ==
LOC: LBO 11:54
PROVIDERS: Naturopath; Student in an Organized Health Care Education/Training Program; PCP Nurse Practitioner Family; Visit Provider Nurse Practitioner Family
DX: Z00.00 Encounter for general adult medical examination without abnormal findings (principal); D64.9 Anemia, unspecified; R00.0 Tachycardia, unspecified; E05.90 Thyrotoxicosis, unspecified without thyrotoxic crisis or storm; R74.01 Elevation of levels of liver transaminase levels; I10 Essential (primary) hypertension
CPT/HCPCS: 36415; 80053; 80076; 84439; 84443; 85025

== ENCOUNTER 2024-03-23 01:21 | Outpatient (CLI) | payer OTHER, SELFPAY | END 2024-03-23 01:41 | LOC: DI 01:21 | PROVIDERS: PCP Nurse Practitioner Family; Visit Provider Obstetrics & Gynecology | DX: Z12.31 Encounter for screening mammogram for malignant neoplasm of breast (principal); R92.323 Mammographic fibroglandular density, bilateral breasts | CPT/HCPCS: 77063; 77067 ==

== ENCOUNTER 2024-04-05 17:38 | Outpatient (CLI) | payer OTHER, SELFPAY ==
[2024-04-05 17:36] LABS: ALT 70 U/L (14-59); AST 48 U/L (15-37); Albumin 4.1 g/dL (3.4-5.0); Alkaline Phosphatase 283 U/L (46-116); Bilirubin, Direct 0.1 mg/dL (0.0-0.2); Bilirubin, Total 0.45 mg/dL (0.2-1.0); FREE T4 0.42 ng/dL (0.76-1.46); Total Protein 8.1 g/dL (6.4-8.2)
[2024-04-13 19:25] LABS: Thyroid Stimulating Immunoglob 3.8 TSI index (<=1.3)
== END 2024-04-05 17:39 | disposition home or self-care (01) ==
LOC: LBO 17:39
PROVIDERS: Naturopath; PCP Nurse Practitioner Family; Visit Provider Student in an Organized Health Care Education/Training Program
DX: E05.90 Thyrotoxicosis, unspecified without thyrotoxic crisis or storm (principal); R74.01 Elevation of levels of liver transaminase levels
CPT/HCPCS: 36415; 80076; 84439; 84443; 84445

== ENCOUNTER 2024-05-07 14:49 | Outpatient (CLI) | payer OTHER, SELFPAY ==
[2024-05-07 16:12] LABS: ALT 61 U/L (14-59); AST 33 U/L (15-37); Alkaline Phosphatase 232 U/L (46-116); Bilirubin, Direct 0.1 mg/dL (0.0-0.2); Bilirubin, Total 0.42 mg/dL (0.2-1.0); FREE T4 0.67 ng/dL (0.76-1.46); TSH 2.13 uIU/mL (0.36-3.74)
[2024-05-07 17:37] LABS: T4 5.7 ug/dL (4.7-13.3)
[2024-05-08 23:27] LABS: T3,Free 2.6 pg/mL (2.8-5.3)
[2024-05-08 23:35] LABS: T3, Total 112 ng/dL (97-169)
== END 2024-05-07 14:50 | disposition home or self-care (01) ==
LOC: LBO 14:50
PROVIDERS: PCP Nurse Practitioner Family; Visit Provider Student in an Organized Health Care Education/Training Program
DX: E05.90 Thyrotoxicosis, unspecified without thyrotoxic crisis or storm (principal); R74.01 Elevation of levels of liver transaminase levels
CPT/HCPCS: 36415; 80076; 84436; 84439; 84443; 84480; 84481

== ENCOUNTER 2024-06-28 06:48 | Day surgery (SDC) | payer OTHER, SELFPAY ==
--- NOTE | 2024-06-27 12:48 | W.PREOPHP ---
Assessment and Plan Assessment and plan (1) Encounter for screening colonoscopy: Status: Acute Assessment and plan: We reviewed the plan for a screening colonoscopy and the risks and the benefits of the procedure. I think Tosha has a good understand of what to expect and she is able to provide informed consent today. We can proceed with colonoscopy as planned. History of Present Illness History of Present Illness Chief Complaint: screning colonoscopy Narrative: Tosha is a 44 year old woman with a family history of colon cancer. She has had hyperplastic polyps removed in the past. She is due for her next screening colonsocopy [facility] All Active Problems Hyperthyroidism (Chronic) Tachycardia (Acute) Leg weakness, bilateral (Acute) 08/2023. x6mo. feels like she cant lift legs. Dryness of vagina (Acute) Iliotibial band syndrome of right side (Acute) Encounter for screening colonoscopy (Acute) Family history of celiac disease (Acute) Vulvar irritation (Acute) Piriformis syndrome of left side (Acute) Encounter for screening for other viral diseases (Acute) Low back pain radiating to left leg (Acute) Colon polyp, hyperplastic (Acute) Irregular menses (Acute) Hypotension (Acute) Anemia (Acute) Medical History Other general counseling and advice for contraceptive management Gastritis 03/29/2019- endoscopy, mild gastritis, no other concerning findings Dehydration, moderate Hypotension Nausea and vomiting in adult Enteritis Encounter for supervision of other normal , third trimester (04/19/15) Hyperemesis gravidarum before end of 22 week gestation with carbohydrate depletion (12/22/14) care and examination of lactating mother (10/06/12) Surgical History History of esophagogastroduodenoscopy (EGD) History of colonoscopy (~06/2023) 2009- Family History Mother Essential hypertension Father , 73 Essential hypertension Heart disease Aortic stenosis, CABG with valve in 2014 Alcohol abuse Colon cancer hemicolectomy Sister Substance abuse Maternal Grandfather No problems noted. Paternal Grandfather , MVA 1986 No problems noted. Maternal Grandmother Breast cancer Paternal Grandmother Colorectal cancer Daughter No problems noted. Daughter No problems noted. Social History Smoking/Tobacco Use Status: Never Second Hand Exposure: Yes Smoking risk assessment performed?: Yes Alcohol Intake: never Drug use: Never Substance use type: does not use Adopted: No Caregiver/Support person: No Foster care: No Household members: spouse and children Housing: house Number of Children: 2 Communication Needs: None Education Level: college Do you need help understanding health information?: Never current occupation: RN Pets and animals: Yes Pets and animals: cat(s) Sexually active: Yes Do you think of yourself as: straight/heterosexual Current gender identity: female What is your relationship status?: How often do you talk on the phone with friends or family?: twice per week How often do you get together with friends or relatives?: twice per week Do you belong to any clubs or organized social groups?: no Panel score (0-1 are the most socially isolated patients): 2 What type of physical activity do you participate in: bicycling, other Details: hiking,skiing and running Duration: 60-90 minutes/day Frequency: daily Carmencita/Lutheran: No preference Special carmencita needs: No Agree to transfusion: Yes Seatbelt use: always Helmet use: Yes Drive intox or ride w/intox lumber driver: No Working smoke detector in home: Yes Firearms in home: No Do you feel safe at home: Yes Do you feel safe in your relationship?: Yes Victim of physical abuse: No Victim of emotional abuse: No Victim of sexual abuse: No Would you like helpful sources: No Meds Allergies and Home Medications Allergies Allergy/AdvReac Type Severity Reaction Status Date / Time prochlorperazine edisylate Allergy Severe Extrapyramidal Verified 03/04/24 14:03 (From Compazine) affects Metronidazole HCl (From AdvReac Intermediate HEADACHE Verified 03/04/24 14:03 Flagyl) oxycodone AdvReac Intermediate VOMITS Verified 03/04/24 14:03 promethazine (From Phenergan) AdvReac Mild Other (See Verified 06/25/24 12:18 Comment) Home Medications ?Medication ?Instructions ?Recorded ?Confirmed ?Type methimazole 5 mg tablet 5 mg PO DAILY #90 tabs 02/05/24 06/25/24 Rx Exam Const General: cooperative, healthy appearing and not in acute distress Neck Neck: normal visual inspection, no lymphadenopathy and supple Resp Effort & Inspection: normal respiratory effort Auscultation: clear to auscultation bilaterally Cardio Jugular venous pressure: no JVD Rate: regular rate Rhythm: regular rhythm Heart Sounds: S1 normal and S2 normal GI Inspection: normal to inspection Palpation: soft, no guarding, no hernias and nontender Percussion: normal to percussion Auscultation: normal bowel sounds Neuro General: patient alert, patient awake and patient oriented x3 Psych Appearance: grossly normal
--- NOTE | 2024-06-27 12:56 | W.PM.DSUDISC ---
Date of service: 06/28/24 Discharge Plan Disposition Patient Disposition: Home Condition: Good Discharge Details Reason For Visit: screening colonoscopy Attending Provider: Brian Karimi Primary Care Provider: Malgorzata Soto Home Meds and New Rx's Prescriptions: Continued methimazole 5 mg tablet 5 mg PO DAILY Qty: 90 3RF Discharge Instructions Additional Instructions: Tosha, your colonoscopy went very smoothly. I would not particularly say your colon is tortuous, and your prep was certainly outstanding and we could see everything fine. There is no evidence of any tumors, polyps, or any meaningful pathology at all. As you know, with your family history, I would keep your screening intervals to 5 years at this point. Let me know if you have any questions at all. 1. If tolerated, consume a soft, low fiber diet for 1-2 days. 2[address] Do not drive, drink alcohol, operate machinery, make critical decisions, or do activities that require coordination or balance for 24 hours. 3. Because air was put into your colon during the procedure, expelling air from your rectum (passing gas or farting) is normal. 4. You may not have a bowel movement for 1-3 days because of the colonoscopy prep. This is normal. 5. Go directly to the emergency room if you notice any of the following: Develop chills (warm to touch), or if you have a thermometer and your temperature is above 101 Difficulty breathing or difficultly swallowing Persistent vomiting Severe abdominal pain, other than gas cramps Severe chest pain Black, tarry stools Any bleeding ? exceeding one tablespoon 6. Call your physician if the site where your intravenous was started becomes red, swollen, painful, and warm to touch. 7. Your physician has reviewed your pre-procedure medications. Please continue to take those medications as previously ordered. You will be given specific information/education regarding any changes to your medications before leaving. Activity:: Activity as Tolerated Diet:: As Tolerated DS: Diagnosis Discharge Diagnosis (1) Encounter for screening colonoscopy: Status: Acute Asessment and Plan: screening colonoscopy
--- NOTE | 2024-06-27 12:57 | W.COLOREPORT ---
Date of service: 06/28/24 Time of Service: 08:36 Colonoscopy Report Date of procedure: 06/28/24 Pre-op diagnosis general: screening colonoscopy Procedure: colonoscopy Surgeon: Brian Karimi Anesthesia Type: General:No Airway Complications: None Disposition: same day Indications: Tosha is a 44 year old woman with a family history of colon cancer. She is due for her next screening colonoscopy Prep: Miralax/Dulcolax Procedure Start Time: 08:02 Procedure End Time: 08:21 Retraction Time: 7 Findings: Negative screening colonoscopy Procedure Description: After the induction of anesthesia, and with the patient in left lateral decubitus position, I began by performing an external anorectal exam.? Perineum and skin were normal, as was the anal verge.? There was no evidence of external hemorrhoids.? Next, I performed a digital rectal exam.? I did not appreciate any abnormal findings.? Next, I advanced a colonoscope into the rectal vault.? I performed retroflexion.? This appeared normal.? Using irrigation, I then advanced the colonoscope beyond the rectal folds and into the sigmoid colon before advancing towards the cecum.? The quality of the prep was outstanding.? The scope was noted to be in the cecum by identification of the ileocecal valve and appendiceal orifice.? I then began withdrawing the colonoscope using repeated irrigation as necessary for full evaluation of the colonic mucosa. ?Once the scope was withdrawn to the level of the rectum, great care was taken to examine portions of the rectal folds.? I saw no signs of tumors, polyps, or any other worrisome pathology. Finally, the scope was withdrawn and the patient was brought to the same-day surgery recovery unit as the anesthetic wore off. ?The findings and instructions were shared with the patient prior to discharge. [place] Bowel Prep [place] Bowel Prep Right Colon: 3 Left Colon: 3 Transverse Colon: 3 Total Score: 9
[2024-06-28 07:04] VITALS: BP 109/76; PULSE 89; RESP 12; TEMP 36.6; O2SAT 100
[2024-06-28] MEDS: Lactated Ringers 1,000 ML 80 ML IV (07:28)
--- NOTE | 2024-06-28 07:42 | W.ANESPRE ---
General Info Date of Service Date Performed: 06/28/24 Height: 5 ft 6 in Weight: 61 kg Body Mass Index (BMI): 21.7 Surgical Procedure: Operation Date: 06/28/24 08:05 Proposed Procedure Side Surgeon p Colonoscopy Brian Karimi MD Meds Allergies and Home Medications Allergies Allergy/AdvReac Type Severity Reaction Status Date / Time prochlorperazine edisylate Allergy Severe Extrapyramidal Verified 06/28/24 07:00 (From Compazine) affects Metronidazole HCl (From AdvReac Intermediate HEADACHE Verified 06/28/24 07:00 Flagyl) oxycodone AdvReac Intermediate VOMITS Verified 06/28/24 07:00 promethazine (From Phenergan) AdvReac Mild Other (See Verified 06/28/24 07:00 Comment) Home Medication ?Medication ?Instructions ?Recorded methimazole 5 mg tablet 5 mg PO DAILY #90 tabs 02/05/24 Current Visit Medications: Current Medications Generic Name Dose Route Start Last Admin Trade Name Freq PRN Reason Stop Dose Admin Ringer's Solution 1,000 mls @ 80 mls/hr 06/28/24 06:00 06/28/24 07:28 IV 06/28/24 23:59 80 mls/hr INFUSION JOHN Administration IV Miscellaneous Supplies 1 each 06/28/24 06:00 Iv Access IV 06/28/24 23:59 DIRECTED JOHN Sodium Chloride 0 ml 06/28/24 06:00 Normal Saline Flush 10 Ml Syr IV 06/28/24 23:59 PRN PRN Sodium Chloride 0 ml 06/28/24 06:00 Normal Saline 10 Ml Vial IJ 06/28/24 23:59 DIRECTED PRN Sterile Water 0 ml 06/28/24 06:00 Water,Injection,Sterile 10 Ml Vial IJ 06/28/24 23:59 DIRECTED PRN PFSH Active Problems Active Problems: Problem Status Onset Code Hyperthyroidism Chronic E05.90 Tachycardia Acute R00.0 Leg weakness, bilateral Acute R29.898 Dryness of vagina Acute N89.8 Iliotibial band syndrome of right side Acute M76.31 Encounter for screening colonoscopy Acute Z12.11 Family history of celiac disease Acute Z83.79 Vulvar irritation Acute N90.89 Piriformis syndrome of left side Acute G57.02 Encounter for screening for other viral diseases Acute Z11.59 Low back pain radiating to left leg Acute M54.50, M79.605 Colon polyp, hyperplastic Acute K63.5 Irregular menses Acute N92.6 Hypotension Acute I95.9 Anemia Acute D64.9 Medical History Medical History Other general counseling and advice for contraceptive management Gastritis 03/29/2019- endoscopy, mild gastritis, no other concerning findings Dehydration, moderate Hypotension Nausea and vomiting in adult Enteritis Encounter for supervision of other normal , third trimester (04/19/15) Hyperemesis gravidarum before end of 22 week gestation with carbohydrate depletion (12/22/14) care and examination of lactating mother (10/06/12) Surgical History Surgical History History of esophagogastroduodenoscopy (EGD) History of colonoscopy (~06/2023) 2009- Tobacco Smoking/Tobacco Use Status: Never Passive smoking exposure: No Second hand exposure: Yes Alcohol Alcohol Intake: never Substance Use Substance use: Never Substance use type: does not use Vital Signs and Lab Results Vital Signs Most Recent Vital Signs in EMR: Most Recent Vital Signs Temp Pulse Resp BP Pulse Ox 36.6 C 89 12 109/76 100 06/28/24 07:04 06/28/24 07:04 06/28/24 07:04 06/28/24 07:04 06/28/24 07:04 Lab Results Blood Type / Crossmatch: No Data to Display Complete Blood Count: White Blood Count 5.87 10^3/uL (4.4-10.8) 06/04/24 14:59 Red Blood Count 4.07 10^6/uL (3.93-5.22) 06/04/24 14:59 Hemoglobin 12.4 g/dL (11.2-15.7) 06/04/24 14:59 Hematocrit 36.4 % (36.0-46.0) 06/04/24 14:59 Platelet Count 308 10^3/uL (130-400) 06/04/24 14:59 Complete Metabolic Panel: Sodium 141 mmol/L (136-145) 06/04/24 14:49 Potassium 4.0 mmol/L (3.5-5.1) 06/04/24 14:49 Chloride 104 mmol/L (98-107) 06/04/24 14:49 Carbon Dioxide 29.5 mmol/L (21.0-32.0) 06/04/24 14:49 BUN 4 mg/dL (7-18) L 06/04/24 14:49 Creatinine 0.8 mg/dL (0.55-1.02) 06/04/24 14:49 Est GFR (CKD-EPI 2020) 92.54 (mL/min/1.73m2) 06/04/24 14:49 Calcium 9.5 mg/dL (8.5-10.1) 06/04/24 14:49 Albumin 3.9 g/dL (3.4-5.0) 06/04/24 14:59 Glucose 97 mg/dL (74-106) 06/04/24 14:49 Liver Function Panel: Alanine Aminotransferase (ALT/SGPT) 48 U/L (14-59) 06/04/24 14:59 Aspartate Amino Transf (AST/SGOT) 29 U/L (15-37) 06/04/24 14:59 Coagulation Panel: No Data to Display Cardiac Panel: No Data to Display Arterial Blood Gas: No Data to Display Venous Blood Gas: No Data to Display Pancreas Panel: No Data to Display Thyroid Panel: Thyroid Stimulating Hormone (TSH) 3.28 uIU/mL (0.36-3.74) 06/04/24 14:59 Infectious Disease: No Data to Display Blood Cultures: No Data to Display Toxicology Panel: No Data to Display Panel: No Data to Display Imaging and Studies Imaging and Studies Study information below may be from another EMR and interpreted by another provider. Please see original notes in EMR for more complete details. Echocardiogram Summary: 02/25/24 Conclusion Normal left ventricular wall thickness and chamber size. Ejection fraction is 60 to 65%. Wall motion is normal Normal right ventricular size and function Both atria are normal in size There is no structural or hemodynamically significant valvular disease Estimated right ventricular systolic pressure is 25 mmHg Anesthesia Assessment and Plan Anesthesia History Personal History: No History of Anesthesia Complications Family History: No Family History of Anesthesia Complications Exercise Tolerance Exercise Tolerance: Metabolic Equivalents>4 Pertinent Negatives Pertinent Negatives: No Symptoms of GERD, No Major Cardiovascular Symptoms or Complaints and No Major Pulmonary Symptoms or Complaints Cardiac & Pulmonary Exam Cardiac Exam: Normal S1/S2 Heart Sounds Pulmonary Exam: Clear Bilateral Breath Sounds Implantable Cardiac Device Does patient have a Pacemaker or an ICD?: No Airway Exam Known Difficult Airway: No Mallampati Class: 2 Mouth Opening: Normal (> 3cm) Thyromental Distance: Less than 3 cm Neck Range of Motion: Full ROM Neck Circumference: Normal Teeth Condition: Normal Dentition ASA Classification ASA Score: ASA 2 Emergency Case?: No NPO Status NPO Status: NPO Clears >2 hours, Solids >8 hours Status Status: Negative HCG Anesthesia Plan Resuscitation Status: Full Code Anesthesia Technique: General Anesthesia Airway Planned: Natural Airway Monitors Used: Standard Monitors
[2024-06-28 07:43] VITALS: BMI 21.7
[2024-06-28 08:27] VITALS: BP 92/61; PULSE 75; RESP 16; TEMP 36.6; O2SAT 100
--- NOTE | 2024-06-28 09:01 | W.ANESPOSTOP ---
Postoperative Evaluation Date, Time and Location Date Performed: 06/28/24 Time Performed: 08:41 Patient Location: Day Surgery Unit Vital Signs Most Recent Imported Vital Signs: Most Recent Vital Signs Temp Pulse Resp BP Pulse Ox 36.6 C 75 16 92/61 L 100 06/28/24 08:27 06/28/24 08:27 06/28/24 08:27 06/28/24 08:27 06/28/24 08:27 Pain Score Most Recent Pain Score: Most Recent Pain Score Pain Level 0 06/28/24 08:27 Assessment Mental Status: Awake (Alert & Oriented to Patient Baseline) Airway and Respiratory Function: Patent airway with normal (patient baseline) respiratory exam Cardiovascular Function: Hemodynamically Stable Hydration Status: Adequately Hydrated Nausea & Vomiting: No Nausea or Vomiting Pain: Pt. Denies Any Pain Peripheral Nerve Block: Patient did not receive a nerve block
== END 2024-06-28 09:15 | disposition home or self-care (01) ==
LOC: SUR 06:48
PROVIDERS: PCP Nurse Practitioner Family; Visit Provider Surgery
PROC: 0DJD8ZZ Inspection of Lower Intestinal Tract, Via Natural or Artificial Opening Endoscopic (ICD-10-PCS; CPT 45378; principal; 2024-06-28 08:00)
DX: Z12.11 Encounter for screening for malignant neoplasm of colon (principal); Z83.719 Family history of colon polyps, unspecified
CPT/HCPCS: 45378; J2003; J2250; J2405; J2704

== ENCOUNTER 2024-07-21 14:10 | Outpatient (CLI) | payer OTHER, SELFPAY ==
[2024-07-21 14:43] LABS: Abs Immature Grans 0.01 10^3/uL (0.0-0.06); Absolute Basophil Count 0.06 10^3/uL (0.0-0.2); Absolute Eosinophil Count 0.07 10^3/uL (0.0-0.7); Absolute Lymphocyte Count 1.66 10^3/uL (1.2-3.4); Absolute Monocyte Count 0.36 10^3/uL (0.1-0.8); Absolute Neutrophil Count 3.51 10^3/uL (1.2-6.7); Basophils % 1.1 %; Eosinophils % 1.2 %; HCT 37.7 % (36.0-46.0); HGB 12.8 g/dL (11.2-15.7); Immature Grans % 0.2 %; Lymphocytes % 29.3 %; MCH 30.3 pg (27.0-33.0); MCV 89 fL (80-95); MPV 9.8 fL (8.0-11.0); Monocytes % 6.3 %; Neutrophils % 61.9 %; Platelet Count 275 10^3/uL (130-400); RBC 4.22 10^6/uL (3.93-5.22); RDW 12.2 % (11.7-14.6); RDW-SD 39.9 fL; WBC 5.67 10^3/uL (4.4-10.8)
[2024-07-21 16:30] LABS: ALT 62 U/L (14-59); AST 37 U/L (15-37); Alkaline Phosphatase 178 U/L (46-116); Anion Gap 6.6 mmol/L (3-11); BUN 5 mg/dL (7-18); Bilirubin, Total 0.5 mg/dL (0.2-1.0); CO2 30.4 mmol/L (21.0-32.0); CREATININE 0.7 mg/dL (0.55-1.02); Calcium 9.1 mg/dL (8.5-10.1); Chloride 105 mmol/L (98-107); Estimated GFR 108.62 (mL/min/1.73m2); Glucose 83 mg/dL (74-106); Sodium 142 mmol/L (136-145); Total Protein 7.4 g/dL (6.4-8.2)
[2024-07-21 16:49] LABS: ALT 63 U/L (14-59); AST 38 U/L (15-37); Alkaline Phosphatase 180 U/L (46-116); Bilirubin, Direct 0.1 mg/dL (0.0-0.2); Bilirubin, Total 0.5 mg/dL (0.2-1.0); FREE T4 0.67 ng/dL (0.76-1.46); TSH 4.45 uIU/mL (0.36-3.74); Total Protein 7.4 g/dL (6.4-8.2)
[2024-07-21 21:54] LABS: T3,Free 2.7 pg/mL (2.8-5.3)
[2024-07-22 09:29] LABS: HBs Antibody, Quant 217.4 mIU/mL (See Note); Hepatitis B Surface Ab Positive (See Note)
[2024-07-22 09:47] LABS: Measles IgG Antibody Positive (See Note)
[2024-07-22 09:50] LABS: Mumps Antibody IgG Negative (See Note); Rubella IgG Ab (UVM) Positive (See Note)
[2024-07-22 09:52] LABS: Varicella IgG Antibody Positive (See Note)
[2024-07-23 12:56] LABS: TB Interpretation Negative (Negative); TB1 Ag minus Nil 0.02 IU/mL; TB2 Ag minus Nil 0.04 IU/mL
== END 2024-07-21 14:11 | disposition home or self-care (01) ==
LOC: LBO 14:11
PROVIDERS: Naturopath; PCP Nurse Practitioner Family; Visit Provider Nurse Practitioner Family
DX: Z13.9 Encounter for screening, unspecified (principal)
CPT/HCPCS: 36415; 80053; 80076; 86706; 86787; 84439; 84443; 84481; 85025; 86480; 86735; 86762; 86765

== ENCOUNTER 2024-07-22 07:54 | Outpatient (RCR) | payer OTHER, SELFPAY ==
--- NOTE | 2024-07-27 09:27 | W.HOLTRPT ---
Date of service: 07/27/24 Time of Service: 09:27 Holter Monitor Report Referring Provider:: Malgorzata Soto Indications:: Palpitations Holter Monitor Note: This is a Holter monitor ordered for palpitations. Rhythm throughout was sinus with an average heart rate of 66. Minimum was 35, maximum 130. There were a total of 7 premature ventricular contractions. A total of 144 premature atrial contractions were recorded. There was no atrial fibrillation, no high-grade AV block, no pauses greater than 3 seconds. Symptoms corresponded to sinus rhythm
== END 2024-08-21 23:59 | disposition home or self-care (01) ==
LOC: CARDOPNVT 07:54
PROVIDERS: PCP Nurse Practitioner Family; Visit Provider Internal Medicine Cardiovascular Disease
DX: R00.2 Palpitations (principal); I49.1 Atrial premature depolarization; I48.0 Paroxysmal atrial fibrillation; Z51.89 Encounter for other specified aftercare
CPT/HCPCS: 93225; 93226

== ENCOUNTER 2024-08-13 14:50 | Outpatient (CLI) | payer OTHER, SELFPAY ==
[2024-08-13 16:34] LABS: ALT 36 U/L (14-59); AST 30 U/L (15-37); Albumin 4.2 g/dL (3.4-5.0); Alkaline Phosphatase 159 U/L (46-116); Bilirubin, Direct 0.1 mg/dL (0.0-0.2); Bilirubin, Total 0.4 mg/dL (0.2-1.0); FREE T4 0.78 ng/dL (0.76-1.46); TSH 5.93 uIU/mL (0.36-3.74); Total Protein 7.9 g/dL (6.4-8.2)
[2024-08-24 16:32] LABS: Thyroid Stimulating Immunoglob 1.2 TSI index (<=1.3)
== END 2024-08-13 14:51 | disposition home or self-care (01) ==
PROVIDERS: PCP Nurse Practitioner Family; Visit Provider Student in an Organized Health Care Education/Training Program
DX: E05.00 Thyrotoxicosis with diffuse goiter without thyrotoxic crisis or storm (principal); K76.89 Other specified diseases of liver
CPT/HCPCS: 36415; 80076; 84439; 84443; 84445

== ENCOUNTER 2024-09-23 02:40 | Outpatient (CLI) | payer OTHER, SELFPAY ==
[2024-09-23 13:30] LABS: ALT 31 U/L (14-59); AST 23 U/L (15-37); Albumin 4.0 g/dL (3.4-5.0); Alkaline Phosphatase 118 U/L (46-116); Bilirubin, Direct 0.2 mg/dL (0.0-0.2); Bilirubin, Total 0.6 mg/dL (0.2-1.0); TSH 2.55 uIU/mL (0.36-3.74); Total Protein 7.8 g/dL (6.4-8.2)
[2024-09-23 21:54] LABS: T3,Free 3.8 pg/mL (2.8-5.3)
== END 2024-09-23 02:41 | disposition home or self-care (01) ==
PROVIDERS: PCP Nurse Practitioner Family; Visit Provider Naturopath
DX: E05.90 Thyrotoxicosis, unspecified without thyrotoxic crisis or storm (principal); R74.01 Elevation of levels of liver transaminase levels
CPT/HCPCS: 36415; 80076; 84439; 84443; 84481

== ENCOUNTER 2024-11-17 14:58 | Outpatient (CLI) | payer OTHER, SELFPAY ==
[2024-11-17 15:22] LABS: ALT 32 U/L (14-59); AST 25 U/L (15-37); Albumin 3.9 g/dL (3.4-5.0); Alkaline Phosphatase 98 U/L (46-116); Bilirubin, Direct 0.2 mg/dL (0.0-0.2); Bilirubin, Total 0.7 mg/dL (0.2-1.0); TSH 1.84 uIU/mL (0.36-3.74); Total Protein 7.4 g/dL (6.4-8.2)
[2024-11-17 21:47] LABS: T3,Free 4.0 pg/mL (2.8-5.3)
== END 2024-11-17 14:59 | disposition home or self-care (01) ==
LOC: LBO 14:59
PROVIDERS: PCP Nurse Practitioner Family; Visit Provider Naturopath
DX: E05.90 Thyrotoxicosis, unspecified without thyrotoxic crisis or storm (principal); R74.01 Elevation of levels of liver transaminase levels
CPT/HCPCS: 36415; 80076; 84439; 84443; 84481

== ENCOUNTER 2024-12-24 12:51 | Outpatient (CLI) | payer OTHER, SELFPAY ==
[2024-12-24 15:09] LABS: ALT 33 U/L (14-59); AST 24 U/L (15-37); Albumin 3.9 g/dL (3.4-5.0); Alkaline Phosphatase 107 U/L (46-116); Bilirubin, Direct 0.1 mg/dL (0.0-0.2); Bilirubin, Total 0.3 mg/dL (0.2-1.0); TSH 2.14 uIU/mL (0.36-3.74); Total Protein 7.3 g/dL (6.4-8.2)
[2024-12-24 22:00] LABS: T3,Free 2.9 pg/mL (2.8-5.3)
== END 2024-12-24 12:52 | disposition home or self-care (01) ==
LOC: LBO 12:51
PROVIDERS: PCP Nurse Practitioner Family; Visit Provider Student in an Organized Health Care Education/Training Program
DX: E05.90 Thyrotoxicosis, unspecified without thyrotoxic crisis or storm (principal)
CPT/HCPCS: 36415; 80076; 84439; 84443; 84445; 84481

== ENCOUNTER 2025-03-10 14:12 | Outpatient (CLI) | payer OTHER, SELFPAY ==
[2025-03-10 16:18] LABS: ALT 27 U/L (10-49); AST 25 U/L (<34); Albumin 4.4 g/dL (3.2-5.0); Alkaline Phosphatase 82 U/L (46-116); Bilirubin, Direct 0.1 mg/dL (<=0.3); Bilirubin, Total 0.4 mg/dL (0.2-1.2); TSH 2.01 uIU/mL (0.55-4.78); Total Protein 7.8 g/dL (5.7-8.2)
[2025-03-10 22:52] LABS: T3,Free 3.1 pg/mL (2.8-5.3)
== END 2025-03-10 14:13 | disposition home or self-care (01) ==
LOC: LBO 14:12
PROVIDERS: PCP Nurse Practitioner Family; Visit Provider Naturopath
DX: E05.90 Thyrotoxicosis, unspecified without thyrotoxic crisis or storm (principal); R74.01 Elevation of levels of liver transaminase levels
CPT/HCPCS: 36415; 80076; 84439; 84443; 84481